=== PATIENT | male | born 1945 | race Caucasian/White ===

== ENCOUNTER 2024-10-19 21:10 | Inpatient (IN) ==
[2024-10-19 22:35] LABS: Hemoglobin 10.1 g/dl (14.0-18.0); Mean Corpuscular Hemoglobin 26.1 pg (25.0-34.0); Mean Corpuscular Hgb Conc 31.6 g/dL (32.0-36.0); Mean Corpuscular Volume 82.7 fL (80.0-100.0); Mean Platelet Volume 9.6 fL (9.4-12.4); Platelet Count 354 K/uL (130-400); RDW Coefficient of Variation 19.9 % (11.5-14.5); RDW Standard Deviation 58.4 fL (36.4-46.3); Red Blood Count 3.87 M/uL (4.70-6.10); White Blood Count 8.18 K/ul (4.8-10.8)
[2024-10-19 22:39] LABS: INR 1.1 (0.9-1.1); Partial Thromboplastin Time 28 Seconds (21-31); Prothrombin Time 12.1 Seconds (9.0-12.0)
[2024-10-19 22:48] LABS: Alanine Aminotransferase 10 U/L (7-52); Albumin Globulin Ratio 0.9 (0.9-2); Albumin Level 2.7 gm/dl (3.4-5.0); Alkaline Phosphatase 79 U/L (34-104); Anion Gap 3 (3-11); BUN Creatinine Ratio 43.2 (10-20); Bilirubin,Total 0.4 mg/dl (0.2-1.0); Blood Urea Nitrogen 48 mg/dl (6-23); Carbon Dioxide 38 mmol/L (21-32); Chloride 93 mmol/L (98-107); Creatinine Clr Calc Pharmacy 64.5 ml/min; Globulin 3.1 gm/dl (2.5-4.0); Glucose 191 mg/dl (70-99(Fasting)); Sodium 134 mmol/L (136-145); Total Protein 5.8 gm/dl (6.0-8.3); Troponin I High Sensitivity 16.8 pg/ml (0-20)
--- NOTE | 2024-10-19 23:17 | Emergency Department Note ---
Impression & Plan GI bleed, Sacral wound, Anemia ED Provider Note Name: MALATHI RIVERS Age: 79 Sex: Male Arrives Via: Ambulance Informant: Patient, outpatient records ED Provider: Khalif Dangelo MD Chief Complaint: Bloody stool Impression: As per impressions above Medical Decision Makin-year-old gentleman with a history of diabetes, GERD, weakness, sacral ulcer arrives for evaluation of GI bleed. Patient currently lives in rehab facility locally due to weakness and sacral ulcers. Reportedly developed GI bleed this afternoon and laboratory work at nursing facility showed hemoglobin of 7. On arrival patient is relatively stable appearing. He does have grossly bloody stool which is somewhat black. In the setting of elevated BUN would suspect this is an upper GI bleed which he does state he had in the past. He was given IV Protonix. His hemoglobin currently is 10. Unclear why the difference between the outpatient inpatient study but without hypotension and with current hemoglobin level would hold off on transfusion. Hospitalist consulted for further management. Patient has soft nontender abdomen. No clear indication for CT imaging emergently at this time. Triage/Nursing Notes reviewed by Me External Chart Review by me: I reviewed the outpatient records from local [facility] and notes from 10/19/2024 and his medication history in this chart. Differential:Diverticulosis, AVM, coagulopathy, colitis, inflammatory bowel disease, malignancy, Hayley-Cummins tear, esophagitis, peptic ulcer disease, variceal bleed, gastritis, epistaxis, fissure, hemorrhoids, as well as other pathologies. Vital Signs: reviewed and remarkable for no significant abnormalities Labs:ED labs Reviewed by me and remarkable for mild anemia, elevated bun Cardiac/Tele Monitoring: Cardiac Monitoring: An Order was placed for continuous cardiac monitoring. The monitor shows a rate of 80 with a normal sinus rhythm. Consults:Discussed with Dr. Baer of the hospitalist service who will bring in for further management. Plan: Disposition:Hospitalization. Condition: Good History of Present Illness: 79-year-old gentleman arrives for evaluation of a GI bleed. Patient is currently staying at local rehab facility for generalized weakness and ulcers of the sacrum. He been transferred [facility] a few days ago. Patient notes he had attempted to go home without much success a few days ago. He has some chronic lower pelvic discomfort but denies any change in his pain in the last few days. He has had no recent falls per patient. He denies any abdominal pain. Patient reports that this afternoon/evening started noticing blood in the stool. They checked her hemoglobin at the rehab facility where initial hemoglobin was 7.3. Patient states he is unsure whether he is on any blood thinners. He believes he was on a blood thinner in the past. Past Medical History: Diabetes, GERD, chronic weakness, sacral ulcer Home Medications:See Below Allergies: Patient is unsure if he has any allergies Vitals:Blood Pressure: 105/62, Pulse 85, RR 16, T 36.9C, O2 99% on 2L NC Physical Exam: GENERAL: Patient is chronically unwell appearing and in no distress. RESPIRATORY: No dyspnea. Clear to auscultation and equal bilaterally. CARDIOVASCULAR: Regular rate and rhythm.No murmur appreciated. GASTROINTESTINAL: Abdomen soft, non-tender, no peritonitis. Large right inguinal hernia into scrotum. Large amount of black/bloody stool within diaper. Indwelling Valentine catheter noted EXTREMITIES: Normal motion all extremities, no cyanosis, no edema. NEUROLOGIC: Alert and oriented. No focal neurologic deficits appreciated SKIN: No rash, no jaundice, no diaphoresis. PSYCH: Appropriate GCS: 15 ED Course: Times/Reassessments: Patient in no distress he is comfortable plan for admission. Khalif Dangelo MD Past Med/Surg History Problem List (Updated 10/20/24 @ 04:29 by Khalif Dangelo MD) Anemia (Acute) (HFpEF) heart failure with preserved ejection fraction Type 2 diabetes mellitus Discitis Hyponatremia Sacral wound (Acute) GI bleed (Acute) Social History Smoking Status: Former smoker Hx Alcohol Use: Yes Alcohol type: beer Hx Substance Use: No Preferred Language: Montserratian Specialized Developer Required: No Beliefs That Will Affect Care: None Current Living Situation: Rehab Other Information That Helps Us Care for You: No Feels Safe at Home: Yes Safety Concerns: Feels Safe At This Time Assistive Devices: Denture - Upper, Denture - Lower, Glasses, Hospital Bed, Oxygen - Continuous and Walker Allergies Allergies Allergy/AdvReac Type Severity Reaction Status Date / Time No Known Allergies Allergy Verified 10/19/24 22:38 Home Meds Home Medications Medication Instructions Recorded Confirmed acetaminophen 325 mg tablet 650 mg PO Q4 PRN PAIN 1-3 10/19/24 10/19/24 acetaminophen 500 mg tablet 500 mg PO Q4 PRN TEMP > OR = 100.5 10/19/24 10/19/24 atorvastatin 10 mg tablet 10 mg PO HS 10/19/24 10/19/24 calcium carbonate 500 mg PO Q8 PRN Indigestion 10/19/24 10/19/24 ceftriaxone 2 gram solution for 2,000 mg IV .QDL 10/19/24 10/19/24 injection docusate sodium 100 mg capsule 100 mg PO .Q12 HR PRN Constipation 10/19/24 10/19/24 (Colace) empagliflozin 25 mg tablet 25 mg PO QAM 10/19/24 10/19/24 (Jardiance) ipratropium 0.5 mg-albuterol 3 mg 3 ml inhalation TID 10/19/24 10/19/24 (2.5 mg base)/3 mL nebulization soln lidocaine 4 % topical patch 1 patch topical DAILY 10/19/24 10/19/24 losartan 25 mg tablet 25 mg PO DAILY 10/19/24 10/19/24 melatonin 3 mg tablet 6 mg PO HS 10/19/24 10/19/24 naloxone 4 mg/actuation nasal spray 4 mg intranasal UD PRN Opioid 10/19/24 10/19/24 Overdose nicotine 14 mg/24 hr daily 1 patch transdermal DAILY 10/19/24 10/19/24 transdermal patch ondansetron 4 mg disintegrating 4 mg PO Q6H PRN NAUSEA OR VOMITING 10/19/24 10/19/24 tablet oxycodone 20 mg tablet,crush 20 mg PO Q12H 10/19/24 10/19/24 resistant,extended release 12 hr oxycodone 5 mg tablet 5 mg PO Q4 PRN PAIN 4-6 10/19/24 10/19/24 pantoprazole 40 mg tablet,delayed 40 mg PO HS 10/19/24 10/19/24 release pioglitazone 15 mg tablet (Actos) 15 mg PO BIDM 10/19/24 10/19/24 polyethylene glycol 3350 17 17 g PO QDL PRN Constipation 10/19/24 10/19/24 gram/dose oral powder (Miralax) sennosides 8.6 mg-docusate sodium 1 tab-cap PO QDL PRN Constipation 10/19/24 10/19/24 50 mg tablet (Senokot-S) vancomycin 1.25 gram intravenous 1,250 mg IV QDL 10/19/24 10/19/24 solution oxycodone 5 mg tablet 10 mg PO Q4H PRN PAIN 7-10 10/20/24 10/20/24 Results & Data (ED) Vital Signs Vital Signs - 24 hr 10/19/24 21:20 10/19/24 21:20 10/19/24 21:35 Temperature 36.9 C Temperature Source Oral Pulse Rate 93 H 93 H Pulse Rate [Apical] Respiratory Rate 16 Respiratory Effort / Characteristics Non-Labored Spontaneous Respiratory Depth Normal Respiratory Pattern Regular Blood Pressure 108/66 Blood Pressure [Left Arm] Blood Pressure Mean 80 Blood Pressure Mean [Left Arm] Blood Pressure Position Semi-fowlers Blood Pressure Position [Left Arm] Pulse Oximetry 97 98 Oxygen Delivery Method Nasal Cannula Nasal Cannula Oxygen Flow Rate 2 2 Sepsis Recent Fever Within 48 Hours No Sepsis New/Unexplained Change in Mental Status N/A Sepsis Action Taken by Nursing No Action Required 10/19/24 22:00 10/19/24 23:03 10/19/24 23:24 Temperature Temperature Source Pulse Rate 86 87 Pulse Rate [Apical] 85 Respiratory Rate 16 23 21 Respiratory Effort / Characteristics Non-Labored Spontaneous Respiratory Depth Normal Respiratory Pattern Regular Blood Pressure 107/66 104/66 Blood Pressure [Left Arm] 105/62 Blood Pressure Mean 79 78 Blood Pressure Mean [Left Arm] 76 Blood Pressure Position Blood Pressure Position [Left Arm] Semi-fowlers Pulse Oximetry 99 99 Oxygen Delivery Method Nasal Cannula Nasal Cannula Oxygen Flow Rate 2 2 Sepsis Recent Fever Within 48 Hours Sepsis New/Unexplained Change in Mental Status Sepsis Action Taken by Nursing 10/19/24 23:51 Temperature Temperature Source Pulse Rate 88 Pulse Rate [Apical] Respiratory Rate 22 Respiratory Effort / Characteristics Respiratory Depth Respiratory Pattern Blood Pressure 95/59 L Blood Pressure [Left Arm] Blood Pressure Mean 71 Blood Pressure Mean [Left Arm] Blood Pressure Position Blood Pressure Position [Left Arm] Pulse Oximetry 99 Oxygen Delivery Method Nasal Cannula Oxygen Flow Rate 2 Sepsis Recent Fever Within 48 Hours Sepsis New/Unexplained Change in Mental Status Sepsis Action Taken by Nursing Laboratory Data 10/20/24 01:48 10/19/24 23:53 Lab Results 10/19/24 10/19/24 10/19/24 Range/Units 21:55 23:04 23:53 WBC 8.18 (4.8-10.8) K/ul RBC 3.87 L (4.70-6.10) M/uL Hgb 10.1 L (14.0-18.0) g/dl Hct 32.0 L (42.0-52.0) % MCV 82.7 (80.0-100.0) fL MCH 26.1 (25.0-34.0) pg MCHC 31.6 L (32.0-36.0) g/dL RDW Std Deviation 58.4 H (36.4-46.3) fL RDW Coeff of Arnulfo 19.9 H (11.5-14.5) % Plt Count 354 (130-400) K/uL MPV 9.6 (9.4-12.4) fL PT 12.1 H (9.0-12.0) Seconds INR 1.1 (0.9-1.1) APTT 28 (21-31) Seconds PTT Ratio 1.0 Sodium 134 L (136-145) mmol/L Potassium TNP Cancelled 3.6 Chloride 93 L (98-107) mmol/L Carbon Dioxide 38 H (21-32) mmol/L Anion Gap 3 (3-11) BUN 48 H (6-23) mg/dl Creatinine 1.11 (0.6-1.4) mg/dl Est Cr Clr Drug Dosing 64.5 ml/min eGFR 67.55 BUN/Creatinine Ratio 43.2 H (10-20) Glucose 191 H (70-99(Fasting)) mg/dl Calcium 9.0 (8.6-10.3) mg/dl Total Bilirubin 0.4 (0.2-1.0) mg/dl AST TNP Cancelled 14 ALT 10 (7-52) U/L Alkaline Phosphatase 79 (34-104) U/L Troponin I High Sens 16.8 (0-20) pg/ml Total Protein 5.8 L (6.0-8.3) gm/dl Albumin 2.7 L (3.4-5.0) gm/dl Globulin 3.1 (2.5-4.0) gm/dl Albumin/Globulin Ratio 0.9 (0.9-2) Blood Type A Positive Antibody Screen NEGATIVE Administered Medications Insulin Aspart (Insulin Aspart Per Unit Charge) 0 units SC Q6 ASHLEY Stop: 11/19/24 01:59 Last Admin: 10/20/24 02:00 Dose: 2 units Documented By: DEIDRA Co-signed By: DAWSON Oxycodone HCl (Oxycodone Hcl Ir 5 Mg Tab (Immediate Release)) 5 mg PO Q4 PRN PRN Reason: PAIN 4-6 Stop: 11/03/24 01:41 Last Admin: 10/20/24 02:00 Dose: 5 mg Documented By: DEIDRA Discontinued Medications Pantoprazole Sodium 80 mg/ (Dextrose) 120 mls @ 480 mls/hr IV ONE STA Stop: 10/19/24 23:29 Last Infusion: 10/20/24 00:31 Dose: Infused Documented By: Admin: 10/20/24 00:07 Dose: 480 mls/hr Documented By: ELICEO Melatonin (Melatonin 3 Mg Tab) 6 mg PO ONE ONE Stop: 10/20/24 01:48 Last Admin: 10/20/24 02:00 Dose: 6 mg Documented By: DEIDRA Discharge Plan Visit Data Chief Complaint: Rectal Bleed Stated Complaint: Rectal Bleed, Abnormal Labs ED Provider: Khalif Dangelo Discharge Problem: GI bleed, Sacral wound, Anemia Patient Disposition: Admitted As Inpatient Discharge Instructions Interventions: ED Discharge Assessment Last Done: 10/20/24 00:51 Discharge Problem: GI bleed Qualifiers: GI bleed type/associated pathology: unspecified gastrointestinal hemorrhage type Qualified Code(s): K92.2 - Gastrointestinal hemorrhage, unspecified Sacral wound Qualifiers: Encounter type: initial encounter Qualified Code(s): S31.000A - Unspecified open wound of lower back and pelvis without penetration into retroperitoneum, initial encounter Anemia Qualifiers: Anemia type: other cause Other causes of anemia: acute posthemorrhagic Q ualified Code(s): D62 - Acute posthemorrhagic anemia
--- NOTE | 2024-10-19 23:59 | History & Physical Report ---
Date of Service October 19, 2024 Assessment & Plan (1) GI bleed: (2) Sacral wound: (3) Hyponatremia: (4) Discitis: (5) Type 2 diabetes mellitus: (6) (HFpEF) heart failure with preserved ejection fraction: Plan 79-year-old male PMHx sacral ulcers, GERD, PUD w/ h/o UGI, HTN, HLD, and T2DM presenting for rectal bleed. ED evaluation reveals no leukocytosis, H&H 10.1/32, PT/INR 12.1/1.1; CMP sodium 134, potassium 3.6, chloride 93, CO2 38, BUN 48, ratio 43.2, glucose 191, protein 5.8, albumin 2.7; EKG pending; CXR pending; Provided with Pantoprazole 80mg IV in ED. Patient brought to [facility] rehab, admitted 09/28/2024 after presenting to acute care on 09/12/2024 for back pain with increased edema and urinary frequency. Found to have diastolic congestive heart failure and then was transferred to [facility] given acute exacerbation of heart failure with PNA. Was having ongoing back pain, total duration of 6 months; found to have L1-L2 compression fracture with retropulsion at that time. Repeat MRI performed with persistent changes and possibility of mild progression, neurosurgery and infectious disease recommended 6 weeks ceftriaxone and vancomycin for possibility of discitis. Does also have history of large right inguinal hernia but had refused surgical consultation. #GI bleed H/o UGI bleed, and with history of PUD, approximately 2 years ago; required hospitalization. Presenting today with reported blood in diaper noted per staff. No SOB/palpitations/dizziness/syncope. Reported [facility] hemoglobin was 7. No known history of liver disease. Hemodynamically stable at time of admission. - CBC H/H 10.1/32.0 - H/H q6hr - PT/INR 12.2/1.1; CMP BUN 48 - BUN supportive of UGI source, on pantoprazole at baseline - Type/screen pending - Pantoprazole 40mg IV BID - NPO - BMP am - GI consulted- appreciate input + recs #Sacral ulcer Ongoing; identified during hospitalization [facility]. Noted to have bleeding from area. - Wound care qshift - Would care consulted- appreciate input + recs - Gen sx consulted- appreciate input + recs #Hyponatremia Mildly decreased at admission, minimal recent intake also. - Na 134, glucose 191- corrected 136 - Serum osmol, Urine Na, Urine Osmol pending - BMP am #Discitis Previously diagnosed discitis; with longstanding back pain and found to have compression fractures and recommended to be maintained on total duration of 6 weeks of ceftriaxone and vancomycin. - Still complaining of back pain, mostly located at the area of wound - Continue ceftriaxone + vancomycin - On oxycodone outpatient- may continue for pain #T2DM H/o DMT2; On metformin, pioglitazone, Jardiance. - Most recent A1C 7.9%; pending repeat - Glucose on admission 191 - Hold PO meds while SSI - SSI with target BSG range 110-140mg/dL, CF 30, carb ratio 10 - OF NOTE--> SSI at [facility] as follows: 70-130= 0U; 131-180= 2U; 181-240= 4U; 241-300= 6U; 301-350= 8U; 351-400= 10U; > 400= 12U - T2DM diet - BSG ACHS, q6h while npo - Pharm glycemic management consult placed, appreciate assistance- Adjust regimen as needed #HFpEF H/o HFpEF per report; presenting with bleeding; some edema BLE. On Bumex and Jardiance. Admitting weight 87.6 - Daily weights + strict I+Os - Echo pending - CXR pending - On Bumex at baseline- continue - Leg edema at admission, will promote darron stockings and then consider need for further diuresis- none at admission, also with softer BP initially - SCDs, darron stockings, promote leg elevation and frequent movement #? COPD- No O2 at baseline, presumed COPD per last hospital course; continue bronchodilator therapy #HTN- Losartan #HLD- Atorvastatin #R inguinal hernia- Identified on prior CTAP with some loops of bowel present in the hernia, patient is at risk for developing incarcerated bowel but had refused surgical consult for such Dispo: Admit, PCU VTE prophylaxis: SCD This document was dictated utilizing [employer]. Please excuse any grammatical errors that may be secondary to use of this software. Admission and Anticipated Discharge Date Admission Date: 10/20/2024 History of Present Illness Chief Complaint: Rectal bleeding Primary Care Provider: Peter W. Osbaldo, DO 79-year-old male PMHx sacral ulcers, GERD, PUD w/ h/o UGI, HTN, HLD, and T2DM presenting for rectal bleed. He was at [facility] rehab and the staff noted rectal bleeding on the day of arrival. Patient states that he is presenting today because of the wound on his backside which has been causing him pain. Reports that staff saw blood in his diaper earlier in the day, which was bright red in nature. States that he is having pain at the site specifically when moving. Reports that he does have a history of UGI but no liver disease. Some lower abdominal pain, no N/V/D/C per patient. Denies chest pain, SOB, palpitations, weakness, dizziness, or syncope. Patient without infectious symptoms or F/C. Was sent from [facility] for reported H/H 7.3/24.0 with overt blood in briefs. ED evaluation reveals no leukocytosis, H&H 10.1/32, PT/INR 12.1/1.1; CMP sodium 134, potassium 3.6, chloride 93, CO2 38, BUN 48, ratio 43.2, glucose 191, protein 5.8, albumin 2.7; EKG pending; CXR pending; Provided with Pantoprazole 80mg IV in ED. Patient brought to [facility] rehab, admitted 09/28/2024 after presenting to acute care on 09/12/2024 for back pain with increased edema and urinary frequency. Found to have diastolic congestive heart failure and then was transferred to [facility] given acute exacerbation of heart failure with PNA. Was having ongoing back pain, total duration of 6 months; found to have L1-L2 compression fracture with retropulsion at that time. Repeat MRI performed with persistent changes and possibility of mild progression, neurosurgery and infectious disease recommended 6 weeks ceftriaxone and vancomycin for possibility of discitis. Does also have history of large right inguinal hernia but had refused surgical consultation. Please see Dr. Baer's attestation for adjustments/additions to treatment plan. Allergies Allergy/AdvReac Type Severity Reaction Status Date / Time No Known Allergies Allergy Verified 10/19/24 22:38 Home Medications Medication Instructions Recorded Confirmed Type acetaminophen 325 mg tablet 650 mg PO Q4 PRN PAIN 1-3 10/19/24 10/19/24 History acetaminophen 500 mg tablet 500 mg PO Q4 PRN TEMP > OR = 100.5 10/19/24 10/19/24 History atorvastatin 10 mg tablet 10 mg PO HS 10/19/24 10/19/24 History calcium carbonate 500 mg PO Q8 PRN Indigestion 10/19/24 10/19/24 History ceftriaxone 2 gram solution for 2,000 mg IV .QDL 10/19/24 10/19/24 History injection docusate sodium 100 mg capsule 100 mg PO .Q12 HR PRN Constipation 10/19/24 10/19/24 History (Colace) empagliflozin 25 mg tablet 25 mg PO QAM 10/19/24 10/19/24 History (Jardiance) ipratropium 0.5 mg-albuterol 3 mg 3 ml inhalation TID 10/19/24 10/19/24 History (2.5 mg base)/3 mL nebulization soln lidocaine 4 % topical patch 1 patch topical DAILY 10/19/24 10/19/24 History losartan 25 mg tablet 25 mg PO DAILY 10/19/24 10/19/24 History melatonin 3 mg tablet 6 mg PO HS 10/19/24 10/19/24 History naloxone 4 mg/actuation nasal spray 4 mg intranasal UD PRN Opioid 10/19/24 10/19/24 History Overdose nicotine 14 mg/24 hr daily 1 patch transdermal DAILY 10/19/24 10/19/24 History transdermal patch ondansetron 4 mg disintegrating 4 mg PO Q6H PRN NAUSEA OR VOMITING 10/19/24 10/19/24 History tablet oxycodone 20 mg tablet,crush 20 mg PO Q12H 10/19/24 10/19/24 History resistant,extended release 12 hr oxycodone 5 mg tablet 5 mg PO Q4 PRN PAIN 4-6 10/19/24 10/19/24 History pantoprazole 40 mg tablet,delayed 40 mg PO HS 10/19/24 10/19/24 History release pioglitazone 15 mg tablet (Actos) 15 mg PO BIDM 10/19/24 10/19/24 History polyethylene glycol 3350 17 17 g PO QDL PRN Constipation 10/19/24 10/19/24 History gram/dose oral powder (Miralax) sennosides 8.6 mg-docusate sodium 1 tab-cap PO QDL PRN Constipation 10/19/24 10/19/24 History 50 mg tablet (Senokot-S) vancomycin 1.25 gram intravenous 1,250 mg IV QDL 10/19/24 10/19/24 History solution bumetanide 1 mg tablet 1 mg PO BID 10/20/24 10/20/24 History bumetanide 1 mg tablet mg 10/20/24 History oxycodone 5 mg tablet 10 mg PO Q4H PRN PAIN 7-10 10/20/24 10/20/24 History Past Med/Surg History Problem List (Updated 10/20/24 @ 04:29 by Khalif Dangelo MD) Anemia (Acute) (HFpEF) heart failure with preserved ejection fraction Type 2 diabetes mellitus Discitis Hyponatremia Sacral wound (Acute) GI bleed (Acute) Social History Smoking Status: Former smoker Hx Alcohol Use: Yes Alcohol type: beer Hx Substance Use: No Preferred Language: German Guest Room Attendant Required: No Beliefs That Will Affect Care: None Current Living Situation: Rehab Other Information That Helps Us Care for You: No Feels Safe at Home: Yes Safety Concerns: Feels Safe At This Time Assistive Devices: Denture - Upper, Denture - Lower, Glasses, Hospital Bed, Oxygen - Continuous and Walker Review of Systems Review of Systems: All systems reviewed & are unremarkable except as noted in Subjective Physical Exam Physical Exam: General: No acute distress Skin: Warm and dry Head: Normocephalic, atraumatic Eyes: PERRL, conjunctivae clear, sclera non-icteric ENT: External ear and ear canal without swelling; nose atraumatic; good dentition, tongue normal appearance, pharynx normal Neck: Supple, no LAD Cardio: RRR, no M/G/R, S1 and S2 normal Resp: No respiratory distress, Lungs CTA in all lobes bilaterally, no wheezes, rales, or rhonchi; wearing nasal cannula Abdomen: Soft, symmetric, nontender; No masses or hepatosplenomegaly; Bowel sounds normoactive MSK: No deformities; pulses palpable and equal; 2+ pitting edema. Neuro: Awake, alert; Sensation intact bilaterally; CN grossly intact Psych: Appropriate mood and affect; good judgement and insight. Results & Data Results & Data Vital Signs (Past 12 Hours) Vital Signs Temp Pulse Pulse Resp BP BP Pulse Ox 10/19/24 22:00 85 16 105/62 99 10/19/24 21:35 98 10/19/24 21:20 93 H 10/19/24 21:20 36.9 C 93 H 16 108/66 97 O2 Del Method O2 Flow Rate 10/19/24 22:00 Nasal Cannula 2 10/19/24 21:35 Nasal Cannula 2 10/19/24 21:20 10/19/24 21:20 Nasal Cannula 2 Laboratory Results 10/19/24 10/19/24 10/19/24 23:53 23:04 21:55 WBC 8.18 RBC 3.87 L Hgb 10.1 L Hct 32.0 L MCV 82.7 MCH 26.1 MCHC 31.6 L RDW Std Deviation 58.4 H RDW Coeff of Arnulfo 19.9 H Plt Count 354 MPV 9.6 PT 12.1 H INR 1.1 APTT 28 PTT Ratio 1.0 Sodium 134 L Potassium 3.6 Cancelled TNP Chloride 93 L Carbon Dioxide 38 H Anion Gap 3 BUN 48 H Creatinine 1.11 Est Cr Clr Drug Dosing 64.5 eGFR 67.55 BUN/Creatinine Ratio 43.2 H Glucose 191 H Calcium 9.0 Total Bilirubin 0.4 AST 14 Cancelled TNP ALT 10 Alkaline Phosphatase 79 Troponin I High Sens 16.8 Total Protein 5.8 L Albumin 2.7 L Globulin 3.1 Albumin/Globulin Ratio 0.9 Medications Administered Pantoprazole 80mg IV x 1 Code Status & VTE Plan Code Status DNR/DNI Supervising Physician Co-Signing Physician Notes I personally saw and examined the patient. I independently reviewed the labs, EKG, imaging, problem list, medication list, past medical history and family history. I verified all bruce points and agree with Yue Flores PA-C with the following exceptions and/or additions: 79-year-old male presents to the ER from [facility] due to rectal bleeding. Currently on IV antibiotics for discitis. O/E WN/WD, HS RRR, no murmurs, Chest CTAB, Abdo SNT, Sacral ulcer present without significant surrounding cellulitis but skin breakdown present A/P Acute GI bleed / melena - Pantoprazole 40mg IV BID, NPO, Consult gastroenterology Sacral ulcer / discitis - continue vanc/ceftriaxone, consult general surgery for possible need for debridement and wound care Hypotension - will hold losartan pending serial BP measurements T2DM - Actos should be discontinued given his heart failure diagnosis, otherwise pharmacy consulted for glycemic control while here PG Care Time/CCT Total # of Minutes Spent Total Time Spent with Patient: Total time spent is greater than 50% in coordination of care (as documented) at patient's floor/unit and/or counseling patient: Coding Level of Care Code 33022 INT INP/OBS CARE 3/75MIN Diagnoses GI bleed K92.2 Sacral wound S31.000A Hyponatremia E87.1 Discitis M46.40 Type 2 diabetes mellitus E11.9 (HFpEF) heart failure with preserved ejection fraction I50.30
[2024-10-20] MEDS: PANTOprazole 80 MG in DEXTROSE 5% 100 ML IV STA (00:07)
[2024-10-20 00:24] LABS: Potassium 3.6 mmol/L (3.5-5.1)
[2024-10-20] MEDS ORDERED: ONDANSETRON INJ 2 MG/ML 2 ML VIAL IV PRN (01:22)
[2024-10-20] MEDS ORDERED: POLYETHYLENE (MIRALAX) 17 GM PACK PO PRN (01:22)
[2024-10-20] MEDS ORDERED: GLUCOSE 40% GEL 15 GM TUBE PO PRN (01:38)
[2024-10-20] MEDS ORDERED: GLUCOSE 10 TAB/TUBE PO PRN (01:38)
[2024-10-20] MEDS ORDERED: PHARMACY GLYCEMIC MGMT CONSULT PRN (01:38)
[2024-10-20] MEDS ORDERED: CARBOHYDRATES FOR HYPOGLYCEMIA PO PRN (01:38)
[2024-10-20] MEDS ORDERED: GLUCAGON FOR INJ 1 MG VIAL SQ PRN (01:38)
[2024-10-20] MEDS ORDERED: DEXTROSE 50% 50 ML SYRINGE IV PRN (01:38)
[2024-10-20] MEDS ORDERED: NALOXONE NASAL SPRAY 4 MG ER HOMEPACK PRN (01:42)
[2024-10-20] MEDS ORDERED: CEFTRIAXONE 2 GM IV SCH (01:45)
[2024-10-20] MEDS ORDERED: CALCIUM CARBONATE 500 MG CHEWABLE TAB PO PRN (01:51)
[2024-10-20] MEDS: oxyCODONE HCL IR 5 MG TAB (IMMEDIATE RELEASE) PO PRN ×2 (02:00→15:56)
[2024-10-20] MEDS: INSULIN ASPART PER UNIT CHARGE SC SCH ×2 (02:00→17:24)
[2024-10-20] MEDS: MELATONIN 3 MG TAB PO ONE (02:00)
--- NOTE | 2024-10-20 02:21 | Surgery Consultation ---
<Statement entered by Chloe Weiner - 10/20/24 13:46> I have discussed this case with the surgical PA and I agree with this plan. Date of Consultation October 20, 2024 Assessment & Plan (1) Sacral wound: Patient has been admitted on the hospitalist service from surgery perspective we recommend the following: There is concern the patient has a GI bleed and gastroenterology has been consulted will await their recommendations Would recommend following serial labs providing transfusions as needed Concerning patient's sacral wound: Offloading measures should be employed Wound care nurse has been consulted and we will continue local wound care through this evening Would recommend keeping the patient n.p.o. until he is evaluated by surgical attending on the morning of 10/20/2024 and a determination will be made if patient requires surgical debridement in the operating room; ultimately as this may need to be deferred until the patient is stabilized from a GI bleed standpoint Additional recommendations will be forthcoming based on his clinical course as it unfolds History of Present Illness Reason for Consultation: Sacral wound Attending Physician: Mark Baer MD History of Present Illness This is a 79-year-old male who was recently hospitalized at [facility] secondary to edema and urinary frequency. The patient was treated for diastolic congestive heart failure and then transferred to [facility] where he was treated again for congestive heart failure as well as pneumonia. During this hospitalization the patient was noted to have significant back pain and there is concern about discitis on an MRI. Patient was seen in consultation by neurosurgery and infectious disease were 6-week course of antibiotics in the form of Rocephin and vancomycin were recommended. Patient [facility] where he was then transferred to [facility] secondary to rectal bleeding. It is nowhere the mention that the patient developed a sacral ulcer which was reportedly present during his previous hospitalization. Patient notes some increasing pain in his sacral area but he denies any fevers, shakes, or chills. Laboratories were reviewed since arrival to [facility] where he had labs were white blood cell count and platelet count were normal. Patient's hemoglobin was noted to be 7.3 with a hematocrit of 24.0. Coagulation studies revealed an INR of 1.1. Chemistry profile showed sodium of 134 with a normal potassium. BUN was 48 and his creatinine was 1.1. The patient did have a repeat hemoglobin and hematocrit checked after his initial ones and his hemoglobin had risen to 10.1 and his hematocrit had risen to 32.0. At the time of my interview he was resting comfortably in bed he was in no distress. Allergies Allergy/AdvReac Type Severity Reaction Status Date / Time No Known Allergies Allergy Verified 10/19/24 22:38 Home Medications Medication Instructions Recorded Confirmed Type acetaminophen 325 mg tablet 650 mg PO Q4 PRN PAIN 1-3 10/19/24 10/19/24 History acetaminophen 500 mg tablet 500 mg PO Q4 PRN TEMP > OR = 100.5 10/19/24 10/19/24 History atorvastatin 10 mg tablet 10 mg PO HS 10/19/24 10/19/24 History calcium carbonate 500 mg PO Q8 PRN Indigestion 10/19/24 10/19/24 History ceftriaxone 2 gram solution for 2,000 mg IV .QDL 10/19/24 10/19/24 History injection docusate sodium 100 mg capsule 100 mg PO .Q12 HR PRN Constipation 10/19/24 10/19/24 History (Colace) empagliflozin 25 mg tablet 25 mg PO QAM 10/19/24 10/19/24 History (Jardiance) ipratropium 0.5 mg-albuterol 3 mg 3 ml inhalation TID 10/19/24 10/19/24 History (2.5 mg base)/3 mL nebulization soln lidocaine 4 % topical patch 1 patch topical DAILY 10/19/24 10/19/24 History losartan 25 mg tablet 25 mg PO DAILY 10/19/24 10/19/24 History melatonin 3 mg tablet 6 mg PO HS 10/19/24 10/19/24 History naloxone 4 mg/actuation nasal spray 4 mg intranasal UD PRN Opioid 10/19/24 10/19/24 History Overdose nicotine 14 mg/24 hr daily 1 patch transdermal DAILY 10/19/24 10/19/24 History transdermal patch ondansetron 4 mg disintegrating 4 mg PO Q6H PRN NAUSEA OR VOMITING 10/19/24 10/19/24 History tablet oxycodone 20 mg tablet,crush 20 mg PO Q12H 10/19/24 10/19/24 History resistant,extended release 12 hr oxycodone 5 mg tablet 5 mg PO Q4 PRN PAIN 4-6 10/19/24 10/19/24 History pantoprazole 40 mg tablet,delayed 40 mg PO HS 10/19/24 10/19/24 History release pioglitazone 15 mg tablet (Actos) 15 mg PO BIDM 10/19/24 10/19/24 History polyethylene glycol 3350 17 17 g PO QDL PRN Constipation 10/19/24 10/19/24 History gram/dose oral powder (Miralax) sennosides 8.6 mg-docusate sodium 1 tab-cap PO QDL PRN Constipation 10/19/24 10/19/24 History 50 mg tablet (Senokot-S) vancomycin 1.25 gram intravenous 1,250 mg IV QDL 10/19/24 10/19/24 History solution oxycodone 5 mg tablet 10 mg PO Q4H PRN PAIN 7-10 10/20/24 10/20/24 History Patient History Social History Smoking Status: Former smoker Hx Alcohol Use: Yes Alcohol type: beer Hx Substance Use: No Preferred Language: Iranian Technical Illustrations Map Inker Required: No Beliefs That Will Affect Care: None Current Living Situation: Rehab Other Information That Helps Us Care for You: No Feels Safe at Home: Yes Safety Concerns: Feels Safe At This Time Assistive Devices: Denture - Upper, Denture - Lower, Glasses, Hospital Bed, Oxygen - Continuous and Walker Review of Systems Review of Systems: All systems reviewed & are unremarkable except as noted in HPI & below Physical Exam Physical Exam: The patient was able to slightly logroll in the bed where I attempted to examine his sacrum. The patient did appear to have a sacral wound without any purulent drainage but there is necrotic tissue noted in the wound bed. I did not appreciate any crepitus noted in the soft tissue. Constitutional: WD/WN, vitals as above Eyes: no conjunctival abnormality ENMT: Ears: no hearing impairment and no external ear abnormality Mouth: no oropharynx abnormality Neck: trachea midline Respiratory: normal respiratory effort; no respiratory distress and no labored breathing Cardiovascular: Rate/Rhythm: regular rate and regular rhythm Gastrointestinal (Abdomen): Soft and nontender to palpation Musculoskeletal: No calf tenderness Skin: no rashes Neurologic: moves all extremities Psychiatric: A+Ox3, euthymic affect Results & Data Vital Signs (Past 12 Hours) Vital Signs Temp Pulse Pulse Resp BP BP Pulse Ox 10/20/24 01:23 36.6 C 88 18 138/71 97 10/20/24 00:30 82 20 125/69 98 10/20/24 00:04 93 H 20 115/64 98 10/19/24 23:51 88 22 95/59 L 99 10/19/24 23:24 87 21 104/66 10/19/24 23:03 86 23 107/66 99 10/19/24 22:00 85 16 105/62 99 10/19/24 21:35 98 10/19/24 21:20 93 H 10/19/24 21:20 36.9 C 93 H 16 108/66 97 O2 Del Method O2 Flow Rate 10/20/24 01:23 Nasal Cannula 2 10/20/24 00:30 Nasal Cannula 2 10/20/24 00:04 Nasal Cannula 2 10/19/24 23:51 Nasal Cannula 2 10/19/24 23:24 10/19/24 23:03 Nasal Cannula 2 10/19/24 22:00 Nasal Cannula 2 10/19/24 21:35 Nasal Cannula 2 10/19/24 21:20 10/19/24 21:20 Nasal Cannula 2 PG Care Time/CCT Total # of Minutes Spent Total Time Spent with Patient: Total time spent is greater than 50% in coordination of care (as documented) at patient's floor/unit and/or counseling patient: Coding Level of Care Code 84738 INT INP/OBS CARE 3/75MIN Diagnoses Sacral wound S31.000A
[2024-10-20 02:22] LABS: Hematocrit (blood only) 32.4 % (42.0-52.0); Hemoglobin 10.4 g/dl (14.0-18.0)
--- NOTE | 2024-10-20 02:30 | XRay Report ---
EXAM: XR chest 1V portable CLINICAL HISTORY: HF. TECHNIQUE: An X-ray image of the chest is obtained in AP projection. COMPARISON: No prior studies are available for comparison. FINDINGS: Pulmonary Parenchyma: The right middle zone and bilateral lower zone have inhomogeneous areas. Prominent perihilar bronchovascular markings with peribronchial cuffing. Obscuration of right diaphragm and right costophrenic angle. The left costophrenic angle is not seen. Heart and Mediastinum: Mild cardiomegaly. No mediastinal widening or masses. No hilar or mediastinal lymphadenopathy. Bony Thorax: Age indeterminate displaced fracture of the left clavicle. Soft Tissues: Soft tissues overlying the chest wall are unremarkable. IMPRESSION: 1. Mild cardiomegaly. Perihilar pulmonary congestion. 2. The right middle zone and bilateral lower consolidation could represent an infectious process/Pulmonary edema. This could be due to CHF. 3. Mild right pleural effusion. The left costophrenic angle is not properly seen. 4. Age indeterminate displaced fracture of the left clavicle. Electronically signed by Kelton Patiño 10-20-2024 02:30 AM
[2024-10-20] MEDS ORDERED: NALOXONE HCL 0.4 MG/1 ML VIAL/CARP IV PRN (02:31)
[2024-10-20] MEDS ORDERED: VANCOMYCIN CONSULT ACTIVE PRN (04:09)
[2024-10-20] MEDS: LACTATED RINGER'S 1,000 ML IV SCH (06:24)
[2024-10-20 07:02] LABS: Hematocrit (blood only) 30.7 % (42.0-52.0); Hemoglobin 9.7 g/dl (14.0-18.0)
[2024-10-20] MEDS: ALBUT/IPRATROP 3MG/0.5MG NEB 3 ML VIAL INH SCH (07:19)
[2024-10-20 08:14] LABS: Estimated Average Glucose 194 mg/dl; Hemoglobin A1C 8.4 % (4.5-5.6)
[2024-10-20 08:29] LABS: BUN Creatinine Ratio 44.7 (10-20); Calcium 9.1 mg/dl (8.6-10.3); Creatinine Clr Calc Pharmacy 72.3 ml/min; Potassium 4.1 mmol/L (3.5-5.1)
--- NOTE | 2024-10-20 08:49 | XRay Report ---
XR chest 2V PA/lateral CLINICAL HISTORY: Hypoxia. COMPARISON STUDY: Chest radiograph performed earlier today. FINDINGS: Subacute to chronic distal left clavicular fracture is incidentally noted. A right PICC is in place. Tip projects over the cavoatrial junction. No pneumothorax. Moderate right and small left p leural effusions are similar to prior exam. Perihilar and bibasilar opacities are noted. Left basilar opacity has slightly increased. Pulmonary edema has slightly progressed. The heart is mildly enlarge d. IMPRESSION: 1. Mild cardiomegaly with increase in interstitial pulmonary edema. 2. Moderate right and small left pleural effusions. Associated perihilar and bibasilar opacities, gre ater on the right, may represent atelectasis or consolidation. Radiographic follow-up is recommended. ACT 112: Negative or not required by law. Electronically signed by: Terry Tanner M.D. 10/20/2024 8:48 AM
[2024-10-20] MEDS ORDERED: BUMETANIDE 1 MG TAB PO SCH (09:00)
[2024-10-20] MEDS ORDERED: LOSARTAN POTASSIUM 25 MG TAB PO SCH (09:00)
[2024-10-20] MEDS: NICOTINE 14 MG/24 HR PATCH TD SCH (09:25)
[2024-10-20] MEDS: PANTOprazole 40 MG/10 ML SYR IV SCH (09:30)
[2024-10-20] MEDS: oxyCODONE HCL 20 MG TABCR (OxyCONTIN) PO SCH (09:31)
--- NOTE | 2024-10-20 09:55 | Pharmacy Report ---
Pharmacy PK ABX Note - Date of Service October 20, 2024 - Assessment and Plan Assessment 79 year old M receiving Vancomycin 1250 mg IV q24h for treatment of discitis. Currently also with sacral wound ulcer. Recently admitted 09/12/24 at [facility] with heart failure and Pneumonia. ID recommended 6 weeks of IV Vancomycin and Rocephin for discitis found on MRI. It is not clear when the IV antibiotics were started. He was discharged to Rehab on 09/28/24 but now admitted here for rectal bleeding. Surgery consulted for possible need for debridement of sacral wound. Plan Vancomycin * Trough obtained this morning was 16.9 mcg/ml. This is at goal. * Will continue with IV Vancomycin 1250 mg q24h per ID recs. * New trough level ordered for: 10/23/24 with AM labs Pharmacy will continue to follow and will adjust dose/frequency as necessary. Thank you. Pharmacy has transitioned to AUC monitoring for vancomycin. AUC/ANGEL is the preferred PK/PD target and is associated with decreased risk of nephrotoxicity compared to traditional trough targets.
--- NOTE | 2024-10-20 10:10 | Gastrointestinal Consultation ---
Date of Consultation October 20, 2024 Assessment & Plan (1) GI bleed: Patient had several black stools overnight that he tells me is similar to past UGI bleeding he had in the past. He did have a drop in hgb with elevated BUN. - keep NPO. - he is agreeable to proceed with an EGD today to further evaluate dark stools/amemia. - continue with protonix IV BID. Supervising Physician Co-Signing Physician Notes I personally saw and examined the patient. I have reviewed the chart and agree with the documentation provided by the PLANT CHANGER including discussion about the assessment, treatment and plan. Briefly, 79 year old male with a past medical history of sacral ulcers, GERD, PUD with UGI, HTN, HLD, and DM II who presented to [facility] for concerns over rectal bleeding. He was at [facility] rehab and the staff noted rectal bleeding on the day of arrival. Patients main concern is back pain due to a sacral ulcer. Overnight black bowel movements. He tells me this is similar to when he had an UGIB in the past at [facility]. He is not sure, but feels this was secondary to ulcers. Plan for EGD today. NPO and ppi bid iv. History of Present Illness Reason for Consultation: suspected GI bleed Requesting Physician: Valentina Flores PAC Attending Physician: Ashley Jerome MD History of Present Illness Patient is a 79 year old male with a past medical history of sacral ulcers, GERD, PUD with UGI, HTN, HLD, and DM II who presented to [facility] for concerns over rectal bleeding. He was at [facility] rehab and the staff noted rectal bleeding on the day of arrival. Patients main concern is back pain due to a sacral ulcer. Nursing tells me that over night he had several black bowel movements. He tells me this is similar to when he had an UGIB in the past at [facility]. He is not sure, but feels this was secondary to ulcers. 10/19/24 hgb 10.1. 10/20/24 9.7 he denies any nausea, vomiting, acid reflux, dysphagia, abdominal pain, brbpr. He denies nsaid use. Allergies Allergy/AdvReac Type Severity Reaction Status Date / Time No Known Allergies Allergy Verified 10/19/24 22:38 Home Medications Medication Instructions Recorded Confirmed Type acetaminophen 325 mg tablet 650 mg PO Q4 PRN PAIN 1-3 10/19/24 10/19/24 History acetaminophen 500 mg tablet 500 mg PO Q4 PRN TEMP > OR = 100.5 10/19/24 10/19/24 History atorvastatin 10 mg tablet 10 mg PO HS 10/19/24 10/19/24 History calcium carbonate 500 mg PO Q8 PRN Indigestion 10/19/24 10/19/24 History ceftriaxone 2 gram solution for 2,000 mg IV .QDL 10/19/24 10/19/24 History injection docusate sodium 100 mg capsule 100 mg PO .Q12 HR PRN Constipation 10/19/24 10/19/24 History (Colace) empagliflozin 25 mg tablet 25 mg PO QAM 10/19/24 10/19/24 History (Jardiance) ipratropium 0.5 mg-albuterol 3 mg 3 ml inhalation TID 10/19/24 10/19/24 History (2.5 mg base)/3 mL nebulization soln lidocaine 4 % topical patch 1 patch topical DAILY 10/19/24 10/19/24 History losartan 25 mg tablet 25 mg PO DAILY 10/19/24 10/19/24 History melatonin 3 mg tablet 6 mg PO HS 10/19/24 10/19/24 History naloxone 4 mg/actuation nasal spray 4 mg intranasal UD PRN Opioid 10/19/24 10/19/24 History Overdose nicotine 14 mg/24 hr daily 1 patch transdermal DAILY 10/19/24 10/19/24 History transdermal patch ondansetron 4 mg disintegrating 4 mg PO Q6H PRN NAUSEA OR VOMITING 10/19/24 10/19/24 History tablet oxycodone 20 mg tablet,crush 20 mg PO Q12H 10/19/24 10/19/24 History resistant,extended release 12 hr oxycodone 5 mg tablet 5 mg PO Q4 PRN PAIN 4-6 10/19/24 10/19/24 History pantoprazole 40 mg tablet,delayed 40 mg PO HS 10/19/24 10/19/24 History release pioglitazone 15 mg tablet (Actos) 15 mg PO BIDM 10/19/24 10/19/24 History polyethylene glycol 3350 17 17 g PO QDL PRN Constipation 10/19/24 10/19/24 History gram/dose oral powder (Miralax) sennosides 8.6 mg-docusate sodium 1 tab-cap PO QDL PRN Constipation 10/19/24 10/19/24 History 50 mg tablet (Senokot-S) vancomycin 1.25 gram intravenous 1,250 mg IV QDL 10/19/24 10/19/24 History solution bumetanide 1 mg tablet 1 mg PO BID 10/20/24 History oxycodone 5 mg tablet 10 mg PO Q4H PRN PAIN 7-10 10/20/24 10/20/24 History Patient History Social History Smoking Status: Former smoker Hx Alcohol Use: Yes Alcohol type: beer Hx Substance Use: No Preferred Language: Turkmen Communication Ability: Effective Room Inspector Required: No Beliefs That Will Affect Care: None Current Living Situation: Rehab Other Information That Helps Us Care for You: No Feels Safe at Home: Yes Safety Concerns: Feels Safe At This Time Assistive Devices: Denture - Upper, Denture - Lower, Glasses, Hospital Bed, Oxygen - Continuous and Walker Review of Systems Review of Systems: All systems reviewed & are unremarkable except as noted in HPI & below Physical Exam Constitutional: WD/WN, vitals as above Respiratory: normal respiratory effort, lungs clear to auscultation Cardiovascular: Rate/Rhythm: regular rate and regular rhythm Gastrointestinal (Abdomen): normal bowel sounds, soft, nontender, no hepatosplenomegaly Psychiatric: Orientation: alert and oriented x 3 Affect: euthymic affect Results & Data Vital Signs (Past 12 Hours) Vital Signs Temp Pulse Pulse Resp BP BP Pulse Ox 10/20/24 07:42 97.3 F L 51 L 19 116/50 L 95 10/20/24 07:19 88 18 98 10/20/24 03:39 97.3 F L 84 16 113/61 100 10/20/24 02:15 10/20/24 01:23 97.9 F 88 18 138/71 97 10/20/24 01:12 93 H 10/20/24 00:30 82 20 125/69 98 10/20/24 00:04 93 H 20 115/64 98 10/19/24 23:51 88 22 95/59 L 99 10/19/24 23:24 87 21 104/66 10/19/24 23:03 86 23 107/66 99 O2 Del Method O2 Flow Rate 10/20/24 07:42 Nasal Cannula 2 10/20/24 07:19 Nasal Cannula 2 10/20/24 03:39 Nasal Cannula 2.0 10/20/24 02:15 Nasal Cannula 2 10/20/24 01:23 Nasal Cannula 2 10/20/24 01:12 10/20/24 00:30 Nasal Cannula 2 10/20/24 00:04 Nasal Cannula 2 10/19/24 23:51 Nasal Cannula 2 10/19/24 23:24 10/19/24 23:03 Nasal Cannula 2 Coding Level of Care Code 52805 INT INP/OBS CARE 255MIN Diagnoses GI bleed K92.2 GI bleed type/associated pathology: unspecified gastrointestinal hemorrhage type (1) GI bleed GI bleed type/associated pathology: unspecified gastrointestinal hemorrhage type Qualified Code(s): K92.2 - Gastrointestinal hemorrhage, unspecified
--- NOTE | 2024-10-20 10:16 | Pharmacy Report ---
Pharmacy Glycemic Short Note 2 - Date of Service October 20, 2024 - Glycemic Short BSG Results (Last 24 hours): 10/19/24 10/20/24 10/20/24 21:55 01:53 05:59 Glucose 191 H POC Glucose 171 H 126 H 10/20/24 06:47 Glucose 116 H POC Glucose OUTPATIENT ANTIDIABETIC REGIMEN: * Jardiance 25 mg daily * Actos 15 mg BID HbA1c: 8.4% on 10/20/24 ASSESSMENT: * 79 y/o M admitted for rectal bleed, sacral wound ulcer and discitis being treated with IV antibiotics. He has history of Type 2 diabetes managed only with oral anti-diabetic meds. * Pharmacy consulted for glycemic management yesterday. Novolog started last night with moderate stress parameters. * Patient is NPO. BSG was only slightly elevated last night. Today fasting BSG is 116 mg/gl. Holding off on starting basal insulin since BSG at goal. * Possible surgical debridement of wound ulcer. Will continue to hold basal insulin due to NPO status. PLAN FOR INPATIENT GLYCEMIC CONTROL: * Hold outpatient oral diabetes medications * Basal insulin * NONE * Bolus insulin * NovoLog per scale ACHS or Q6hrs while NPO * Goal Range: Low 110 mg/dL - High 140 mg/dL * Correction Factor: 30 mg/dL/unit * Nutritional / Prandial insulin per carb ratio of 1 unit per 10 grams CHO consumed
[2024-10-20] MEDS: cefTRIAXone SODIUM 2,000 MG/50 ML BAG IV SCH (11:58)
--- NOTE | 2024-10-20 13:01 | Anesthesiology Consultation ---
Date of Service October 20, 2024 Assessment & Plan Chart Review Chart Review: Acceptable Risk for Surgery and Patient NOT seen in Pre Admission Testing ASA ASA3 Proposed Anesthesia Anesthesia Type: MAC Risk / Benefits Reviewed With: PT / POA / Parent / Guardian, Accepts Plan and Informed Consent Obtained Additional Comments: Pt. wishes TO CONTINUE HIS DNR throughout the perioperative period. DOES NOT WANT resuscitation including CPR or defibrillation or intubation History Surgery Operation Date: 10/20/24 16:55 Proposed Procedures p Esophagogastroduodenoscopy Payal Moe MD Height/Weight Height: 6 ft 3 in Weight: 80.2 kg Allergies Allergy/AdvReac Type Severity Reaction Status Date / Time No Known Allergies Allergy Verified 10/19/24 22:38 Medications Home Medications Medication Instructions Recorded Confirmed Last Taken acetaminophen 325 mg tablet 650 mg PO Q4 PRN PAIN 1-3 10/19/24 10/19/24 Unknown acetaminophen 500 mg tablet 500 mg PO Q4 PRN TEMP > OR = 100.5 10/19/24 10/19/24 Unknown atorvastatin 10 mg tablet 10 mg PO HS 10/19/24 10/19/24 Unknown calcium carbonate 500 mg PO Q8 PRN Indigestion 10/19/24 10/19/24 Unknown ceftriaxone 2 gram solution for 2,000 mg IV .QDL 10/19/24 10/19/24 Unknown injection docusate sodium 100 mg capsule 100 mg PO .Q12 HR PRN Constipation 10/19/24 10/19/24 Unknown (Colace) empagliflozin 25 mg tablet 25 mg PO QAM 10/19/24 10/19/24 Unknown (Jardiance) ipratropium 0.5 mg-albuterol 3 mg 3 ml inhalation TID 10/19/24 10/19/24 Unknown (2.5 mg base)/3 mL nebulization soln lidocaine 4 % topical patch 1 patch topical DAILY 10/19/24 10/19/24 Unknown losartan 25 mg tablet 25 mg PO DAILY 10/19/24 10/19/24 Unknown melatonin 3 mg tablet 6 mg PO HS 10/19/24 10/19/24 Unknown naloxone 4 mg/actuation nasal spray 4 mg intranasal UD PRN Opioid 10/19/24 10/19/24 Unknown Overdose nicotine 14 mg/24 hr daily 1 patch transdermal DAILY 10/19/24 10/19/24 Unknown transdermal patch ondansetron 4 mg disintegrating 4 mg PO Q6H PRN NAUSEA OR VOMITING 10/19/24 10/19/24 Unknown tablet oxycodone 20 mg tablet,crush 20 mg PO Q12H 10/19/24 10/19/24 Unknown resistant,extended release 12 hr oxycodone 5 mg tablet 5 mg PO Q4 PRN PAIN 4-6 10/19/24 10/19/24 Unknown pantoprazole 40 mg tablet,delayed 40 mg PO HS 10/19/24 10/19/24 Unknown release pioglitazone 15 mg tablet (Actos) 15 mg PO BIDM 10/19/24 10/19/24 Unknown polyethylene glycol 3350 17 17 g PO QDL PRN Constipation 10/19/24 10/19/24 Unknown gram/dose oral powder (Miralax) sennosides 8.6 mg-docusate sodium 1 tab-cap PO QDL PRN Constipation 10/19/24 10/19/24 Unknown 50 mg tablet (Senokot-S) vancomycin 1.25 gram intravenous 1,250 mg IV QDL 10/19/24 10/19/24 Unknown solution bumetanide 1 mg tablet 1 mg PO BID 10/20/24 Unknown oxycodone 5 mg tablet 10 mg PO Q4H PRN PAIN 7-10 10/20/24 10/20/24 Unknown Active Medications Generic Name Dose Route Start Last Admin Trade Name Freq PRN Reason Stop Dose Admin Albuterol 3 ml 10/20/24 07:00 10/20/24 12:55 Albut/Ipratrop 3mg/0.5mg Neb 3 Ml Vial INH 11/19/24 06:59 Not Given TIDR ASHLEY Protocol Pantoprazole Sodium 40 mg in 10 mls @ 5 mls/min 10/20/24 09:00 10/20/24 09:30 Protonix IV 11/19/24 08:59 5 mls/min BID ASHLEY Administration Ceftriaxone Sodium 2,000 mg in 50 mls @ 100 mls/hr 10/20/24 11:00 10/20/24 12:36 Rocephin IV 11/09/24 11:01 Infused Q24H ASHLEY Infusion Lactated Ringer's 1,000 mls @ 80 mls/hr 10/20/24 06:00 10/20/24 06:24 Lr IV 10/20/24 18:29 80 mls/hr .[id number] ASHLEY Administration Insulin Aspart 0 units 10/20/24 02:00 10/20/24 12:03 Insulin Aspart Per Unit Charge SC 11/19/24 01:59 1 units Q6 ASHLEY Administration Miscellaneous 1 each 10/20/24 09:00 10/20/24 09:21 Remove Nicoderm Patch N/A 11/19/24 08:59 Not Given QAM ASHLEY Nicotine 1 patch 10/20/24 09:00 10/20/24 09:25 Nicotine 14 Mg/24 Hr Patch TD 11/19/24 08:59 Not Given DAILY ASHLEY Oxycodone HCl 5 mg 10/20/24 01:42 10/20/24 02:00 Oxycodone Hcl Ir 5 Mg Tab (Immediate Release) PO 11/03/24 01:41 5 mg Q4 PRN Administration PAIN 4-6 Oxycodone HCl 20 mg 10/20/24 09:00 10/20/24 09:31 Oxycodone Hcl 20 Mg Tabcr (Oxycontin) PO 11/03/24 08:59 20 mg Q12H ASHLEY Administration NPO Date Last Intake of Fluids: 10/20/24 Time Last Intake of Fluids: 09:30 Date Last Intake of Solids: 10/19/24 Time Last Intake of Solids: 12:00 Exercise / Class Metabolic Activity III < 4 Walking/Shop/Light housework Past Anesthesia History No Hx of Anesthesia Complications and No Family Hx of Anesthesia Complications History of PONV No Hx of PONV and No Hx of Motion Sickness Social History Smoking Status: Former smoker Hx Alcohol Use: Yes Alcohol type: beer alcohol intake frequency: 3 or more drinks per day Hx Substance Use: No substance use type: does not use Physical Exam Vital Signs Last Vital Signs Temp 36.8 C 10/20/24 12:44 Pulse 92 H 10/20/24 12:44 Resp 20 10/20/24 12:44 BP 114/69 10/20/24 12:44 Pulse Ox 96 10/20/24 12:44 O2 Del Method Nasal Cannula 10/20/24 12:44 O2 Flow Rate 2 10/20/24 12:44 ENMT Mouth: + edentulous Thyromental Distance: > or= 3.5 Finger Breadths Mallampati Class: I Neck normal visual inspection Respiratory normal respiratory effort Auscultation: + wheezes Cardiovascular Rate/Rhythm: regular rate and regular rhythm Skin multiple ecchymoses Psychiatric Orientation: alert and oriented x 3 Testing Laboratory Results 10/20/24 06:39 10/20/24 06:47 PT 12.1 Seconds (9.0-12.0) H 10/19/24 21:55 INR 1.1 (0.9-1.1) 10/19/24 21:55 APTT 28 Seconds (21-31) 10/19/24 21:55 Hemoglobin A1c 8.4 % (4.5-5.6) H 10/20/24 06:39 Blood Type A Positive 10/19/24 23:04 Antibody Screen NEGATIVE 10/19/24 23:04 10/20/24 10/20/24 10/20/24 11:58 05:59 01:53 POC Glucose 151 H 126 H 171 H
--- NOTE | 2024-10-20 13:53 | GI REPORT ---
[facility] Patient: MALATHI RIVERS : 1945 Sex at : Male Age: 79 Years Procedure: Upper GI endoscopy Date: 10/20/2024 Attending Physician: Dagoberto Moe MD Referring MD: Ashley Jerome Md; Caden Roblero Indications: - Recent gastrointestinal bleeding - Suspected upper gastrointestinal bleeding - Heme positive stool Medications: - Monitored Anesthesia Care Complications: - No immediate complications. Estimated Blood Loss: - Estimated blood loss: None. Procedure: - Prior to the procedure, a History and Physical was performed, and patient medications and allergies were reviewed. The patient's tolerance of previous anesthesia was also reviewed. The risks and benefits of the procedure and the sedation options and risks were discussed with the patient. All questions were answered, and informed consent was obtained. Prior Anticoagulants: The patient has taken no anticoagulant or antiplatelet agents. ASA Grade Assessment: III - A patient with severe systemic disease. After reviewing the risks and benefits, the patient was deemed in satisfactory condition to undergo the procedure. - The egd scope was introduced through the mouth and advanced to the third part of the duodenum. - The upper GI endoscopy was accomplished without difficulty. - The patient tolerated the procedure well. Findings: - A small hiatal hernia was present. - LA Grade B (one or more mucosal breaks greater than 5 mm, not extending between the tops of two mucosal folds) esophagitis with no bleeding was found at the gastroesophageal junction (on retroflexion). NO biopsies done as active bleeding. - The entire examined stomach was normal. - The examined duodenum was normal. - Given no active bleeding noted in the upper GI tract, the patient was turned around and the same scope was introduced to the descending colon. The colon was not prepped but hemorrhoids were noted with green-brown stool. Then in the mid sigmoid and descending colon old blood was noted next to diverticuli. The findings quite suggest diverticular bleeding that stopped. My concern is he is quite ill and not a great candidate for colonoscopy. Impression: - Small hiatal hernia. - LA Grade B reflux esophagitis with no bleeding. Rule out Sosa's esophagus. - NO biopsies done as active bleeding. - Normal stomach. - Normal examined duodenum. - Given no active bleeding noted in the upper GI tract, the patient was turned around and the same scope was introduced to the descending colon. The colon was not prepped but hemorrhoids were noted with green-brown stool. Then in the mid sigmoid and descending colon old blood was noted next to diverticuli. The findings quite suggest diverticular bleeding that stopped. My concern is he is quite ill and not a great candidate for colonoscopy. - No specimens collected. Recommendation: - Discharge patient to home (ambulatory). - Resume previous diet. - Continue present medications. - Await pathology results. - Return to primary care physician as previously scheduled. - Patient has a contact number available for emergencies. The signs and symptoms of potential delayed complications were discussed with the patient. Return to normal activities tomorrow. Written discharge instructions were provided to the patient. - The unprepped flex sig suggest diverticular bleeding. A colon mass or ischemic colitis cannot be ruled out. There were hemorrhoids present but there was no active bleeding around them and brown stool was noted there. Around diverticulosis there was a significant amount of old blood hematochezia noted. He is not actively bleeding right now but my suspicion is highly consistent with diverticular bleeding that just happened. He has a very difficult colonoscopy given his respiratory issues, multiple medical problems, sacral wounds and will require complete prep for a colonoscopy. GI will follow but for now would favor supportive care unless he has active bleeding. if he does have active bleeding, I would suggest he gets transferred to a facility with IR guided embolization availability Procedure Code(s): - 83328, Esophagogastroduodenoscopy, flexible, transoral; diagnostic, including collection of specimen(s) by brushing or washing, when performed (separate procedure) Diagnosis Code(s): - K92.2, Gastrointestinal hemorrhage, unspecified - R19.5, Other fecal abnormalities - K44.9, Diaphragmatic hernia without obstruction or gangrene - K21.00, Gastro-esophageal reflux disease with esophagitis, without bleeding CPT(R) - 2023 copyright [employer]. All Rights Reserved. The CPT codes, CCI edits and ICD codes generated are intended as suggestions and were generated based on input data. These codes are preliminary and upon professional fee coder review may be revised to meet current compliance and payer requirements. The provider is responsible for the final determination of appropriate codes, and modifiers. Dagoberto Moe MD This document has been electronically signed. Note Initiated:10/20/2024 Note Completed:10/20/2024 1:52 PM \\[email or web address]\[id number]
--- NOTE | 2024-10-20 14:03 | Anesthesiology Progress Note ---
Date of Service October 20, 2024 Anesthesia Post Procedure Vital Signs Vital Signs: Temp Pulse Pulse Resp BP BP Pulse Ox 10/20/24 13:49 81 20 103/56 L 96 10/20/24 12:44 36.8 C 92 H 20 114/69 96 10/20/24 10:32 36.6 C 86 16 105/65 97 10/20/24 09:08 10/20/24 07:42 36.3 C L 51 L 19 116/50 L 95 10/20/24 07:19 88 18 98 10/20/24 07:00 77 10/20/24 03:39 36.3 C L 84 16 113/61 100 10/20/24 02:15 10/20/24 01:23 36.6 C 88 18 138/71 97 10/20/24 01:12 93 H 10/20/24 00:30 82 20 125/69 98 10/20/24 00:04 93 H 20 115/64 98 10/19/24 23:51 88 22 95/59 L 99 10/19/24 23:24 87 21 104/66 10/19/24 23:03 86 23 107/66 99 10/19/24 22:00 85 16 105/62 99 10/19/24 21:35 98 10/19/24 21:20 93 H 10/19/24 21:20 36.9 C 93 H 16 108/66 97 O2 Del Method O2 Flow Rate 10/20/24 13:49 Nasal Cannula 2 10/20/24 12:44 Nasal Cannula 2 10/20/24 10:32 Room Air 10/20/24 09:08 Nasal Cannula 2 10/20/24 07:42 Nasal Cannula 2 10/20/24 07:19 Nasal Cannula 2 10/20/24 07:00 10/20/24 03:39 Nasal Cannula 2.0 10/20/24 02:15 Nasal Cannula 2 10/20/24 01:23 Nasal Cannula 2 10/20/24 01:12 10/20/24 00:30 Nasal Cannula 2 10/20/24 00:04 Nasal Cannula 2 10/19/24 23:51 Nasal Cannula 2 10/19/24 23:24 10/19/24 23:03 Nasal Cannula 2 10/19/24 22:00 Nasal Cannula 2 10/19/24 21:35 Nasal Cannula 2 10/19/24 21:20 10/19/24 21:20 Nasal Cannula 2 Pain Intensity Buttock: Pain Intensity: 5 Back: Pain Intensity: 6 Transfer of Care Handoff Completed per policy Notes Mental Status: alert / awake / arousable and participated in evaluation Patient Amnestic to Procedure: Yes Nausea / Vomiting: adequately controlled Pain: adequately controlled Airway Patency, RR, SpO2: stable & adequate BP & HR: stable & adequate Hydration State: stable & adequate Anesthetic Complications: no major complications apparent and Pt Satisfied with anesthetic care
[2024-10-20] MEDS: PROPOFOL IV EMULSION 10 MG/ML 20 ML VIAL IV ONE (15:04)
[2024-10-20] MEDS: LIDOCAINE 2% 2 ML VIAL/AMP(20MG/ML) INFIL ONE ×2 (15:04)
[2024-10-20] MEDS: KETAMINE HCL 10MG/ML SYR ONE (15:04)
[2024-10-20] MEDS: MIDAZOLAM HCL 1 MG/ML 2ML VIAL ONE (15:04)
[2024-10-20] MEDS: PHENYLEPHRINE 100MCG/ML 5ML SYR ONE (15:04)
[2024-10-20] MEDS: VANCOMYCIN HCL 1,250 MG in SODIUM CHLORIDE 0.9% 250 ML IV SCH (15:08)
[2024-10-20] MEDS ORDERED: Nursing to Pharmacy Communication SCH (15:15)
[2024-10-20 15:21] LABS: Hematocrit (blood only) 30.3 % (42.0-52.0); Hemoglobin 9.5 g/dl (14.0-18.0)
--- NOTE | 2024-10-20 17:34 | Hospitalist Progress Note ---
<Statement entered by Ashley Jerome MD - 10/21/24 07:10> Lower GI bleed - passing maroon clots. May be old blood from diverticular bleed, ischemic colitis however no pain or tenderness. Supportive care, transfusing in evening for falling Hct and tachycardia, CTA abdomen ordered Date of Service October 20, 2024 Assessment & Plan (1) GI bleed: (2) Sacral wound: (3) Hyponatremia: (4) Discitis: (5) Type 2 diabetes mellitus: (6) (HFpEF) heart failure with preserved ejection fraction: Plan 79-year-old male PMHx sacral ulcers, GERD, PUD w/ h/o UGI, HTN, HLD, and T2DM presenting for rectal bleed. Patient brought to [facility] rehab, admitted 09/28/2024 after presenting to acute care on 09/12/2024 for back pain with increased edema and urinary frequency. Found to have diastolic congestive heart failure and then was transferred to [facility] given acute exacerbation of heart failure with PNA. Was having ongoing back pain, total duration of 6 months; found to have L1-L2 compression fracture with retropulsion at that time. Repeat MRI performed with persistent changes and possibility of mild progression, neurosurgery and infectious disease recommended 6 weeks ceftriaxone and vancomycin for possibility of discitis. Does also have history of large right inguinal hernia but had refused surgical consultation #GI bleed CBC w/ hgb stable at 9.5, BMP stable creatinine. GI consulted - recommended EGD/PPI s/p EGD - negative for bleeding. Also did portion of colonoscopy which revealed old blood in colon After EGD patient passed massive blood clot from rectum. repeat hgb stable. CTA of abdomen & pelvis pending. continue to monitor hgb q6h if rectal bleeding persists. Advanced to clear liquid diet. #Sacral ulcer Ongoing; identified during hospitalization [facility]. Noted to have bleeding from area. Wound care qshift Would care consulted- appreciate input + recs Gen sx consulted- may require debridement but continue to stabilize GI bleed prior to pursuing debridement. Continue pain management w/ outpatient regimen. #Hyponatremia - resolved. Mildly decreased at admission, minimal recent intake also. Na 137 continue to monitor. #Discitis Previously diagnosed discitis; with longstanding back pain and found to have compression fractures and recommended to be maintained on total duration of 6 weeks of ceftriaxone and vancomycin. Continue ceftriaxone + vancomycin On oxycodone outpatient- may continue for pain Obtain records from to review previous hospitalization. #T2DM H/o DMT2; On metformin, pioglitazone, Jardiance. A1c 8.4% SSI with target BSG range 110-140mg/dL, CF 30, carb ratio 10 Pharm glycemic management consult placed, appreciate assistance- Adjust regimen as needed #HFpEF H/o HFpEF per report; presenting with bleeding; some edema BLE. On Bumex and Jardiance. Admitting weight 87.6 Daily weights + strict I+Os Echo pending CXR -> mild cardiomegaly w/ increase in interstitial pulmonary edema. moderate right & small left pleural effusions. SCDs, darron stockings, promote leg elevation and frequent movement Will obtain records from [facility] to verify Bumex dosing. Currently on hold but will resume when able. Chronic conditions: COPD- No O2 at baseline, presumed COPD per last hospital course; continue bronchodilator therapy HTN- Losartan HLD- Atorvastatin R inguinal hernia- Identified on prior CTAP with some loops of bowel present in the hernia, patient is at risk for developing incarcerated bowel but had refused surgical consult for such Dispo: Admit, PCU VTE prophylaxis: SCD Updated patient's partner at bedside 10/20. Admission and Anticipated Discharge Date Admission Date: October 20, 2024 Subjective Patient seen and examined this morning. Patient reports to be doing okay today. He does have pain in his sacral wound region. Reports bloody BM's started yesterday. He reports lower abdominal discomfort as well. Reports increase in frequeny of BM's. Denies N/V. He reports he is not typically on oxygen at home but has been at rehab. Denies SOB or CP. Physical Exam Constitutional: WD/WN, vitals as above Eyes: PERRL, conjunctivae normal, anicteric sclerae Respiratory: normal respiratory effort, lungs clear to auscultation Cardiovascular: RRR, no murmur, no edema Gastrointestinal (Abdomen): +BS, lower abdomen tender to palpation Psychiatric: A+Ox3, euthymic affect Results & Data Results & Data Vital Signs (Past 12 Hours) Vital Signs Temp Pulse Pulse Resp BP Pulse Ox O2 Del Method 10/20/24 15:46 36.4 C L 106 H 20 104/57 L 92 Nasal Cannula 10/20/24 14:53 36.4 C L 85 20 108/57 L 95 Nasal Cannula 10/20/24 14:18 87 20 105/66 99 Nasal Cannula 10/20/24 14:04 80 20 110/64 98 Nasal Cannula 10/20/24 13:49 81 20 103/56 L 96 Nasal Cannula 10/20/24 12:44 36.8 C 92 H 20 114/69 96 Nasal Cannula 10/20/24 10:32 36.6 C 86 16 105/65 97 Room Air 10/20/24 09:08 Nasal Cannula 10/20/24 07:42 36.3 C L 51 L 19 116/50 L 95 Nasal Cannula 10/20/24 07:19 88 18 98 Nasal Cannula 10/20/24 07:00 77 O2 Flow Rate 10/20/24 15:46 2 10/20/24 14:53 10/20/24 14:18 2 10/20/24 14:04 2 10/20/24 13:49 2 10/20/24 12:44 2 10/20/24 10:32 10/20/24 09:08 2 10/20/24 07:42 2 10/20/24 07:19 2 10/20/24 07:00 PG Care Time/CCT Total # of Minutes Spent Total Time Spent with Patient: Total time spent is greater than 50% in coordination of care (as documented) at patient's floor/unit and/or counseling patient: Coding Level of Care Code 73682 SUB INP/OBS CARE 3/50MIN Diagnoses GI bleed K92.2 GI bleed type/associated pathology: unspecified gastrointestinal hemorrhage type Sacral wound S31.000A Encounter type: initial encounter Hyponatremia E87.1 Discitis M46.40 Type 2 diabetes mellitus E11.9 (HFpEF) heart failure with preserved ejection fraction I50.30 (1) GI bleed GI bleed type/associated pathology: unspecified gastrointestinal hemorrhage type Qualified Code(s): K92.2 - Gastrointestinal hemorrhage, unspecified (2) Sacral wound Encounter type: initial encounter Qualified Code(s): S31.000A - Unspecified open wound of lower back and pelvis without penetration into retroperitoneum, initial encounter
[2024-10-20 18:09] LABS: Hemoglobin 8.2 g/dl (14.0-18.0)
[2024-10-20] MEDS ORDERED: SODIUM CHLORIDE 0.9% 100 ML IV PRN (18:26)
[2024-10-20] MEDS: OPTIRAY 320 125ml IV ONE (18:50)
--- NOTE | 2024-10-20 19:19 | CT Scan Report ---
CT ABDOMEN and PELVIS with INTRAVENOUS CONTRAST HISTORY: Abdominal pain TECHNIQUE: CT abdomen and pelvis with contrast. IV CONTRAST: 100 mL of OMNIPAQUE 300 ENTERIC CONTRAST: Not Given COMPARISON: FINDINGS: LOWER CHEST: Cardiac enlargement. Small right greater than left pleural fluids. Adjacent confluent pulmonary densities are likely atelectasis with possible superimposed pneumonia. LIVER: No focal lesion identified. GALLBLADDER/BILIARY: Small layering intraluminal hyperdense material may represent small gallstones and/or sludge. No evidence of cholecystitis on CT. No abnormal biliary dilatation. SPLEEN: Unremarkable. PANCREAS: Unremarkable. ADRENALS: Unremarkable. KIDNEYS: Small cortical cysts. No stones or hydronephrosis identified. PERITONEUM/RETROPERITONEUM. No lymphadenopathy by size criteria. Extensive atherosclerosis with stenoses of the celiac trunk, the SMA, the renal arteries and the ANJU. Stenoses of the iliac arteries. Infrarenal abdominal aortic aneurysm measuring up to 3.3 cm. GASTROINTESTINAL: No obstruction. There are inflammatory changes of the rectum with extensive wall thickening. Areas of increased vascularity along the wall of the inflamed rectum. Small hiatal hernia. ABDOMINAL WALL: Evidence of prior repair along the anterior abdominal and pelvic wall with mesh. There is a large right inguinal hernia containing a significant portion of the nondistended ascending colon. 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 REPRODUCTIVE: No pelvic mass detected. URINARY BLADDER: Valentine catheter in place. Intraluminal air likely relates to current instrumentation. BONES: Age-indeterminate compression fractures of L1 and L2 vertebral bodies with moderate retropulsion. IMPRESSION: Proctitis with increased arterial vascularity along the wall of the inflamed rectum. This may represent the source of bleeding. Large right inguinal hernia containing a significant portion of the nondistended ascending colon. 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 Age-indeterminate compression fractures of L1 and L2 vertebral bodies with moderate retropulsion. Small pleural fluids with subjacent bibasilar pulmonary densities that may represent atelectasis and pneumonia. Electronically signed by Jean Cox 10-20-2024 7:19 PM
[2024-10-20] MEDS: ATORVASTATIN 10 MG TAB PO SCH (20:47)
[2024-10-20] MEDS: MELATONIN 3 MG TAB PO SCH (20:48)
[2024-10-21 01:23] LABS: Hematocrit (blood only) 26.4 % (42.0-52.0); Hemoglobin 8.6 g/dl (14.0-18.0)
[2024-10-21 06:50] LABS: Hematocrit (blood only) 27.6 % (42.0-52.0); Hemoglobin 8.7 g/dl (14.0-18.0)
[2024-10-21 07:01] LABS: BUN Creatinine Ratio 46.2 (10-20); Calcium 8.8 mg/dl (8.6-10.3); Creatinine Clr Calc Pharmacy 86.9 ml/min; Potassium 3.9 mmol/L (3.5-5.1)
--- NOTE | 2024-10-21 08:06 | Gastroenterology Progress Note ---
Date of Service October 21, 2024 Assessment & Plan (1) GI bleed: Plan: Appears to be clinically resolved. Most likely etiology is diverticulosis. Hemoglobin stable. Ultimately should consider colonoscopy. I am concerned about instituting a bowel prep in the setting of his sacral ulcers. I suspect his large scrotal hernia is mostly small bowel and should not interfere with the colonoscopy. Await primary team's input regarding timing of colonoscopy either as an inpatient or as an outpatient based on status of his sacral ulcers. Admission and Anticipated Discharge Date Admission Date: October 20, 2024 Subjective Denies overt bleeding no recent bowel movements. Denies abdominal pain shortness of breath or chest pain. Physical Exam Physical Exam: Eyes; anicteric HENT No masses Chest clear to A Cor S1, S2 physiologic Abd: softer nontender no masses Ext no edema Large scrotal hernia Results & Data Results & Data Vital Signs (Past 12 Hours) Vital Signs Temp Pulse Pulse Resp BP BP Pulse Ox 10/21/24 07:24 36.5 C 92 H 18 103/64 98 10/21/24 07:10 86 15 97 10/21/24 02:31 36.5 C 83 18 103/63 99 10/20/24 23:00 36.6 C 89 14 93/61 L 98 10/20/24 22:42 36.7 C 86 18 90/60 L 98 10/20/24 22:14 36.6 C 83 14 89/58 L 98 10/20/24 21:14 36.6 C 101 H 14 89/50 L 97 10/20/24 20:44 36.7 C 97 H 14 94/72 L 10/20/24 20:29 36.6 C 98 H 14 94/72 L 98 10/20/24 20:11 36.6 C 98 H 14 87/58 L 98 O2 Del Method O2 Flow Rate 10/21/24 07:24 Nasal Cannula 2 10/21/24 07:10 Nasal Cannula 2 10/21/24 02:31 Nasal Cannula 10/20/24 23:00 2 10/20/24 22:42 Nasal Cannula 10/20/24 22:14 2 10/20/24 21:14 2 10/20/24 20:44 10/20/24 20:29 2 10/20/24 20:11 2 Laboratory Results Laboratory Results - last 48 hr 10/19/24 10/19/24 10/19/24 21:55 23:04 23:53 WBC 8.18 RBC 3.87 L Hgb 10.1 L Hct 32.0 L MCV 82.7 MCH 26.1 MCHC 31.6 L RDW Std Deviation 58.4 H RDW Coeff of Arnulfo 19.9 H Plt Count 354 MPV 9.6 PT 12.1 H INR 1.1 APTT 28 PTT Ratio 1.0 Sodium 134 L Potassium TNP Cancelled 3.6 Chloride 93 L Carbon Dioxide 38 H Anion Gap 3 BUN 48 H Creatinine 1.11 Est Cr Clr Drug Dosing 64.5 eGFR 67.55 BUN/Creatinine Ratio 43.2 H Glucose 191 H POC Glucose Estimat Average Glucose Hemoglobin A1c Calcium 9.0 Total Bilirubin 0.4 AST TNP Cancelled 14 ALT 10 Alkaline Phosphatase 79 Troponin I High Sens 16.8 Total Protein 5.8 L Albumin 2.7 L Globulin 3.1 Albumin/Globulin Ratio 0.9 Nasal Screen MRSA (PCR) Random Vancomycin Blood Type A Positive Blood Type Recheck Antibody Screen NEGATIVE Crossmatch See Detail 10/20/24 10/20/24 10/20/24 01:33 01:48 01:53 WBC RBC Hgb 10.4 L Hct 32.4 L MCV MCH MCHC RDW Std Deviation RDW Coeff of Arnulfo Plt Count MPV PT INR APTT PTT Ratio Sodium Potassium Chloride Carbon Dioxide Anion Gap BUN Creatinine Est Cr Clr Drug Dosing eGFR BUN/Creatinine Ratio Glucose POC Glucose 171 H Estimat Average Glucose Hemoglobin A1c Calcium Total Bilirubin AST ALT Alkaline Phosphatase Troponin I High Sens Total Protein Albumin Globulin Albumin/Globulin Ratio Nasal Screen MRSA (PCR) Negative Random Vancomycin Blood Type Blood Type Recheck Antibody Screen Crossmatch 10/20/24 10/20/24 10/20/24 05:59 06:39 06:47 WBC RBC Hgb 9.7 L Hct 30.7 L MCV MCH MCHC RDW Std Deviation RDW Coeff of Arnulfo Plt Count MPV PT INR APTT PTT Ratio Sodium 137 Potassium 4.1 Chloride 95 L Carbon Dioxide 39 H Anion Gap 3 BUN 42 H Creatinine 0.94 Est Cr Clr Drug Dosing 72.3 eGFR 82.46 BUN/Creatinine Ratio 44.7 H Glucose 116 H POC Glucose 126 H Estimat Average Glucose 194 Hemoglobin A1c 8.4 H Calcium 9.1 Total Bilirubin AST ALT Alkaline Phosphatase Troponin I High Sens Total Protein Albumin Globulin Albumin/Globulin Ratio Nasal Screen MRSA (PCR) Random Vancomycin 16.9 Blood Type Blood Type Recheck Antibody Screen Crossmatch 10/20/24 10/20/24 10/20/24 11:58 15:03 16:25 WBC RBC Hgb 9.5 L Hct 30.3 L MCV MCH MCHC RDW Std Deviation RDW Coeff of Arnulfo Plt Count MPV PT INR APTT PTT Ratio Sodium Potassium Chloride Carbon Dioxide Anion Gap BUN Creatinine Est Cr Clr Drug Dosing eGFR BUN/Creatinine Ratio Glucose POC Glucose 151 H 137 H Estimat Average Glucose Hemoglobin A1c Calcium Total Bilirubin AST ALT Alkaline Phosphatase Troponin I High Sens Total Protein Albumin Globulin Albumin/Globulin Ratio Nasal Screen MRSA (PCR) Random Vancomycin Blood Type Blood Type Recheck Antibody Screen Crossmatch 10/20/24 10/20/24 10/20/24 17:58 19:01 20:22 WBC RBC Hgb 8.2 L Hct 26.0 L MCV MCH MCHC RDW Std Deviation RDW Coeff of Arnulfo Plt Count MPV PT INR APTT PTT Ratio Sodium Potassium Chloride Carbon Dioxide Anion Gap BUN Creatinine Est Cr Clr Drug Dosing eGFR BUN/Creatinine Ratio Glucose POC Glucose 174 H Estimat Average Glucose Hemoglobin A1c Calcium Total Bilirubin AST ALT Alkaline Phosphatase Troponin I High Sens Total Protein Albumin Globulin Albumin/Globulin Ratio Nasal Screen MRSA (PCR) Random Vancomycin Blood Type Blood Type Recheck A Positive Antibody Screen Crossmatch 10/21/24 10/21/24 10/21/24 00:32 05:57 07:25 WBC RBC Hgb 8.6 L 8.7 L Hct 26.4 L 27.6 L MCV MCH MCHC RDW Std Deviation RDW Coeff of Arnulfo Plt Count MPV PT INR APTT PTT Ratio Sodium 139 Potassium 3.9 Chloride 98 Carbon Dioxide 38 H Anion Gap 3 BUN 36 H Creatinine 0.78 Est Cr Clr Drug Dosing 86.9 eGFR 90.71 BUN/Creatinine Ratio 46.2 H Glucose 130 H POC Glucose 163 H Estimat Average Glucose Hemoglobin A1c Calcium 8.8 Total Bilirubin AST ALT Alkaline Phosphatase Troponin I High Sens Total Protein Albumin Globulin Albumin/Globulin Ratio Nasal Screen MRSA (PCR) Random Vancomycin Blood Type Blood Type Recheck Antibody Screen Crossmatch PG Care Time/CCT Total # of Minutes Spent Total Time Spent with Patient: Total time spent is greater than 50% in coordination of care (as documented) at patient's floor/unit and/or counseling patient: Coding Level of Care Code 55924 SUB INP/OBS CARE 3/50MIN Diagnoses GI bleed K92.2 GI bleed type/associated pathology: unspecified gastrointestinal hemorrhage type (1) GI bleed GI bleed type/associated pathology: unspecified gastrointestinal hemorrhage type Qualified Code(s): K92.2 - Gastrointestinal hemorrhage, unspecified
--- NOTE | 2024-10-21 10:07 | Pharmacy Report ---
Pharmacy PK ABX Note - Date of Service October 21, 2024 - Assessment and Plan Assessment 10/21: * Improvement in renal fxn today requires a dose increase for vancomycin. Will adjust timing of level as well. * Still attempting to figure out appropriate stop date for iv abx. 10/20: 79 year old M receiving Vancomycin 1250 mg IV q24h for treatment of discitis. Currently also with sacral wound ulcer. Recently admitted 09/12/24 at [facility] with heart failure and Pneumonia. ID recommended 6 weeks of IV Vancomycin and Rocephin for discitis found on MRI. It is not clear when the IV antibiotics were started. He was discharged to Rehab on 09/28/24 but now admitted here for rectal bleeding. Surgery consulted for possible need for debridement of sacral wound. Plan Vancomycin * Empirically increase dose to 1000 mg IV q12h * Predicted to achieve steady state AUC/ANGEL of 503 which is therapeutic. * Random level ordered for 10/22/24 in the AM Pharmacy will continue to follow and will adjust dose/frequency as necessary. Thank you. Pharmacy has transitioned to AUC monitoring for vancomycin. AUC/ANGEL is the preferred PK/PD target and is associated with decreased risk of nephrotoxicity compared to traditional trough targets.
--- NOTE | 2024-10-21 10:28 | Surgery Progress Note ---
Date of Service October 21, 2024 Assessment & Plan (1) Sacral wound: Plan: This will need debridement this hospital stay. If he becomes medically stable would consider performing on Wednesday or of next week. Will perform bone biopsy at that time. Monitor GI and cardiac issues to determine timing of debridement. (2) GI bleed: (3) Type 2 diabetes mellitus: (4) (HFpEF) heart failure with preserved ejection fraction: (5) Osteomyelitis of sacrum: Admission and Anticipated Discharge Date Admission Date: October 20, 2024 Subjective pt seen. no new complaints. he had several large bloody bm's past 24 hours. Physical Exam Constitutional: WD/WN, vitals as above no acute distress and not ill appearing Eyes: PERRL, conjunctivae normal, anicteric sclerae EOM intact bilaterally ENMT: external ear and nose normal, oropharynx normal Ears: no hearing impairment Neck: trachea midline, no thyromegaly Respiratory: normal respiratory effort; no respiratory distress and does not use accessory muscles Cardiovascular: Rate/Rhythm: regular rate and regular rhythm Gastrointestinal (Abdomen): Soft. Nontender. Large right inguinal hernia. Baseline per patient Musculoskeletal: Multiple necrotic ulcerations on the patient's back. 3 large ones in total. 1 is open and the other 2 are covered. All 3 have black eschar Skin: no rashes, warm and dry Psychiatric: Orientation: alert, oriented x 3 and cooperative Results & Data Vital Signs (Past 12 Hours) Vital Signs Temp Pulse Pulse Resp BP BP Pulse Ox 10/21/24 09:17 10/21/24 07:24 36.5 C 92 H 18 103/64 98 10/21/24 07:10 86 15 97 10/21/24 07:00 86 10/21/24 02:31 36.5 C 83 18 103/63 99 10/20/24 23:00 36.6 C 89 14 93/61 L 98 10/20/24 22:42 36.7 C 86 18 90/60 L 98 O2 Del Method O2 Flow Rate 10/21/24 09:17 Nasal Cannula 2 10/21/24 07:24 Nasal Cannula 2 10/21/24 07:10 Nasal Cannula 2 10/21/24 07:00 10/21/24 02:31 Nasal Cannula 10/20/24 23:00 2 10/20/24 22:42 Nasal Cannula PG Care Time/CCT Total # of Minutes Spent Total Time Spent with Patient: Total time spent is greater than 50% in coordination of care (as documented) at patient's floor/unit and/or counseling patient: Coding Level of Care Code 77602 SUB INP/OBS CARE 08/12MIN Diagnoses Sacral wound S31.000A Encounter type: initial encounter GI bleed K92.2 GI bleed type/associated pathology: unspecified gastrointestinal hemorrhage type Type 2 diabetes mellitus E11.9 (HFpEF) heart failure with preserved ejection fraction I50.30 Osteomyelitis of sacrum M46.28 (1) Sacral wound Encounter type: initial encounter Qualified Code(s): S31.000A - Unspecified open wound of lower back and pelvis without penetration into retroperitoneum, initial encounter (2) GI bleed GI bleed type/associated pathology: unspecified gastrointestinal hemorrhage type Qualified Code(s): K92.2 - Gastrointestinal hemorrhage, unspecified
[2024-10-21] MEDS: VANCOMYCIN HCL 1,000 MG/270 ML BAG IV STA (11:14)
[2024-10-21 11:47] LABS: Hematocrit (blood only) 26.1 % (42.0-52.0); Hemoglobin 8.3 g/dl (14.0-18.0)
[2024-10-21] MEDS: LANTUS PER UNIT CHARGE SC SCH (12:58)
--- NOTE | 2024-10-21 15:44 | Hospitalist Progress Note ---
Date of Service October 21, 2024 Assessment & Plan (1) GI bleed: (2) Sacral wound: (3) Hyponatremia: (4) Discitis: (5) Type 2 diabetes mellitus: (6) (HFpEF) heart failure with preserved ejection fraction: Plan 79-year-old male PMHx sacral ulcers, GERD, PUD w/ h/o UGI, HTN, HLD, and T2DM presenting for rectal bleed. Patient brought to [facility] rehab, admitted 09/28/2024 after presenting to acute care on 09/12/2024 for back pain with increased edema and urinary frequency. Found to have diastolic congestive heart failure and then was transferred to [facility] given acute exacerbation of heart failure with PNA. Was having ongoing back pain, total duration of 6 months; found to have L1-L2 compression fracture with retropulsion at that time. Repeat MRI performed with persistent changes and possibility of mild progression, neurosurgery and infectious disease recommended 6 weeks ceftriaxone and vancomycin for possibility of discitis. Does also have history of large right inguinal hernia but had refused surgical consultation #GI bleed GI consulted - recommended EGD/PPI, will require colonoscopy at some point when stable. inpatient vs outpatient. s/p EGD - negative for bleeding. Also did portion of colonoscopy which revealed old blood in colon After EGD patient passed massive blood clots from rectum, bleeding has stopped 10/21. CTA of abdomen & pelvis: proctitis. s/p 1 unit PRBCs 10/20. hgb stable at 8.3. #Sacral ulcer Ongoing; identified during hospitalization [facility]. Wound care qshift Would care consulted- appreciate input + recs Gen sx consulted- will go to OR for debridement next week & bone bx. CTA + for osteomyelitis of coccyx Continue vancomycin & Rocephin. - previously on for presumed discitis. Wound culture pending. Continue pain management w/ outpatient regimen. #Discitis Previously diagnosed discitis; with longstanding back pain and found to have compression fractures and recommended to be maintained on total duration of 6 weeks of ceftriaxone and vancomycin. Continue ceftriaxone + vancomycin On oxycodone outpatient- may continue for pain Obtain records from to review previous hospitalization. PT/OT consulted - recommend sitting w/ waffle cushion in chair if patient can tolerate. #T2DM H/o DMT2; On metformin, pioglitazone, Jardiance. A1c 8.4% SSI with target BSG range 110-140mg/dL, CF 30, carb ratio 10 Pharm glycemic management consult placed, appreciate assistance- Adjust regimen as needed #HFpEF H/o HFpEF per report; presenting with bleeding; some edema BLE. On Bumex and Jardiance. Admitting weight 87.6 Daily weights + strict I+Os Echo pending CXR -> mild cardiomegaly w/ increase in interstitial pulmonary edema. moderate right & small left pleural effusions. SCDs, darron stockings, promote leg elevation and frequent movement Will obtain records from [facility] to verify Bumex dosing. Currently on hold but will resume when able. Chronic conditions: COPD- No O2 at baseline, presumed COPD per last hospital course; continue bronchodilator therapy HTN- Losartan HLD- Atorvastatin R inguinal hernia- Identified on prior CTAP with some loops of bowel present in the hernia, patient is at risk for developing incarcerated bowel but had refused surgical consult for such Dispo: Admit, PCU VTE prophylaxis: SCD Discussed w/ general surgery 10/21. Admission and Anticipated Discharge Date Admission Date: October 20, 2024 Subjective Patient seen and examined this morning. Patient reports that his bleeding in his bowels has slowed down. He reports his abdomen is feeling better as well. Denies N/V. Denies CP or SOB. Reports pain in his sacral wound region. Physical Exam Constitutional: WD/WN, vitals as above Eyes: PERRL, conjunctivae normal, anicteric sclerae Respiratory: normal respiratory effort, lungs clear to auscultation Cardiovascular: RRR, no murmur, no edema Gastrointestinal (Abdomen): normal bowel sounds, soft, nontender, no hepatosplenomegaly Psychiatric: A+Ox3, euthymic affect Results & Data Results & Data Vital Signs (Past 12 Hours) Vital Signs Temp Pulse Pulse Resp BP Pulse Ox O2 Del Method 10/21/24 14:00 92 H 10/21/24 11:24 36.4 C L 100 H 19 94/55 L 95 Nasal Cannula 10/21/24 09:17 Nasal Cannula 10/21/24 07:24 36.5 C 92 H 18 103/64 98 Nasal Cannula 10/21/24 07:10 86 15 97 Nasal Cannula 10/21/24 07:00 86 O2 Flow Rate 10/21/24 14:00 10/21/24 11:24 2 10/21/24 09:17 2 10/21/24 07:24 2 10/21/24 07:10 2 10/21/24 07:00 PG Care Time/CCT Total # of Minutes Spent Total Time Spent with Patient: Total time spent is greater than 50% in coordination of care (as documented) at patient's floor/unit and/or counseling patient: Coding Level of Care Code 38568 SUB INP/OBS CARE 3/50MIN Diagnoses GI bleed K92.2 GI bleed type/associated pathology: unspecified gastrointestinal hemorrhage type Sacral wound S31.000A Encounter type: initial encounter Hyponatremia E87.1 Discitis M46.40 Type 2 diabetes mellitus E11.9 (HFpEF) heart failure with preserved ejection fraction I50.30 (1) GI bleed GI bleed type/associated pathology: unspecified gastrointestinal hemorrhage type Qualified Code(s): K92.2 - Gastrointestinal hemorrhage, unspecified (2) Sacral wound Encounter type: initial encounter Qualified Code(s): S31.000A - Unspecified open wound of lower back and pelvis without penetration into retroperitoneum, initial encounter
[2024-10-21] MEDS ORDERED: ALBUT/IPRATROP 3MG/0.5MG NEB 3 ML VIAL INH PRN (15:55)
[2024-10-21] MEDS: VANCOMYCIN HCL 1,000 MG/270 ML BAG IV SCH (20:18)
--- NOTE | 2024-10-22 08:18 | Gastroenterology Progress Note ---
Date of Service October 22, 2024 Assessment & Plan (1) GI bleed: Plan: Clinically resolved hemodynamically stable hemoglobin stable. Will ultimately need colonoscopy if patient agrees after management of his sacral ulcerations which is planned for this week. Admission and Anticipated Discharge Date Admission Date: October 20, 2024 Subjective Denies any further rectal bleeding no abdominal pain no shortness of breath no chest pain Physical Exam Physical Exam: No acute distress Respiratory rate regular Cardiac rhythm regular Abdomen soft nontender Results & Data Results & Data Vital Signs (Past 12 Hours) Vital Signs Temp Pulse Resp BP Pulse Ox O2 Del Method O2 Flow Rate 10/22/24 07:26 36.6 C 92 H 18 101/59 L 95 Nasal Cannula 2 10/22/24 02:21 36.8 C 90 20 105/60 94 Nasal Cannula 10/21/24 22:47 36.6 C 85 18 103/60 98 Nasal Cannula Laboratory Results Laboratory Results - last 48 hr 10/19/24 10/20/24 10/20/24 23:04 06:47 11:58 Hgb Hct Sodium 137 Potassium 4.1 Chloride 95 L Carbon Dioxide 39 H Anion Gap 3 BUN 42 H Creatinine 0.94 Est Cr Clr Drug Dosing 72.3 eGFR 82.46 BUN/Creatinine Ratio 44.7 H Glucose 116 H POC Glucose 151 H Calcium 9.1 Blood Type A Positive Blood Type Recheck Antibody Screen NEGATIVE Crossmatch See Detail 10/20/24 10/20/24 10/20/24 15:03 16:25 17:58 Hgb 9.5 L 8.2 L Hct 30.3 L 26.0 L Sodium Potassium Chloride Carbon Dioxide Anion Gap BUN Creatinine Est Cr Clr Drug Dosing eGFR BUN/Creatinine Ratio Glucose POC Glucose 137 H Calcium Blood Type Blood Type Recheck Antibody Screen Crossmatch 10/20/24 10/20/24 10/21/24 19:01 20:22 00:32 Hgb 8.6 L Hct 26.4 L Sodium Potassium Chloride Carbon Dioxide Anion Gap BUN Creatinine Est Cr Clr Drug Dosing eGFR BUN/Creatinine Ratio Glucose POC Glucose 174 H Calcium Blood Type Blood Type Recheck A Positive Antibody Screen Crossmatch 10/21/24 10/21/24 10/21/24 05:57 07:25 11:25 Hgb 8.7 L Hct 27.6 L Sodium 139 Potassium 3.9 Chloride 98 Carbon Dioxide 38 H Anion Gap 3 BUN 36 H Creatinine 0.78 Est Cr Clr Drug Dosing 86.9 eGFR 90.71 BUN/Creatinine Ratio 46.2 H Glucose 130 H POC Glucose 163 H 184 H Calcium 8.8 Blood Type Blood Type Recheck Antibody Screen Crossmatch 10/21/24 10/21/24 10/21/24 11:32 16:00 20:21 Hgb 8.3 L Hct 26.1 L Sodium Potassium Chloride Carbon Dioxide Anion Gap BUN Creatinine Est Cr Clr Drug Dosing eGFR BUN/Creatinine Ratio Glucose POC Glucose 123 H 118 H Calcium Blood Type Blood Type Recheck Antibody Screen Crossmatch 10/22/24 07:25 Hgb Hct Sodium Potassium Chloride Carbon Dioxide Anion Gap BUN Creatinine Est Cr Clr Drug Dosing eGFR BUN/Creatinine Ratio Glucose POC Glucose 141 H Calcium Blood Type Blood Type Recheck Antibody Screen Crossmatch PG Care Time/CCT Total # of Minutes Spent Total Time Spent with Patient: Total time spent is greater than 50% in coordination of care (as documented) at patient's floor/unit and/or counseling patient: Coding Level of Care Code 50563 SUB INP/OBS CARE 2/35MIN Diagnoses GI bleed K92.2 GI bleed type/associated pathology: unspecified gastrointestinal hemorrhage type (1) GI bleed GI bleed type/associated pathology: unspecified gastrointestinal hemorrhage type Qualified Code(s): K92.2 - Gastrointestinal hemorrhage, unspecified
[2024-10-22 09:10] LABS: Hematocrit (blood only) 24.8 % (42.0-52.0); Hemoglobin 7.9 g/dl (14.0-18.0); Mean Corpuscular Hemoglobin 26.5 pg (25.0-34.0); Mean Corpuscular Hgb Conc 31.9 g/dL (32.0-36.0); Mean Corpuscular Volume 83.2 fL (80.0-100.0); Mean Platelet Volume 9.9 fL (9.4-12.4); Platelet Count 273 K/uL (130-400); RDW Coefficient of Variation 19.8 % (11.5-14.5); RDW Standard Deviation 59.2 fL (36.4-46.3); Red Blood Count 2.98 M/uL (4.70-6.10)
[2024-10-22 09:24] LABS: BUN Creatinine Ratio 42.5 (10-20); Calcium 8.7 mg/dl (8.6-10.3); Creatinine Clr Calc Pharmacy 84.8 ml/min; Potassium 3.8 mmol/L (3.5-5.1)
[2024-10-22] MEDS ORDERED: VANCOMYCIN LEVEL ONE (10:00)
--- NOTE | 2024-10-22 10:39 | Pharmacy Report ---
Pharmacy PK ABX Note - Date of Service October 22, 2024 - Assessment and Plan Assessment 10/22: * Day #3 of Vancomycin. Ceftriaxone was changed to cefepime today given pseudomonas growing in sacral culture. * White count 15.9k today. SCr stable, 0.80 mg/dL this AM. * Vanc level therapeutic today but predicted AUC/ANGEL is supratherapeutic at steady state. Will decrease dose. 10/21: * Improvement in renal fxn today requires a dose increase for vancomycin. Will adjust timing of level as well. * Still attempting to figure out appropriate stop date for iv abx. 10/20: 79 year old M receiving Vancomycin 1250 mg IV q24h for treatment of discitis. Currently also with sacral wound ulcer. Recently admitted 09/12/24 at [facility] with heart failure and Pneumonia. ID recommended 6 weeks of IV Vancomycin and Rocephin for discitis found on MRI. It is not clear when the IV antibiotics were started. He was discharged to Rehab on 09/28/24 but now admitted here for rectal bleeding. Surgery consulted for possible need for debridement of sacral wound. Plan Vancomycin * Current regimen: 1000 mg IV every 12 hours * Random level obtained 10/22/24 resulted as 18.6 mcg/mL. This is predicted to be supratherapeutic at steady state with an AUC/ANGEL of 629 mg/L.hr. * Change to 750 mg IV every 12 hours. Predicted AUC at steady state: 481 mg/L.hr * Repeat random level ordered for: 10/23/24 Cefepime * 2000 mg IV every 8 hours Pharmacy will continue to follow and will adjust dose/frequency as necessary. Thank you. Pharmacy has transitioned to AUC monitoring for vancomycin. AUC/ANGEL is the preferred PK/PD target and is associated with decreased risk of nephrotoxicity compared to traditional trough targets.
[2024-10-22] MEDS: VANCOMYCIN LEVEL ONE (10:56)
[2024-10-22] MEDS: CEFEPIME 2000MG 2,000 MG/20 ML SYR IV STA (10:56)
--- NOTE | 2024-10-22 11:10 | Surgery Progress Note ---
Date of Service October 22, 2024 Assessment & Plan (1) Osteomyelitis of sacrum: Plan: Discussed with primary service. GI bleed seems to have stabilized. Will plan on surgical debridement in the operating room on Wednesday as well as sacral bone biopsy. We discussed the risks with the patient and I have answered all of his questions. Consent signed (2) Sacral wound: (3) Type 2 diabetes mellitus: Admission and Anticipated Discharge Date Admission Date: October 20, 2024 Subjective Patient seen. No new complaints Physical Exam Physical Exam: Exam unchanged. Results & Data Vital Signs (Past 12 Hours) Vital Signs Temp Pulse Resp BP Pulse Ox O2 Del Method O2 Flow Rate 10/22/24 11:00 Nasal Cannula 2 10/22/24 07:26 36.6 C 92 H 18 101/59 L 95 Nasal Cannula 2 10/22/24 02:21 36.8 C 90 20 105/60 94 Nasal Cannula PG Care Time/CCT Total # of Minutes Spent Total Time Spent with Patient: Total time spent is greater than 50% in coordination of care (as documented) at patient's floor/unit and/or counseling patient: Coding Level of Care Code 73890 SUB INP/OBS CARE 08/12MIN Diagnoses Osteomyelitis of sacrum M46.28 Sacral wound S31.000A Encounter type: initial encounter Type 2 diabetes mellitus E11.9 (2) Sacral wound Encounter type: initial encounter Qualified Code(s): S31.000A - Unspecified open wound of lower back and pelvis without penetration into retroperitoneum, initial encounter
[2024-10-22] MEDS: VANCOMYCIN 750 MG in SODIUM CHLORIDE 0.9% 250 ML IV STA (12:24)
--- NOTE | 2024-10-22 13:34 | Hospitalist Progress Note ---
Date of Service October 22, 2024 Assessment & Plan (1) GI bleed: (2) Sacral wound: (3) Hyponatremia: (4) Discitis: (5) Type 2 diabetes mellitus: (6) (HFpEF) heart failure with preserved ejection fraction: Plan 79-year-old male PMHx sacral ulcers, GERD, PUD w/ h/o UGI, HTN, HLD, and T2DM presenting for rectal bleed. Patient brought to [facility] rehab, admitted 09/28/2024 after presenting to acute care on 09/12/2024 for back pain with increased edema and urinary frequency. Found to have diastolic congestive heart failure and then was transferred to [facility] given acute exacerbation of heart failure with PNA. Was having ongoing back pain, total duration of 6 months; found to have L1-L2 compression fracture with retropulsion at that time. Repeat MRI performed with persistent changes and possibility of mild progression, neurosurgery and infectious disease recommended 6 weeks ceftriaxone and vancomycin for possibility of discitis. Does also have history of large right inguinal hernia but had refused surgical consultation #Sacral ulcer Ongoing; identified during hospitalization [facility]. CBC w/ leukocytosis 15.9, procal negative Gen sx consulted- will go to OR for debridement & bone bx 10/24 CTA + for osteomyelitis of coccyx Continue vancomycin & Rocephin. - previously on for presumed discitis. Wound culture + for E coli and Pseudomonas. Abx coverage switched from Rocepin to Cefepime 10/22, continue Vancomycin Continue pain management w/ outpatient regimen. Wound care qshift Would care consulted- appreciate input + recs #GI bleed - resolved GI consulted - recommended EGD/PPI, will require colonoscopy at some point when stable. inpatient vs outpatient. s/p EGD - negative for bleeding. Also did portion of colonoscopy which revealed old blood in colon After EGD patient passed massive blood clots from rectum, bleeding has stopped 10/21. CTA of abdomen & pelvis: proctitis. s/p 1 unit PRBCs 10/20. hgb 7.9, monitor closely #Discitis Previously diagnosed discitis; with longstanding back pain and found to have compression fractures and recommended to be maintained on total duration of 6 weeks of ceftriaxone and vancomycin. Continue vancomycin, Rocephin switched to Cefepime due to pseudomonas On oxycodone outpatient- may continue for pain Obtain records from to review previous hospitalization. PT/OT consulted #T2DM H/o DMT2; On metformin, pioglitazone, Jardiance. A1c 8.4% SSI with target BSG range 110-140mg/dL, CF 30, carb ratio 10 Pharm glycemic management consult placed, appreciate assistance- Adjust regimen as needed #HFpEF H/o HFpEF per report; presenting with bleeding; some edema BLE. On Bumex and Jardiance. Admitting weight 87.6 Daily weights + strict I+Os Echo pending CXR -> mild cardiomegaly w/ increase in interstitial pulmonary edema. moderate right & small left pleural effusions. SCDs, darron stockings, promote leg elevation and frequent movement Will obtain records from to verify Bumex dosing. Currently on hold but will resume when able. -> hopeful we can receive records 10/23. Monitor for improvement of BP to resume diuresis when able, pt continues to be low normal to hypotensive. Chronic conditions: COPD- No O2 at baseline, presumed COPD per last hospital course; continue bronchodilator therapy HTN- Losartan on hold secondary to hypotension HLD- Atorvastatin R inguinal hernia- Identified on prior CTAP with some loops of bowel present in the hernia, patient is at risk for developing incarcerated bowel but had refused surgical consult for such Dispo: Admit, PCU VTE prophylaxis: SCD, hold chemical until after surgery Discussed w/ general surgery 10/22. Admission and Anticipated Discharge Date Admission Date: October 20, 2024 Subjective Patient seen and examined this morning. Patient reports his rectal bleeding has resolved. he still is experiencing pain at his sacral wound site. He denies any SOB or CP. Physical Exam Constitutional: WD/WN, vitals as above Eyes: PERRL, conjunctivae normal, anicteric sclerae Respiratory: rhonchi scattered throughout, diminished Cardiovascular: 1+ pitting LE edema, no murmur, RR Psychiatric: A+Ox3, euthymic affect Results & Data Results & Data Vital Signs (Past 12 Hours) Vital Signs Temp Pulse Resp BP Pulse Ox O2 Del Method O2 Flow Rate 10/22/24 11:17 36.7 C 108 H 19 97/57 L 95 Room Air 10/22/24 11:00 Nasal Cannula 2 10/22/24 07:26 36.6 C 92 H 18 101/59 L 95 Nasal Cannula 2 04/06/25 02:21 36.8 C 90 20 105/60 94 Nasal Cannula PG Care Time/CCT Total # of Minutes Spent Total Time Spent with Patient: Total time spent is greater than 50% in coordination of care (as documented) at patient's floor/unit and/or counseling patient: Coding Level of Care Code 07423 SUB INP/OBS CARE 3/50MIN Diagnoses GI bleed K92.2 GI bleed type/associated pathology: unspecified gastrointestinal hemorrhage type Sacral wound S31.000A Encounter type: initial encounter Hyponatremia E87.1 Discitis M46.40 Type 2 diabetes mellitus E11.9 (HFpEF) heart failure with preserved ejection fraction I50.30 (1) GI bleed GI bleed type/associated pathology: unspecified gastrointestinal hemorrhage type Qualified Code(s): K92.2 - Gastrointestinal hemorrhage, unspecified (2) Sacral wound Encounter type: initial encounter Qualified Code(s): S31.000A - Unspecified open wound of lower back and pelvis without penetration into retroperitoneum, initial encounter
[2024-10-22] MEDS: INSULIN ASPART PER UNIT CHARGE SC ONE (16:45)
[2024-10-22] MEDS: CEFEPIME 2000MG 2,000 MG/20 ML SYR IV SCH (17:48)
[2024-10-22] MEDS: INSULIN ASPART PER UNIT CHARGE SC SCH (21:06)
[2024-10-22] MEDS: VANCOMYCIN 750 MG in SODIUM CHLORIDE 0.9% 250 ML IV SCH (21:23)
[2024-10-23] MEDS: ACETAMINOPHEN 325 MG TAB PO PRN (01:36)
[2024-10-23 05:45] LABS: Basophils # (auto) 0.03 K/uL (0.00-0.20); Basophils % (auto) 0.3 %; Eosinophils # (auto) 0.16 K/uL (0.00-0.50); Eosinophils % (auto) 1.4 %; Hematocrit (blood only) 22.2 % (42.0-52.0); Immature Granulocytes # (auto) 0.08 K/uL (0.01-0.20); Immature Granulocytes % (auto) 0.7 %; Lymphocytes # (auto) 0.58 K/uL (1.20-3.40); Lymphocytes % (auto) 5.1 %; Mean Corpuscular Hemoglobin 26.5 pg (25.0-34.0); Mean Corpuscular Hgb Conc 31.5 g/dL (32.0-36.0); Mean Corpuscular Volume 84.1 fL (80.0-100.0); Mean Platelet Volume 9.7 fL (9.4-12.4); Monocytes # (auto) 0.82 K/uL (0.11-0.59); Monocytes % (auto) 7.3 %; Neutrophils # (auto) 9.64 K/uL (1.40-6.50); Neutrophils % (auto) 85.2 %; Platelet Count 248 K/uL (130-400); RDW Coefficient of Variation 20.1 % (11.5-14.5); RDW Standard Deviation 60.9 fL (36.4-46.3); Red Blood Count 2.64 M/uL (4.70-6.10); White Blood Count 11.31 K/ul (4.8-10.8)
[2024-10-23 05:58] LABS: BUN Creatinine Ratio 45.5 (10-20); Calcium 8.3 mg/dl (8.6-10.3); Creatinine Clr Calc Pharmacy 77.1 ml/min; Potassium 3.7 mmol/L (3.5-5.1)
[2024-10-23 06:07] LABS: Anisocytosis Present; Poikilocytosis Present; Polychromasia 1+
--- NOTE | 2024-10-23 07:38 | Communication Note ---
Date of Service: October 23, 2024 Patient to undergo Sacral Debridement and Bone Biopsy with Dr. Mcclellan tomorrow, 10/24/2024. Patient will need to be made NPO after midnight for planned surgical intervention.
--- NOTE | 2024-10-23 08:38 | Hospitalist Progress Note ---
<Statement entered by Ashley Jerome MD - 10/23/24 17:47> Discussed with ID Dr. Lee Held atorvastatin while on daptomycin Awaiting more records but I don't think he's had cardiac event or stroke recently Date of Service October 23, 2024 Assessment & Plan (1) GI bleed: (2) Sacral wound: (3) Hyponatremia: (4) Discitis: (5) Type 2 diabetes mellitus: (6) (HFpEF) heart failure with preserved ejection fraction: Plan 79-year-old male PMHx sacral ulcers, GERD, PUD w/ h/o UGI, HTN, HLD, and T2DM presenting for rectal bleed. Had recent stay at [facility] with CHF, PNA and discitis. as having ongoing back pain, total duration of 6 months; found to have L1-L2 compression fracture with retropulsion at that time. Repeat MRI performed with persistent changes and possibility of mild progression, neurosurgery and infectious disease recommended 6 weeks ceftriaxone and vancomycin for possibility of discitis. Does also have history of large right inguinal hernia but had refused surgical consultation. From [facility] he [facility], was home for one day and then presented to [facility]. #Sacral ulcer - present on admission General surgery consulted- will go to OR for debridement & bone bx 10/24 CTA A/P: osteomyelitis of coccyx Wound culture: + for E coli ESBL and Pseudomonas -- abx switched to meropenem 10/23, ID consulted Pain control: prn tylenol and oxycodone Would care consulted- continue wound care qshift, low air loss bed ordered #GI bleed CTA of abdomen & pelvis: proctitis. GI consulted - s/p EGD without cause of bleed, started colo but not fully pr epped, will require colonoscopy at some point when stable. inpatient vs outpatient. s/p 1 unit PRBCs 10/20. Hgb 7.0 today, transfuse additional 1 unit PRBC for preparation for OR #Discitis Previously diagnosed discitis; with longstanding back pain and found to have compression fractures and recommended to be maintained on total duration of 6 weeks of ceftriaxone and vancomycin. ID following - continue vanco and meropenem Obtain records from to review previous hospitalization. PT/OT consulted #T2DM Home regimen: metformin, pioglitazone, Jardiance - HELD A1c 8.4% SSI with target BSG range 110-140mg/dL, CF 30, carb ratio 10 Pharm glycemic management consult #HFpEF H/o HFpEF per report; On Bumex (however not on list from [facility]) and Jardiance. Admitting weight 87.6 Daily weights + strict I+Os CXR: mild cardiomegaly w/ increase in interstitial pulmonary edema. moderate right & small left pleural effusions --> rec interval follow up SCDs, darron stockings, promote leg elevation and frequent movement Will obtain records from [facility] to verify Bumex dosing. Currently on hold because of low BP COPD- No O2 at baseline, presumed COPD per last hospital course; continue bronchodilator therapy HTN- Losartan on hold secondary to hypotension HLD- Atorvastatin R inguinal hernia- Identified on prior CTAP with some loops of bowel present in the hernia, patient is at risk for developing incarcerated bowel but had refused surgical consult for such Dispo: continued inpatient stay VTE prophylaxis: SCD, hold chemical until after surgery Partner updated at bedside 10/23 Admission and Anticipated Discharge Date Admission Date: October 20, 2024 Subjective patient seen sitting up in bed, partner at bedside reports some pain in his bakc denies any blood in his bowel movements or blood elsewhere does not require oxygen at home good appetite aware plan is for OR tomorrow tele SR PVCs 70-90s Review of Systems Review of Systems: All systems reviewed & are unremarkable except as noted in Subjective Physical Exam Physical Exam: General: NAD, VS as above Resp: normal respiratory effort, diminished in bases, on 2L CV: RRR, no murmur, Abd: normal bowel sounds, non tender, no hepatosplenomegaly Neuro: A&O x3, Skin: + wounds to b/l lower back and sacral area with black areas Results & Data Results & Data Vital Signs (Past 12 Hours) Vital Signs Temp Pulse Pulse Resp BP Pulse Ox O2 Del Method 10/23/24 07:53 Nasal Cannula 10/23/24 07:30 73 10/23/24 07:17 97.7 F 81 18 111/61 96 Nasal Cannula 10/23/24 03:29 97.3 F L 77 16 110/52 L 92 Nasal Cannula 10/22/24 23:00 97.5 F L 87 18 99/57 L 96 Nasal Cannula 10/22/24 22:00 85 O2 Flow Rate 10/23/24 07:53 2 10/23/24 07:30 04/07/25 07:17 2 10/23/24 03:29 2.0 10/22/24 23:00 2.0 10/22/24 22:00 Laboratory Results cbc and chemistry reviewed PG Care Time/CCT Total # of Minutes Spent Total Time Spent with Patient: Total time spent is greater than 50% in coordination of care (as documented) at patient's floor/unit and/or counseling patient: Coding Level of Care Code 43562 SUB INP/OBS CARE 3/50MIN Diagnoses GI bleed K92.2 GI bleed type/associated pathology: unspecified gastrointestinal hemorrhage type Sacral wound S31.000A Encounter type: initial encounter Hyponatremia E87.1 Discitis M46.40 Type 2 diabetes mellitus E11.9 (HFpEF) heart failure with preserved ejection fraction I50.30 (1) GI bleed GI bleed type/associated pathology: unspecified gastrointestinal hemorrhage type Qualified Code(s): K92.2 - Gastrointestinal hemorrhage, unspecified (2) Sacral wound Encounter type: initial encounter Qualified Code(s): S31.000A - Unspecified open wound of lower back and pelvis without penetration into retroperitoneum, initial encounter
[2024-10-23] MEDS ORDERED: SODIUM CHLORIDE 0.9% 100 ML IV PRN (08:47)
[2024-10-23] MEDS: MEROPENEM 500 MG in SYRINGE 0 ML IV SCH (09:47)
--- NOTE | 2024-10-23 10:11 | Pharmacy Report ---
Pharmacy PK ABX Note - Date of Service October 23, 2024 - Assessment and Plan Assessment 10/23/24: * Sacrum culture finalized as E.coli (ESBL) and Pseudomonas. Cefepime changed to meropenem. * Plan for OR tomorrow (10/24) for sacral debridement and bone biopsy. * Renal function largely stable. 10/22: * Day #3 of Vancomycin. Ceftriaxone was changed to cefepime today given pseudomonas growing in sacral culture. * White count 15.9k today. SCr stable, 0.80 mg/dL this AM. * Vanc level therapeutic today but predicted AUC/ANGEL is supratherapeutic at steady state. Will decrease dose. 10/21: * Improvement in renal fxn today requires a dose increase for vancomycin. Will adjust timing of level as well. * Still attempting to figure out appropriate stop date for iv abx. 10/20: 79 year old M receiving Vancomycin 1250 mg IV q24h for treatment of discitis. Currently also with sacral wound ulcer. Recently admitted 09/12/24 at [facility] with heart failure and Pneumonia. ID recommended 6 weeks of IV Vancomycin and Rocephin for discitis found on MRI. It is not clear when the IV antibiotics were started. He was discharged to Rehab on 09/28/24 but now admitted here for rectal bleeding. Surgery consulted for possible need for debridement of sacral wound. Plan Vancomycin * Current regimen: 750 mg IV every 12 hours * Random level obtained 10/23/24 resulted as 21.4 mcg/mL. This is predicted to achieve target AUC/ANGEL of 400-600 mg/L.hr * Predicted AUC at steady state: 534 mg/L.hr * Continue 750 mg IV every 12 hours * Will repeat level in the next 48-72 hours if therapy is continued and/or change in patient clinical status Meropenem * 500 mg IV q6h - appropriately dosed for indication/renal function Pharmacy will continue to follow and will adjust dose/frequency as necessary. Thank you. Pharmacy has transitioned to AUC monitoring for vancomycin. AUC/ANGEL is the preferred PK/PD target and is associated with decreased risk of nephrotoxicity compared to traditional trough targets.
[2024-10-23] MEDS: ALTEPLASE, RECOMBINANT 1 MG/ML 2ML VIAL INSTIL ONE (10:36)
--- NOTE | 2024-10-23 11:17 | Pharmacy Report ---
Pharmacy Glycemic Short Note 2 - Date of Service October 23, 2024 - Glycemic Short BSG Results (Last 24 hours): 10/22/24 10/22/24 10/22/24 11:16 15:57 15:58 Glucose POC Glucose 168 H 66 L* 76 10/22/24 10/23/24 10/23/24 20:35 05:23 07:17 Glucose 116 H POC Glucose 144 H 131 H 10/23/24 11:07 Glucose POC Glucose 149 H OUTPATIENT ANTIDIABETIC REGIMEN: * Jardiance 25 mg daily * Actos 15 mg BID HbA1c: 8.4% on 10/20/24 ASSESSMENT: 10/23/24: * Blood sugars have been reasonably well-controlled over past 48 hours, although patient did have a low of 66 mg/dL last evening * Will loosen Novolog parameters today * Antibiotics adjusted (cefepime changed to meropenem) 10/20/24: * 79 y/o M admitted for rectal bleed, sacral wound ulcer and discitis being treated with IV antibiotics. He has history of Type 2 diabetes managed only with oral anti-diabetic meds. * Pharmacy consulted for glycemic management yesterday. Novolog started last night with moderate stress parameters. * Patient is NPO. BSG was only slightly elevated last night. Today fasting BSG is 116 mg/gl. Holding off on starting basal insulin since BSG at goal. * Possible surgical debridement of wound ulcer. Will continue to hold basal insulin due to NPO status. PLAN FOR INPATIENT GLYCEMIC CONTROL: * Hold outpatient oral diabetes medications * Basal insulin * Lantus 10 units SC daily * Bolus insulin * NovoLog per scale ACHS or Q6hrs while NPO * Goal Range: Low 120 mg/dL - High 150 mg/dL * Correction Factor: 35 mg/dL/unit * Nutritional / Prandial insulin per carb ratio of 1 unit per 12 grams CHO consumed
--- NOTE | 2024-10-23 11:37 | Gastroenterology Progress Note ---
Date of Service October 23, 2024 Assessment & Plan (1) Anemia: Plan Patient will need eventual colonoscopy if he is agreeable after management of his sacral ulcerations which is planned for 10/24/24. Admission and Anticipated Discharge Date Admission Date: October 20, 2024 Supervising Physician Co-Signing Physician Notes I saw and examined this patient with our nurse practitioner and agree with his assessment and plan. No overt bleeding hemodynamically stable. Will plan for colonoscopy after management of his sacral ulcers. Debridement planned for tomorrow. Subjective Patient has not had any further rectal bleeding. no melena. he denies nausea, vomiting, acid reflux, dysphagia, abdominal pain. 10/23 hgb 7.0 (previously 7.9). Review of Systems Review of Systems: All systems reviewed & are unremarkable except as noted in HPI & below Physical Exam Constitutional: WD/WN, vitals as above Respiratory: normal respiratory effort, lungs clear to auscultation Cardiovascular: Rate/Rhythm: regular rate and regular rhythm Gastrointestinal (Abdomen): normal bowel sounds, soft, nontender, no hepatosplenomegaly Psychiatric: Orientation: alert and oriented x 3 Affect: euthymic affect Results & Data Results & Data Vital Signs (Past 12 Hours) Vital Signs Temp Pulse Pulse Resp BP Pulse Ox O2 Del Method 10/23/24 11:08 97.7 F 78 19 114/63 96 Nasal Cannula 10/23/24 07:53 Nasal Cannula 10/23/24 07:30 73 10/23/24 07:17 97.7 F 81 18 111/61 96 Nasal Cannula 10/23/24 03:29 97.3 F L 77 16 110/52 L 92 Nasal Cannula O2 Flow Rate 10/23/24 11:08 2 10/23/24 07:53 2 10/23/24 07:30 10/23/24 07:17 2 10/23/24 03:29 2.0 Laboratory Results Laboratory Results - last 48 hr 10/21/24 10/22/24 10/22/24 20:21 07:25 08:34 WBC 15.90 H RBC 2.98 L Hgb 7.9 L Hct 24.8 L MCV 83.2 MCH 26.5 MCHC 31.9 L RDW Std Deviation 59.2 H RDW Coeff of Arnulfo 19.8 H Plt Count 273 MPV 9.9 Immature Gran % (Auto) Neut % (Auto) Lymph % (Auto) Sawyer % (Auto) Eos % (Auto) Baso % (Auto) Neut # (Auto) Lymph # (Auto) Sawyer # (Auto) Eos # (Auto) Baso # (Auto) Immature Gran # (Auto) Polychromasia Poikilocytosis Anisocytosis Sodium 138 Potassium 3.8 Chloride 99 Carbon Dioxide 35 H Anion Gap 4 BUN 34 H Creatinine 0.80 Est Cr Clr Drug Dosing 84.8 eGFR 90.02 BUN/Creatinine Ratio 42.5 H Glucose 147 H POC Glucose 118 H 141 H Calcium 8.7 Procalcitonin 0.13 Random Vancomycin 18.6 Blood Type Antibody Screen Crossmatch 10/22/24 10/22/24 10/22/24 11:16 15:57 15:58 WBC RBC Hgb Hct MCV MCH MCHC RDW Std Deviation RDW Coeff of Arnulfo Plt Count MPV Immature Gran % (Auto) Neut % (Auto) Lymph % (Auto) Sawyer % (Auto) Eos % (Auto) Baso % (Auto) Neut # (Auto) Lymph # (Auto) Sawyer # (Auto) Eos # (Auto) Baso # (Auto) Immature Gran # (Auto) Polychromasia Poikilocytosis Anisocytosis Sodium Potassium Chloride Carbon Dioxide Anion Gap BUN Creatinine Est Cr Clr Drug Dosing eGFR BUN/Creatinine Ratio Glucose POC Glucose 168 H 66 L* 76 Calcium Procalcitonin Random Vancomycin Blood Type Antibody Screen Crossmatch 10/22/24 10/23/24 10/23/24 20:35 05:23 07:17 WBC 11.31 H RBC 2.64 L Hgb 7.0 L Hct 22.2 L MCV 84.1 MCH 26.5 MCHC 31.5 L RDW Std Deviation 60.9 H RDW Coeff of Arnulfo 20.1 H Plt Count 248 MPV 9.7 Immature Gran % (Auto) 0.7 Neut % (Auto) 85.2 Lymph % (Auto) 5.1 Sawyer % (Auto) 7.3 Eos % (Auto) 1.4 Baso % (Auto) 0.3 Neut # (Auto) 9.64 H Lymph # (Auto) 0.58 L Sawyer # (Auto) 0.82 H Eos # (Auto) 0.16 Baso # (Auto) 0.03 Immature Gran # (Auto) 0.08 Polychromasia 1+ Poikilocytosis Present Anisocytosis Present Sodium 137 Potassium 3.7 Chloride 101 Carbon Dioxide 35 H Anion Gap 1 L BUN 40 H Creatinine 0.88 Est Cr Clr Drug Dosing 77.1 eGFR 87.47 BUN/Creatinine Ratio 45.5 H Glucose 116 H POC Glucose 144 H 131 H Calcium 8.3 L Procalcitonin Random Vancomycin 21.4 H Blood Type Antibody Screen Crossmatch 10/23/24 10/23/24 09:40 11:07 WBC RBC Hgb Hct MCV MCH MCHC RDW Std Deviation RDW Coeff of Arunlfo Plt Count MPV Immature Gran % (Auto) Neut % (Auto) Lymph % (Auto) Sawyer % (Auto) Eos % (Auto) Baso % (Auto) Neut # (Auto) Lymph # (Auto) Sawyer # (Auto) Eos # (Auto) Baso # (Auto) Immature Gran # (Auto) Polychromasia Poikilocytosis Anisocytosis Sodium Potassium Chloride Carbon Dioxide Anion Gap BUN Creatinine Est Cr Clr Drug Dosing eGFR BUN/Creatinine Ratio Glucose POC Glucose 149 H Calcium Procalcitonin Random Vancomycin Blood Type A Positive Antibody Screen NEGATIVE Crossmatch See Detail Coding Level of Care Code 17766 SUB INP/OBS CARE 08/12MIN Diagnoses Anemia D62 Anemia type: other cause Other causes of anemia: acute posthemorrhagic (1) Anemia Anemia type: other cause Other causes of anemia: acute posthemorrhagic Qualified Code(s): D62 - Acute posthemorrhagic anemia
--- NOTE | 2024-10-23 15:52 | Infectious Disease Consult ---
Date of Consultation October 23, 2024 Assessment & Plan (1) Osteomyelitis of sacrum: (2) Discitis: (3) Type 2 diabetes mellitus: Plan ID Problem List: # Sacral wound SSTI with chronic osteomyelitis, sacral wound Cx + ESBL E. coli and Pseudomonas aeruginosa # Presumed discitis, s/p 6 weeks of vancomycin and ceftriaxone (need to verify EOT with outside records) Impression: Eddie Go is a 79-year-old man with a history of sacral ulcers, PUD, HTN, T2DM, recent admission 09/1209/28/24 at [facility] (CHF exacerbation, pna, and found to have presumed discitis on 6 weeks of empiric vancomycin and ceftriaxone), who presents from rehab to [facility] on 10/20/23 with rectal bleed, found to have sacral wound infection and sacral osteomyelitis, 10/21 sacral superficial wound Cx + ESBL E. coli and Pseudomonas aeruginosa. ID is consulted for sacral wound infection. The patient was previously admitted 09/1209/28/24 at [facility] with heart failure exacerbation and possible pna. At that visit, he was found to have back pain, with initial back MRI showing L1-L2 compression fracture with retropulsion; a repeat MRI showed possible progression, and thus a diagnosis of presumed discitis was made. Neurosurgery and ID both recommended to treat with antibiotics for presumed discitis he was recommended to complete a 6-week course of vancomycin and ceftriaxone via PICC. Of note, the patient was also found to have a large R inguinal hernia but declined surgery at the time. This admission, he presents with rectal bleeding. Upon admission, afebrile, WBC 8.18. On 10/22, WBC increased to 15.9. The patient was noted to have sacral wound on admission with suspected sacral wound infection. 10/20 CT A/P showed sacral decubitus ulcer with coccyx osteomyelitis, age-indeterminate compression Fx of L1-L2 with moderate retropulsion, proctitis, large R inguinal hernia; bibasilar pulmonary densities c/f atelectasis vs. pna. General surgery was consulted with plan to go to OR for debridement and bone Bx on 10/24. A superficial wound Cx of the sacrum on 10/21 was + ESBL E. coli and Pseudomonas aeruginosa. The patient was initially on ceftriaxone -> cefepime -> and changed to meropenem on 10/23. Of note, pt underwent EGD on 10/20 which was negative for bleeding, and C-scope which showed old blood in the colon. Discussion Pt with multiple sacral and back pressure wounds with central necrosis, awaiting surgical debridement. Unclear how long he has had these wounds (pt with possible cognitive impairment) but imaging suggestive of chronic osteo. Difficult to tell if any surrounding cellulitis, though suspect there is a component of SSTI contributing to his leukocytosis. Oftentimes, unable to cure chronic sacral osteomyelitis unless there is an intensive wound care and pressure offloading plan; sometimes for more severe wounds, this also involves definitive surgical plan involving plastic surgery and flap procedure, and stool/urinary management such as ostomy. Awaiting OR on 10/24 with general surgery for debridement and to see extent of wound and whether bone is exposed/how much. If there is a large wound and/or large amount of exposed bone, it may be reasonable to treat for acute infection (SSTI) but would not pursue long-term abx (6-week abx) treatment for osteomyelitis unless definitive surgical plan and wound healing plan in place. Superficial wound swab with ESBL E. coli and PsA; these may be wound colonizers but can continue meropenem for now. Would send OR Cx and path as per below. Pt with previously reported diagnosis of discitis based on back pain and imaging results no biopsy or Cx reported. Has been on empiric 6-week course of vancomycin + ceftriaxone which should be ending soon, but patient unable to recall whether he saw outpatient ID and is unsure when EOT is. Primary team in process of obtaining records. If near or at EOT, would repeat spine MRI to reevaluate discitis if at EOT especially as pt may have difficulty providing clear history or symptomatology. Suspected cognitive impairment. Recommendations: - Can continue meropenem for now for possible sacral wound SSTI - Obtain outside records regarding prior discitis - Can repeat spine MRI to reevaluate discitis if near or at EOT - Gen surg following, plan for OR on 10/23 for possible debridement of sacral wound. If going to the OR, please send bone and tissue for aerobic, anaerobic, fungal, and AFB cultures. Also plan to send bone specimen for pathology ID will continue to follow. Shweta Lee MD, [facility] Infectious Diseases [facility] Connect direct line: [phone] Consultation Information Consultation was provided via telemedicine using two-way real-time interactive telecommunication between the patient and the telemedicine provider. For the duration of the visit, the provider was performing the assessment from a different facility than the patient. This includesuse of bluetooth stethoscope forauscultationperformed by the telepresenter that the telemedicine provider can hear if described in the physical exam. Selenium Plant Operator contact information: Please call [facility] Call Center . (Phone Number For Physician Use Only) After establishing a telemedicine visit, patient was: Patient was verified with two unique identifiers, Patient/authorized rep acknowledged consent and understanding and Gave permission to continue telehealth session Time Spent with Patient: Initial => 75 min History of Present Illness Reason for Consultation: sacral wound infection Attending Physician: Ashley Jerome MD History of Present Illness Eddie Go is a 79-year-old man with a history of sacral ulcers, PUD, HTN, T2DM, recent admission 09/1209/28/24 at [facility] (CHF exacerbation, pna, and found to have presumed discitis on 6 weeks of empiric vancomycin and ceftriaxone), who presents from rehab to [facility] on 10/20/23 with rectal bleed, found to have sacral wound infection and sacral osteomyelitis, / sacral superficial wound Cx + ESBL E. coli and Pseudomonas aeruginosa. ID is consulted for sacral wound infection. The patient was previously admitted 09/1209/28/24 at [facility] with heart failure exacerbation and possible pna. At that visit, he was found to have back pain, with initial back MRI showing L1-L2 compression fracture with retropulsion; a repeat MRI showed possible progression, and thus a diagnosis of presumed discitis was made. Neurosurgery and ID both recommended to treat with antibiotics for presumed discitis he was recommended to complete a 6-week course of vancomycin and ceftriaxone via PICC. Of note, the patient was also found to have a large R inguinal hernia but declined surgery at the time. This admission, he presents with rectal bleeding. Upon admission, afebrile, WBC 8.18. On 10/22, WBC increased to 15.9. The patient was noted to have sacral wound on admission with suspected sacral wound infection. 10/20 CT A/P showed sacral decubitus ulcer with coccyx osteomyelitis, age-indeterminate compression Fx of L1-L2 with moderate retropulsion, proctitis, large R inguinal hernia; bibasilar pulmonary densities c/f atelectasis vs. pna. General surgery was consulted with plan to go to OR for debridement and bone Bx on 10/24. A superficial wound Cx of t he sacrum on 10/21 was + ESBL E. coli and Pseudomonas aeruginosa. The patient was initially on ceftriaxone -> cefepime -> and changed to meropenem on 10/23. Of note, pt underwent EGD on 10/20 which was negative for bleeding, and C-scope which showed old blood in the colon. At the time of evaluation, the patient has poor recollection of recent events - ?cognitive impairment as suspected by nursing. The patient reports that he has pain in his back currently and that its been hard to walk. He does not recall when his sacral wounds appeared and said it may be a few months ago. Discussed with hospitalist Dr. Jerome, still in the process of obtaining records regarding his discitis. Allergies Allergy/AdvReac Type Severity Reaction Status Date / Time No Known Allergies Allergy Verified 10/19/24 22:38 Home Medications Medication Instructions Recorded Confirmed Type acetaminophen 325 mg tablet 650 mg PO Q4 PRN PAIN 1-3 10/19/24 10/19/24 History acetaminophen 500 mg tablet 500 mg PO Q4 PRN TEMP > OR = 100.5 10/19/24 10/19/24 History atorvastatin 10 mg tablet 10 mg PO HS 10/19/24 10/19/24 History calcium carbonate 500 mg PO Q8 PRN Indigestion 10/19/24 10/19/24 History ceftriaxone 2 gram solution for 2,000 mg IV .QDL 10/19/24 10/19/24 History injection docusate sodium 100 mg capsule 100 mg PO .Q12 HR PRN Constipation 10/19/24 10/19/24 History (Colace) empagliflozin 25 mg tablet 25 mg PO QAM 10/19/24 10/19/24 History (Jardiance) ipratropium 0.5 mg-albuterol 3 mg 3 ml inhalation TID 10/19/24 10/19/24 History (2.5 mg base)/3 mL nebulization soln lidocaine 4 % topical patch 1 patch topical DAILY 10/19/24 10/19/24 History losartan 25 mg tablet 25 mg PO DAILY 10/19/24 10/19/24 History melatonin 3 mg tablet 6 mg PO HS 10/19/24 10/19/24 History naloxone 4 mg/actuation nasal spray 4 mg intranasal UD PRN Opioid 10/19/24 10/19/24 History Overdose nicotine 14 mg/24 hr daily 1 patch transdermal DAILY 10/19/24 10/19/24 History transdermal patch ondansetron 4 mg disintegrating 4 mg PO Q6H PRN NAUSEA OR VOMITING 10/19/24 10/19/24 History tablet oxycodone 20 mg tablet,crush 20 mg PO Q12H 10/19/24 10/19/24 History resistant,extended release 12 hr oxycodone 5 mg tablet 5 mg PO Q4 PRN PAIN 4-6 10/19/24 10/19/24 History pantoprazole 40 mg tablet,delayed 40 mg PO HS 10/19/24 10/19/24 History release pioglitazone 15 mg tablet (Actos) 15 mg PO BIDM 10/19/24 10/19/24 History polyethylene glycol 3350 17 17 g PO QDL PRN Constipation 10/19/24 10/19/24 History gram/dose oral powder (Miralax) sennosides 8.6 mg-docusate sodium 1 tab-cap PO QDL PRN Constipation 10/19/24 10/19/24 History 50 mg tablet (Senokot-S) vancomycin 1.25 gram intravenous 1,250 mg IV QDL 10/19/24 10/19/24 History solution bumetanide 1 mg tablet 1 mg PO BID 10/20/24 History oxycodone 5 mg tablet 10 mg PO Q4H PRN PAIN 7-10 10/20/24 10/20/24 History Patient History Social History Smoking Status: Former smoker Hx Alcohol Use: Yes Alcohol type: beer Hx Substance Use: No Preferred Language: Spanish Communication Ability: Effective Diabetes Clinical Manager Required: No Beliefs That Will Affect Care: None Current Living Situation: Rehab Other Information That Helps Us Care for You: No Feels Safe at Home: Yes Safety Concerns: Feels Safe At This Time Assistive Devices: Denture - Upper, Denture - Lower, Glasses, Hospital Bed, Oxygen - Continuous and Walker Physical Exam Physical Exam: Exam obtained with aid of in-person telepresenter. General: Well-appearing, no acute distress HEENT: Conjunctivae non-injected, sclerae anicteric, MMM, OP clear. Resp: Respirations nonlabored. Abd: Soft, nontender, nondistended. Normal bowel sounds throughout. No masses or organomegaly. Back: Sacrum, mid-back, and upper R back with large pressure wounds and central necrosis, dressings in place. No tenderness to palpation along spine Ext: No joint warmth or effusions noted. RUE PICC c/d/i Skin: Wounds on back as above Neuro: Alert & interactive. Grossly non-focal. Poor memory Psych: Pleasant, appropriate. Results & Data Vital Signs (Past 12 Hours) Vital Signs Temp Pulse Pulse Resp BP BP Pulse Ox 10/23/24 15:15 36.3 C L 82 18 111/60 95 10/23/24 14:15 37 C 88 20 122/41 L 95 10/23/24 13:45 36.9 C 80 18 106/63 98 10/23/24 13:30 36.6 C 81 18 100/57 L 98 10/23/24 13:10 36.9 C 88 17 98/56 L 95 10/23/24 11:08 36.5 C 78 19 114/63 96 10/23/24 07:53 10/23/24 07:30 73 10/23/24 07:17 36.5 C 81 18 111/61 96 O2 Del Method O2 Flow Rate 10/23/24 15:15 2 10/23/24 14:15 2 10/23/24 13:45 2 10/23/24 13:30 2 10/23/24 13:10 2 10/23/24 11:08 Nasal Cannula 2 10/23/24 07:53 Nasal Cannula 2 10/23/24 07:30 10/23/24 07:17 Nasal Cannula 2 Diagnostic Findings Diagnostics: 10/20 CT A/P Proctitis with increased arterial vascularity along the wall of the inflamed rectum. This may represent the source of bleeding. Large right inguinal hernia containing a significant portion of the nondistended ascending colon. 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 Age-indeterminate compression fractures of L1 and L2 vertebral bodies with moderate retropulsion. Small pleural fluids with subjacent bibasilar pulmonary densities that may represent atelectasis and pneumonia. Micro Data: 10/21 Sacral wound Cx: ESBL E. coli (S-clyde/erta/cipro/levo/Bactrim), Pseudomonas aeruginosa (solomon-S) Antibiotic Summary: meropenem (10/23 present) prior cefepime (10/22) ceftriaxone (10/20 10/21)
[2024-10-23 18:06] LABS: Hematocrit (blood only) 26.5 % (42.0-52.0); Hemoglobin 8.6 g/dl (14.0-18.0)
[2024-10-24] MEDS ORDERED: Nursing to Pharmacy Communication SCH ×2 (06:00→16:00)
[2024-10-24] MEDS ORDERED: PROPOFOL IV EMULSION 10 MG/ML 20 ML VIAL IV ONE (06:49)
[2024-10-24] MEDS ORDERED: ROCURONIUM BROMIDE 10 MG/ML 5 ML VIAL IV ONE (06:49)
[2024-10-24] MEDS ORDERED: ONDANSETRON INJ 2 MG/ML 2 ML VIAL ONE (06:49)
[2024-10-24] MEDS ORDERED: LIDOCAINE 2% 2 ML VIAL/AMP(20MG/ML) INFIL ONE (06:49)
[2024-10-24] MEDS ORDERED: fentaNYL citrate PF 100 MCG/2 ML VIAL ONE ×2 (06:49→08:29)
[2024-10-24] MEDS ORDERED: ACETAMINOPHEN 1000 MG/100 ML IV IV ONE (06:54)
[2024-10-24 06:57] LABS: Hematocrit (blood only) 27.8 % (42.0-52.0); Hemoglobin 8.9 g/dl (14.0-18.0); Mean Corpuscular Hemoglobin 26.9 pg (25.0-34.0); Mean Platelet Volume 9.7 fL (9.4-12.4); Platelet Count 287 K/uL (130-400); RDW Coefficient of Variation 19.2 % (11.5-14.5); RDW Standard Deviation 58.1 fL (36.4-46.3); Red Blood Count 3.31 M/uL (4.70-6.10); White Blood Count 7.51 K/ul (4.8-10.8)
--- NOTE | 2024-10-24 06:58 | Anesthesiology Consultation ---
Date of Service October 24, 2024 Assessment & Plan Chart Review Chart Review: Acceptable Risk for Surgery and Patient NOT seen in Pre Admission Testing Consults Requested none ASA ASA3 Proposed Anesthesia Anesthesia Type: General Risk / Benefits Reviewed With: PT / POA / Parent / Guardian, Accepts Plan and Informed Consent Obtained Additional Comments: DNR/DNI lifted for procedure. History Surgery Operation Date: 10/20/24 16:55 Proposed Procedures p Esophagogastroduodenoscopy Payal - Dagoberto Moe MD Operation Date: 10/24/24 07:15 Proposed Procedures p Sacral Debridement and Bone Biopsy - Ariel Mcclellan DO Height/Weight Height: 6 ft 3 in Weight: 84.1 kg Allergies Allergy/AdvReac Type Severity Reaction Status Date / Time No Known Allergies Allergy Verified 10/24/24 06:51 Medications Home Medications Medication Instructions Recorded Confirmed Last Taken acetaminophen 325 mg tablet 650 mg PO Q4 PRN PAIN 1-3 10/19/24 10/19/24 Unknown acetaminophen 500 mg tablet 500 mg PO Q4 PRN TEMP > OR = 100.5 10/19/24 10/19/24 Unknown atorvastatin 10 mg tablet 10 mg PO HS 10/19/24 10/19/24 Unknown calcium carbonate 500 mg PO Q8 PRN Indigestion 10/19/24 10/19/24 Unknown ceftriaxone 2 gram solution for 2,000 mg IV .QDL 10/19/24 10/19/24 Unknown injection docusate sodium 100 mg capsule 100 mg PO .Q12 HR PRN Constipation 10/19/24 Unknown (Colace) empagliflozin 25 mg tablet 25 mg PO QAM 10/19/24 10/19/24 Unknown (Jardiance) ipratropium 0.5 mg-albuterol 3 mg 3 ml inhalation TID 10/19/24 10/19/24 Unknown (2.5 mg base)/3 mL nebulization soln lidocaine 4 % topical patch 1 patch topical DAILY 10/19/24 10/19/24 Unknown losartan 25 mg tablet 25 mg PO DAILY 10/19/24 10/19/24 Unknown melatonin 3 mg tablet 6 mg PO HS 10/19/24 10/19/24 Unknown naloxone 4 mg/actuation nasal spray 4 mg intranasal UD PRN Opioid 10/19/24 10/19/24 Unknown Overdose nicotine 14 mg/24 hr daily 1 patch transdermal DAILY 10/19/24 10/19/24 Unknown transdermal patch ondansetron 4 mg disintegrating 4 mg PO Q6H PRN NAUSEA OR VOMITING 10/19/24 10/19/24 Unknown tablet oxycodone 20 mg tablet,crush 20 mg PO Q12H 10/19/24 10/19/24 Unknown resistant,extended release 12 hr oxycodone 5 mg tablet 5 mg PO Q4 PRN PAIN 4-6 10/19/24 10/19/24 Unknown pantoprazole 40 mg tablet,delayed 40 mg PO HS 10/19/24 10/19/24 Unknown release pioglitazone 15 mg tablet (Actos) 15 mg PO BIDM 10/19/24 10/19/24 Unknown polyethylene glycol 3350 17 17 g PO QDL PRN Constipation 10/19/24 10/19/24 Unknown gram/dose oral powder (Miralax) sennosides 8.6 mg-docusate sodium 1 tab-cap PO QDL PRN Constipation 10/19/24 10/19/24 Unknown 50 mg tablet (Senokot-S) vancomycin 1.25 gram intravenous 1,250 mg IV QDL 10/19/24 10/19/24 Unknown solution bumetanide 1 mg tablet 1 mg PO BID 10/20/24 Unknown oxycodone 5 mg tablet 10 mg PO Q4H PRN PAIN 7-10 10/20/24 10/20/24 Unknown Active Medications Generic Name Dose Route Start Last Admin Trade Name Freq PRN Reason Stop Dose Admin Acetaminophen 650 mg 10/20/24 01:46 10/23/24 01:36 Acetaminophen 325 Mg Tab PO 11/19/24 01:45 650 mg Q4H PRN Administration Pain or Fever Atorvastatin Calcium 10 mg 10/20/24 21:00 10/22/24 21:03 Atorvastatin 10 Mg Tab PO 11/19/24 20:59 10 mg HS ASHLEY Administration Heparin Sodium (Beef Lung) 5 ml 10/21/24 11:22 10/22/24 10:20 Heparin 10 Unit/Ml 5 Ml Flush FLUSH 11/20/24 11:21 5 ml PRN PRN Administration Flush Pantoprazole Sodium 40 mg in 10 mls @ 5 mls/min 10/20/24 09:00 10/23/24 20:54 Protonix IV 11/19/24 08:59 5 mls/min BID ASHLEY Administration Vancomycin HCl 750 mg/ Sodium 265 mls @ 200 mls/hr 10/22/24 22:00 10/23/24 23:10 Chloride IV 12/03/24 21:59 Infused Q12H ASHLEY Infusion Meropenem 500 mg/ Syringe 10 mls @ 2 mls/min 10/23/24 09:00 10/24/24 02:57 IV 12/04/24 08:59 2 mls/min Q6H ASHLEY Administration Protocol Lactated Ringer's 1,000 mls @ 15 mls/hr 10/24/24 07:00 10/24/24 07:04 Lr IV 10/25/24 06:59 15 mls/hr .Q24H ASHLEY Administration Melatonin 6 mg 10/20/24 21:00 10/23/24 20:30 Melatonin 3 Mg Tab PO 11/19/24 20:59 6 mg HS ASHLEY Administration Miscellaneous 1 each 10/20/24 09:00 10/23/24 08:11 Remove Nicoderm Patch N/A 11/19/24 08:59 Not Given QAM ASHLEY Oxycodone HCl 5 mg 10/20/24 01:42 10/21/24 04:25 Oxycodone Hcl Ir 5 Mg Tab (Immediate Release) PO 11/03/24 01:41 5 mg Q4 PRN Administration PAIN 4-6 Oxycodone HCl 10 mg 10/20/24 01:42 10/22/24 05:07 Oxycodone Hcl Ir 5 Mg Tab (Immediate Release) PO 11/03/24 01:41 10 mg Q4H PRN Administration PAIN 7-10 Oxycodone HCl 20 mg 10/20/24 09:00 10/23/24 20:30 Oxycodone Hcl 20 Mg Tabcr (Oxycontin) PO 11/03/24 08:59 20 mg Q12H ASHLEY Administration NPO Date Last Intake of Fluids: 10/23/24 Time Last Intake of Fluids: 23:59 Date Last Intake of Solids: 10/23/24 Time Last Intake of Solids: 23:59 Exercise / Class Metabolic Activity III < 4 Walking/Shop/Light housework Past Anesthesia History No Hx of Anesthesia Complications and No Family Hx of Anesthesia Complications History of PONV No Hx of PONV and No Hx of Motion Sickness Social History Smoking Status: Former smoker Hx Alcohol Use: Yes Alcohol type: beer alcohol intake frequency: 3 or more drinks per day Hx Substance Use: No substance use type: does not use Review of Systems ROS Unobtainable: All systems reviewed & are unremarkable except as noted in HPI & below Physical Exam Vital Signs Last Vital Signs Temp 36.6 C 10/24/24 06:46 Pulse 87 10/24/24 06:46 Resp 20 10/24/24 06:46 BP 126/67 10/24/24 06:46 Pulse Ox 93 10/24/24 06:46 O2 Del Method Nasal Cannula 10/24/24 06:46 O2 Flow Rate 2 10/24/24 06:46 ENMT Mouth: + edentulous; no TMJ abnormality Thyromental Distance: > or= 3.5 Finger Breadths Mallampati Class: II Neck normal visual inspection and trachea midline; neck extension not limited Respiratory normal respiratory effort Auscultation: lungs clear to auscultation bilaterally Cardiovascular Rate/Rhythm: regular rate and regular rhythm Heart Sounds: no murmur Musculoskeletal Spine: normal cervical ROM Extremities: full ROM of extremities Neurologic moves all extremities Psychiatric Orientation: alert and oriented x 3 Testing Laboratory Results PT 12.1 Seconds (9.0-12.0) H 10/19/24 21:55 INR 1.1 (0.9-1.1) 10/19/24 21:55 APTT 28 Seconds (21-31) 10/19/24 21:55 Hemoglobin A1c 8.4 % (4.5-5.6) H 10/20/24 06:39 Blood Type A Positive 10/23/24 09:40 Antibody Screen NEGATIVE 10/23/24 09:40 10/21/24 10:40 Gram Stain - Final Sacrum Aerobic and Anaerobic Culture - Preliminary Escherichia coli ESBL Pseudomonas aeruginosa Bacteroides ovatus group 10/24/24 10/23/24 06:01 20:08 POC Glucose 111 H 206 H Electrocardiogram Date: 10/24/24 Findings: + NSR @ 1st degree AVB
[2024-10-24] MEDS: LACTATED RINGER'S 1,000 ML IV SCH (07:04)
[2024-10-24] MEDS ORDERED: ATROPINE SULFATE 0.1 MG/ML 10ML SYR IV PRN (07:16)
[2024-10-24] MEDS ORDERED: ePHEDrine sulfate 50 MG/ML AMP IV PRN (07:16)
[2024-10-24] MEDS ORDERED: HYDROmorphone INJ 1 MG/ML SYRINGE IV PRN (07:16)
[2024-10-24] MEDS ORDERED: ONDANSETRON INJ 2 MG/ML 2 ML VIAL IV PRN (07:16)
--- NOTE | 2024-10-24 07:17 | History & Physical Bridge Note ---
Date of Service October 24, 2024 History & Physical Bridge Note I have examined the patient, reviewed the History & Physical and in the interval since the performance of the History & Physical I have noted the following changes of clinical significance: no changes noted
[2024-10-24 07:27] LABS: BUN Creatinine Ratio 42.3 (10-20); Calcium 8.9 mg/dl (8.6-10.3); Creatinine Clr Calc Pharmacy 91.3 ml/min
[2024-10-24] MEDS ORDERED: ePHEDrine sulfate 50 MG/5 ML SYR ONE (08:33)
[2024-10-24] MEDS ORDERED: PHENYLEPHRINE 100MCG/ML 5ML SYR ONE (08:33)
[2024-10-24] MEDS ORDERED: SUGAMMADEX SODIUM 200 MG/2 ML VIAL IV ONE (08:40)
--- NOTE | 2024-10-24 09:00 | Operative Report ---
PG Post Operative Report Pre & Post Diagnosis Operation Date: 10/24/24 07:15 Pre-Op Diagnosis: Osteomyelitis of Sacrum Post-Op Diagnosis: Osteomyelitis of Sacrum, Sacral Decubitus Ulcers I identified the patient and participated in the time-out.: Yes Procedure Operation Date: 10/24/24 07:15 Actual Procedures p Sacral Debridement and Bone Biopsy(Not Applicable) - Ariel Mcclellan DO Surgeon Ariel Mcclellan DO Indexer cari Dean Estimated Blood Loss 50 Findings Consistent with Post-Op Diagnosis Specimens 1. debrided ulcer tissue 2. sacral bone biopsy Description of Procedure After informed consent was obtained the patient was taken the operating room and placed in supine position. After successful intubation the patient was rolled into a prone position. The entire back down to the upper thighs was sterilely prepped and draped with a Betadine solution. We began by using a 10 blade scalpel to cut down through the periphery of each back wound. These were all irregularly shaped. They all had black central eschar. We used cautery to remove all the overlying tissue and sent 3 pieces of soft tissue as specimen. Each wound was carried down through skin and soft tissue down to bone. The total square cm of debridement was over 100 square cm. We controlled all bleeding using cautery. I used a rongeur to obtain a bone biopsy of the sacrum. This specimen was sent separately. We controlled all bleeding using a cautery. A final irrigation was performed. 1 inch iodoform packing was placed, covered by gauze/tape/abd's. He was then rolled back into a supine position, extubated and transferred to recovery in stable condition. My Physician Indexer was present for the entire procedure and was instrumental in helping with exposure,debridement, and dressing placement. I attest to the content of the Intraoperative Record and any orders documented therein. Any exceptions are noted below.
[2024-10-24] MEDS: fentaNYL citrate PF 100 MCG/2 ML VIAL IV PRN (09:20)
--- NOTE | 2024-10-24 10:20 | Anesthesiology Progress Note ---
Date of Service October 24, 2024 Anesthesia Post Procedure Vital Signs Vital Signs: Temp Pulse Pulse Resp BP BP Pulse Ox 10/24/24 10:10 36.3 C L 84 16 94/45 L 93 10/24/24 10:00 80 12 107/58 L 93 10/24/24 09:50 80 12 114/53 L 93 10/24/24 09:40 76 12 104/60 94 10/24/24 09:30 77 14 119/58 L 97 10/24/24 09:20 79 12 103/47 L 94 10/24/24 09:10 79 16 104/57 L 98 10/24/24 08:59 36 C L 80 12 104/48 L 97 10/24/24 06:55 84 20 93 10/24/24 06:46 36.6 C 87 20 126/67 93 10/24/24 02:25 36.6 C 83 18 119/73 100 10/23/24 22:40 36.6 C 89 18 119/52 L 99 10/23/24 22:00 91 H 10/23/24 20:00 10/23/24 19:27 36.5 C 89 18 122/66 94 10/23/24 16:01 36.5 C 79 18 119/63 95 10/23/24 15:15 36.3 C L 82 18 111/60 95 10/23/24 14:15 37 C 88 20 122/41 L 95 10/23/24 14:00 90 10/23/24 13:45 36.9 C 80 18 106/63 98 10/23/24 13:30 36.6 C 81 18 100/57 L 98 10/23/24 13:10 36.9 C 88 17 98/56 L 95 10/23/24 11:08 36.5 C 78 19 114/63 96 O2 Del Method O2 Flow Rate 10/24/24 10:10 Nasal Cannula 2 10/24/24 10:00 Nasal Cannula 2 10/24/24 09:50 Nasal Cannula 2 10/24/24 09:40 Nasal Cannula 2 10/24/24 09:30 Nasal Cannula 2 10/24/24 09:20 Nasal Cannula 2 10/24/24 09:10 Oxymask 3 10/24/24 08:59 Oxymask 6 10/24/24 06:55 Nasal Cannula 2 10/24/24 06:46 Nasal Cannula 2 10/24/24 02:25 Nasal Cannula 10/23/24 22:40 Nasal Cannula 2 10/23/24 22:00 10/23/24 20:00 Nasal Cannula 2 10/23/24 19:27 Nasal Cannula 2 10/23/24 16:01 2 10/23/24 15:15 2 10/23/24 14:15 2 10/23/24 14:00 10/23/24 13:45 2 10/23/24 13:30 2 10/23/24 13:10 2 10/23/24 11:08 Nasal Cannula 2 Pain Intensity Buttock: Pain Intensity: 4 Back: Pain Intensity: 4 Transfer of Care Handoff Completed per policy Notes Mental Status: alert / awake / arousable Patient Amnestic to Procedure: Yes Nausea / Vomiting: adequately controlled Pain: adequately controlled Airway Patency, RR, SpO2: stable & adequate BP & HR: stable & adequate Hydration State: stable & adequate Anesthetic Complications: no major complications apparent and Pt Satisfied with anesthetic care
[2024-10-24] MEDS: LANTUS PER UNIT CHARGE SC SCH (10:33)
[2024-10-24] MEDS: INSULIN ASPART PER UNIT CHARGE SC SCH ×2 (12:31→16:52)
--- NOTE | 2024-10-24 12:55 | Hospitalist Progress Note ---
Date of Service October 24, 2024 Assessment & Plan (1) GI bleed: (2) Sacral wound: (3) Discitis: (4) Hyponatremia: Plan 79-year-old male PMHx sacral ulcers, GERD, PUD w/ h/o UGI, HTN, HLD, and T2DM presenting for rectal bleed. Had recent stay at [facility] with CHF, PNA and discitis. as having ongoing back pain, total duration of 6 months; found to have L1-L2 compression fracture with retropulsion at that time. Repeat MRI performed with persistent changes and possibility of mild progression, neurosurgery and infectious disease recommended 6 weeks ceftriaxone and vancomycin for possibility of discitis. Does also have history of large right inguinal hernia but had refused surgical consultation at . From [facility] he was discharged to [facility] on 09/28. On 10/16 he left [facility] for home, but presented back on 10/18. On 10/19 he was transferred from [facility] to [place] for rectal bleeding with hgb of 7. #Sacral ulcer - present on admission General surgery consulted- s/p Sacral Debridement and Bone Bx with Dr. Mcclellan 10/24 CTA A/P: osteomyelitis of coccyx Wound culture: + for E coli ESBL and Pseudomonas -- abx switched to meropenem 10/23, ID consulted Pain control: prn tylenol and oxycodone Would care consulted- continue wound care qshift, low air loss bed ordered #GI bleed CTA of abdomen & pelvis: proctitis. GI consulted - s/p EGD without cause of bleed, started colo but not fully prepped, will require colonoscopy at some point when stable. inpatient vs outpatient. s/p 1 unit PRBCs 10/20. Hgb up to 8.9 after transfused additional 1 unit PRBC 10/23 Change IV PPI to po #Discitis Per d/c summary "Noted to have probable osteomyelitis and discitis and had 2 biopsies both which yield was negative. Due to high clinical suspicion, it was recommended that we teat him for 6 weeks with IV antibiotics by neurosurgery. ID was involved and infectious disease recommends 6 weeks of IV antibiotics with vancomycin and Rocephin" [6 week end date of 11/03] ID following - continue vanco and meropenem. Repeat MRI T and L-spine ordered today . PT/OT consulted #T2DM Home regimen: metformin, pioglitazone, Jardiance - HELD. A1c 8.4% SSI with target BSG range 110-140mg/dL, CF 30, carb ratio 10 Pharm glycemic management consult #HFpEF H/o HFpEF per report, PH d/c summary states "noted to have right ventricular failure. he was started on lasix and will need a right heart cath as an outpatient" However no lasix dose listed on D/c summary (but does have jardiance) - will obtain echo and BMP Daily weights + strict I+Os, SCDs, TEDs CXR: mild cardiomegaly w/ increase in interstitial pulmonary edema. moderate right & small left pleural effusions --> rec interval follow up #COPD- No O2 at baseline, presumed COPD per last hospital course; continue bronchodilator therapy #HTN- Losartan on hold secondary to hypotension #HLD- Atorvastatin #R inguinal hernia- Identified on prior CTAP with some loops of bowel present in the hernia, patient is at risk for developing incarcerated bowel but had refused surgical consult for such Dispo: continued inpatient stay VTE prophylaxis: SCD, if hgb remains stable will initiate chemical prophylaxis tomorrow Partner updated at bedside 10/23 & 10/[address] Mcclellan and Dr. Johnson Admission and Anticipated Discharge Date Admission Date: October 20, 2024 Supervising Physician Co-Signing Physician Notes PA Supervision Note: I did not personally see or examine the patient today, but I verified all bruce points of BRENT Prince's assessment and plan with the following exceptions/additions: I discussed his care also with ID and Surgery. Plan for possible wound vac placement, ongoing IV abx and treatment for sacral OM and discitis of spine Subjective Patient seen sitting up in bed eating lunch, partner present at bedside Eddie reports mild pain in his back - stressed the importance of frequent position changes and OOB to help with wound healing, but patient stating he preferred to stay in bed and rest today educated on use of incentive spirometer in attempt to wean oxygen. does not think he has seen the GI team today No BM today Review of Systems Review of Systems: All systems reviewed & are unremarkable except as noted in Subjective Physical Exam Physical Exam: General: NAD, VS as above Resp: normal respiratory effort, diminished in bases, on 2L CV: RRR, no murmur, Abd: normal bowel sounds, non tender, no hepatosplenomegaly extremities: No LE pitting edema Neuro: A&O x3, Results & Data Results & Data Vital Signs (Past 12 Hours) Vital Signs Temp Pulse Resp BP Pulse Ox O2 Del Method O2 Flow Rate 10/24/24 11:56 97.5 F L 87 19 102/54 L 94 Nasal Cannula 2 10/24/24 11:33 Nasal Cannula 2 10/24/24 10:55 97.3 F L 88 19 102/50 L 91 Nasal Cannula 2 10/24/24 10:30 97.3 F L 51 L 19 109/55 L 91 Nasal Cannula 2 10/24/24 10:10 97.3 F L 84 16 94/45 L 93 Nasal Cannula 2 10/24/24 10:00 80 12 107/58 L 93 Nasal Cannula 2 10/24/24 09:50 80 12 114/53 L 93 Nasal Cannula 2 10/24/24 09:40 76 12 104/60 94 Nasal Cannula 2 10/24/24 09:30 77 14 119/58 L 97 Nasal Cannula 2 10/24/24 09:20 79 12 103/47 L 94 Nasal Cannula 2 10/24/24 09:10 79 16 104/57 L 98 Oxymask 3 10/24/24 08:59 96.8 F L 80 12 104/48 L 97 Oxymask 6 10/24/24 06:55 84 20 93 Nasal Cannula 2 10/24/24 06:46 97.9 F 87 20 126/67 93 Nasal Cannula 2 10/24/24 02:25 97.9 F 83 18 119/73 100 Nasal Cannula Laboratory Results cbc and chemistry reviewed PG Care Time/CCT Total # of Minutes Spent Total Time Spent with Patient: Total time spent is greater than 50% in coordination of care (as documented) at patient's floor/unit and/or counseling patient: Coding Level of Care Code 37824 SUB INP/OBS CARE 3/50MIN Diagnoses GI bleed K92.2 GI bleed type/associated pathology: unspecified gastrointestinal hemorrhage type Sacral wound S31.000A Encounter type: initial encounter Discitis M46.40 Hyponatremia E87.1 (1) GI bleed GI bleed type/associated pathology: unspecified gastrointestinal hemorrhage type Qualified Code(s): K92.2 - Gastrointestinal hemorrhage, unspecified (2) Sacral wound Encounter type: initial encounter Qualified Code(s): S31.000A - Unspecified open wound of lower back and pelvis without penetration into retroperitoneum, initial encounter
--- NOTE | 2024-10-24 17:02 | XCELERA ---
[id number]
[2024-10-24] MEDS ORDERED: Heparin IV Adult Wt-Based Low-Dose *NO* INITIAL Bolus Protocol IV SCH (17:11)
--- NOTE | 2024-10-24 17:36 | Communication Note ---
Date of Service: October 24, 2024 Echo ordered to eval for CHF. Notified by Dr. Paulson that echo concerning for Right atrial mass, possible thrombus. Started on heparin drip with no bolus and cardiology consulted. Pt notified of these results, no known hx of afib, no unilateral extremity swelling or pain, negative stephan sign bilaterally.
--- NOTE | 2024-10-24 18:09 | Infectious Disease Progress Nt ---
Date of Service October 24, 2024 Assessment & Plan (1) Osteomyelitis of sacrum: (2) Discitis: (3) Type 2 diabetes mellitus: Plan ID Problem List: # Sacral wound SSTI with chronic osteomyelitis, sacral wound Cx + ESBL E. 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 vegetations Impression: Eddie Go is a 79-year-old man with a history of sacral ulcers, PUD, HTN, T2DM, recent admission 09/1209/28/24 at [facility] (CHF exacerbation, pna, and found to have presumed discitis on 6 weeks of empiric vancomycin and ceftriaxone), who presents from rehab to [facility] on 10/20/23 with rectal bleed, found to have sacral wound infection and sacral osteomyelitis, 10/21 sacral superficial wound Cx + ESBL E. coli and Pseudomonas aeruginosa. ID is consulted for sacral wound infection. The patient was previously admitted 09/1209/28/24 at [facility] with heart failure exacerbation and possible pna. At that visit, he was found to have back pain, with initial back MRI showing L1-L2 compression fracture with retropulsion; a repeat MRI showed possible progression, and thus a diagnosis of presumed discitis was made. Neurosurgery and ID both recommended to treat with antibiotics for presumed discitis he was recommended to complete a 6-week course of vancomycin and ceftriaxone via PICC. Of note, the patient was also found to have a large R inguinal hernia but declined surgery at the time. This admission, he presents with rectal bleeding. Upon admission, afebrile, WBC 8.18. On 10/22, WBC increased to 15.9. The patient was noted to have sacral wound on admission with suspected sacral wound infection. 10/20 CT A/P showed sacral decubitus ulcer with coccyx osteomyelitis, age-indeterminate compression Fx of L1-L2 with moderate retropulsion, proctitis, large R inguinal hernia; bibasilar pulmonary densities c/f atelectasis vs. pna. General surgery was consulted with plan to go to OR for debridement and bone Bx on 10/24. A superficial wound Cx of the sacrum on 10/21 was + ESBL E. coli and Pseudomonas aeruginosa. The patient was initially on ceftriaxone -> cefepime -> and changed to meropenem on 10/23. Of note, pt underwent EGD on 10/20 which was negative for bleeding, and C-scope which showed old blood in the colon. Discussion Pt with previously reported diagnosis of discitis based on back pain and imaging results. Partial OSH records from [facility] received. Note from 09/26/24 stating that patients imaging c/f vertebral discitis/osteomyelitis; 2 biopsies were negative though the biopsy yield is low. He was seen by ID and treated empirically with a 6-week course of vancomycin and ceftriaxone (EOT 11/03/24). Awaiting spine MRI to reevaluate discitis if at EOT. Notably, OSH records also mentioned that the patient had RV failure. 10/24 TTE showing long (5.3 x 0.8 cm) hypermobile mass in RA partially prolapses across TR. Appearance suggestive of thrombus, less likely vegetation. OSH records did not report TTE results. It is unclear whether this is a new finding. Although the TTE appearance states that the finding is c/w thrombus in appearance, it is concerning that the OSH CHF symptoms were concomitant with a new dx of discitis/osteomyelitis, and thus is concerning for infective endocarditis. Agree with cardiology, would favor BERNABE if able, and consider cardiac surgery evaluation. If the findings were indeed present at the OSH, then the possible endocarditis would have already been treated with the 6 weeks of IV abx. Pt with multiple sacral and back pressure wounds with central necrosis. S/p OR 10/24 for I&D 3 back/sacral wounds were debrided down to bone with >100 sq cm of tissue debrided. Oftentimes, unable to cure chronic sacral osteomyelitis unless there is an intensive wound care and pressure offloading plan; sometimes for more severe wounds, this also involves definitive surgical plan involving plastic surgery and flap procedure, and stool/urinary management such as ostomy. On 10/24, discussed with Dr. Mcclellan feels that with appropriate nutrition, of floading, and wound vac, that the wounds may have a chance at healing prior to his recent admission and rehab stay, the patient was ambulating and functioning well. Given that this is the pts first time with a sacral wound, may be reasonable to trial a course of IV abx for treatment. If he is still unable to heal the wounds after abx, then will need to reassess treatment options and possible GOC. Superficial wound swab with ESBL E. coli, PsA, Bacteroides ovatus; these may be wound colonizers but can continue meropenem for now. Will follow OR Cx. Currently on vancomycin (for empiric vertebral discitis/osteomyelitis and possible IE treatment) and meropenem (for sacral SSTI, also encompasses broad empiric discitis/osteomyelitis treatment). Will have received a 6-week course of IV abx by 11/03/24 for empiric vertebral discitis/osteomyelitis however if also treating for sacral osteomyelitis, and if uncertainty about duration of cardiac thrombus vs. vegetation, may consider extending course for another 6 weeks. Recommendations: - Continue meropenem for now - Continue IV vancomycin - F/u repeat spine MRI to reevaluate discitis/osteomyelitis - Appreciate cardiology following, agree with BERNABE for possible RA thrombus vs. vegetation. Consider cardiac surgery evaluation - S/p I&D on 10/24 will follow bone and tissue Cx - Ensure a multi-modal approach to healing of sacral/back pressure wounds, including wound offloading, possible wound vac, and close outpatient follow-up with surgery and wound care ID will continue to follow. Shweta Lee MD, M[facility] Infectious Diseases [facility]/ID Connect ID Connect direct line: [phone] Admission and Anticipated Discharge Date Admission Date: October 20, 2024 Subjective This patient recommendation is based on a telemedicine consult request which was completed asynchronously through chart review and information provided by the primary physician. The patient was not seen or examined today. The evaluation is consultative in nature and all patient care and treatment decisions can either be accepted or rejected by the patient's primary hospital-based treating physician using their own independent medical judgment for their patient. Time Spent Reviewing Chart: 31+ minutes - s/p OR today for I&D 3 back/sacral wounds were debrided down to bone with >100 sq cm of tissue debrided. - Partial OSH records from [facility]. Note from 09/26/24 stating that patients imaging c/f vertebral discitis/osteomyelitis; 2 biopsies were negative though the biopsy yield is low. He was seen by ID and treated empirically with a 6-week course of vancomycin and ceftriaxone (EOT 11/03/24). The note also mentioned that the patient had RV failure. - 10/24 TTE showing long (5.3 x 0.8 cm) hypermobile mass in RA partially prolapses across TR. Appearance suggestive of thrombus, less likely vegetation Results & Data Vital Signs (Past 12 Hours) Vital Signs Temp Pulse Pulse Resp BP Pulse Ox O2 Del Method 10/24/24 17:05 Nasal Cannula 10/24/24 15:10 36.4 C L 90 16 105/60 96 Nasal Cannula 10/24/24 11:56 36.4 C L 87 19 102/54 L 94 Nasal Cannula 10/24/24 11:33 Nasal Cannula 10/24/24 10:55 36.3 C L 88 19 102/50 L 91 Nasal Cannula 10/24/24 10:30 36.3 C L 51 L 19 109/55 L 91 Nasal Cannula 10/24/24 10:10 36.3 C L 84 16 94/45 L 93 Nasal Cannula 10/24/24 10:00 80 12 107/58 L 93 Nasal Cannula 10/24/24 09:50 80 12 114/53 L 93 Nasal Cannula 10/24/24 09:40 76 12 104/60 94 Nasal Cannula 10/24/24 09:30 77 14 119/58 L 97 Nasal Cannula 10/24/24 09:20 79 12 103/47 L 94 Nasal Cannula 10/24/24 09:10 79 16 104/57 L 98 Oxymask 10/24/24 08:59 36 C L 80 12 104/48 L 97 Oxymask 10/24/24 06:55 84 20 93 Nasal Cannula 10/24/24 06:46 36.6 C 87 20 126/67 93 Nasal Cannula O2 Flow Rate 10/24/24 17:05 2 10/24/24 15:10 2 10/24/24 11:56 2 10/24/24 11:33 2 10/24/24 10:55 2 10/24/24 10:30 2 10/24/24 10:10 2 10/24/24 10:00 2 10/24/24 09:50 2 10/24/24 09:40 2 10/24/24 09:30 2 10/24/24 09:20 2 10/24/24 09:10 3 10/24/24 08:59 6 10/24/24 06:55 2 10/24/24 06:46 2 Diagnostic Findings Diagnostics: 10/24 TTE Long (5.3 x 0.8 cm) hypermobile mass in RA partially prolapses across TR. Appearance suggestive of thrombus, less likely vegetation 10/24 I&D op note Specimens 1. debrided ulcer tissue 2. sacral bone biopsy We began by using a 10 blade scalpel to cut down through the periphery of each back wound. These were all irregularly shaped. They all had black central eschar. We used cautery to remove all the overlying tissue and sent 3 pieces of soft tissue as specimen. Each wound was carried down through skin and soft tissue down to bone. The total square cm of debridement was over 100 square cm. We controlled all bleeding using cautery. I used a rongeur to obtain a bone biopsy of the sacrum. 10/20 CT A/P Proctitis with increased arterial vascularity along the wall of the inflamed rectum. This may represent the source of bleeding. Large right inguinal hernia containing a significant portion of the nondistended ascending colon. 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 Age-indeterminate compression fractures of L1 and L2 vertebral bodies with moderate retropulsion. Small pleural fluids with subjacent bibasilar pulmonary densities that may represent atelectasis and pneumonia. Micro Data: 10/24 Sacral wound OR Cx: PEND 10/21 Sacral wound Cx: ESBL E. coli (S-clyde/erta/cipro/levo/Bactrim), Pseudomonas aeruginosa (solomon-S), Bacteroides ovatus Antibiotic Summary: vancomycin (10/06/, 4 present) meropenem (10/23 present) prior cefepime (10/22) ceftriaxone (10/06 10/19, 10/20 10/21)
[2024-10-24] MEDS: HEPARIN 25000 UNIT/500 ML D5W 25,000 UNITS/500 ML BAG IV SCH (18:22)
[2024-10-24] MEDS: PANTOprazole 40 MG TAB PO SCH (21:40)
[2024-10-25 01:10] LABS: ANTI-Xa, UFH(UnfractionatedHep 0.17 IU/ml (0.3-0.7)
[2024-10-25] MEDS: HEPARIN SOD (PORCINE) 1000 UNIT/ML IV ONE (01:42)
--- NOTE | 2024-10-25 05:43 | Electrocardiogram Report ---
Test Reason : Blood Pressure : */* mmHG Vent. Rate : 85 BPM Atrial Rate : 85 BPM P-R Int : 214 ms QRS Dur : 80 ms QT Int : 378 ms P-R-T Axes : 69 -5 60 degrees QTcB Int : 449 ms Sinus rhythm with 1st degree A-V block Low voltage QRS Borderline ECG No previous ECGs available Confirmed by Ciro Mariano ([id number]) on 10/25/2024 5:43:11 AM Referred By: REFERRED SELF Confirmed By: Ciro Mariano
[2024-10-25 07:34] LABS: Hematocrit (blood only) 24.7 % (42.0-52.0); Hemoglobin 8.1 g/dl (14.0-18.0); Mean Corpuscular Hemoglobin 27.4 pg (25.0-34.0); Mean Corpuscular Hgb Conc 32.8 g/dL (32.0-36.0); Mean Corpuscular Volume 83.4 fL (80.0-100.0); Mean Platelet Volume 9.1 fL (9.4-12.4); Platelet Count 277 K/uL (130-400); RDW Coefficient of Variation 19.3 % (11.5-14.5); RDW Standard Deviation 58.3 fL (36.4-46.3); Red Blood Count 2.96 M/uL (4.70-6.10); White Blood Count 8.77 K/ul (4.8-10.8)
[2024-10-25 07:41] LABS: ANTI-Xa, UFH(UnfractionatedHep 0.38 IU/ml (0.3-0.7)
--- NOTE | 2024-10-25 08:06 | Surgery Progress Note ---
Date of Service October 25, 2024 Assessment & Plan (1) Sacral wound: Plan: POD 1 Sacral Debridement and Bone Biopsy Pt denies complaints will consult wound care for recs on post surgical debridement VSS , wbc 8, was started on heparin gtt yesterday evening continue care per primary service General surgery will follow from peripheral call with questions/concerns Admission and Anticipated Discharge Date Admission Date: October 20, 2024 Subjective pt denies complaints Review of Systems Constitutional: no fever and no chills Integumentary: + wounds Physical Exam Constitutional: cooperative and comfortable; no acute distress Respiratory: normal respiratory effort; no respiratory distress Skin: + wound Results & Data Vital Signs (Past 12 Hours) Vital Signs Temp Pulse Pulse Resp BP Pulse Ox O2 Del Method 10/25/24 03:20 98.1 F 89 18 132/65 99 Nasal Cannula 10/24/24 23:15 97.9 F 87 19 125/64 94 Nasal Cannula 10/24/24 22:00 88 O2 Flow Rate 10/25/24 03:20 2 10/24/24 23:15 2 10/24/24 22:00 PG Care Time/CCT Total # of Minutes Spent Total Time Spent with Patient: Total time spent is greater than 50% in coordination of care (as documented) at patient's floor/unit and/or counseling patient: Coding Level of Care Code 38955 Post Operative Follow-Up Diagnoses Sacral wound S31.000A Encounter type: initial encounter (1) Sacral wound Encounter type: initial encounter Qualified Code(s): S31.000A - Unspecified open wound of lower back and pelvis without penetration into retroperitoneum, initial encounter
[2024-10-25 08:26] LABS: BUN Creatinine Ratio 40.9 (10-20); Calcium 8.7 mg/dl (8.6-10.3); Creatinine Clr Calc Pharmacy 108.3 ml/min; Potassium 4.1 mmol/L (3.5-5.1)
[2024-10-25] MEDS: LANTUS PER UNIT CHARGE SC SCH (08:43)
--- NOTE | 2024-10-25 10:33 | Hospitalist Progress Note ---
Date of Service October 25, 2024 Assessment & Plan (1) GI bleed: (2) Sacral wound: (3) Discitis: (4) Hyponatremia: Plan 79-year-old male PMHx sacral ulcers, GERD, PUD w/ h/o UGI, HTN, HLD, and T2DM presenting for rectal bleed. Had recent stay at [facility] with CHF, PNA and discitis. as having ongoing back pain, total duration of 6 months; found to have L1-L2 compression fracture with retropulsion at that time. Repeat MRI performed with persistent changes and possibility of mild progression, neurosurgery and infectious disease recommended 6 weeks ceftriaxone and vancomycin for possibility of discitis. Does also have history of large right inguinal hernia but had refused surgical consultation at . From [facility] On 10/16 [facility], but presented back on 10/18. On 10/19 he was transferred from [facility] to [place] for rectal bleeding with hgb of 7. #Sacral ulcer - present on admission *Pressure ulcer of left heel, stage 3, POA *Pressure ulcer right lateral back, stage 3, POA *Pressure ulcer middle back, stage 3, POA *Pressure ulcer of sacral region, stage 4, POA General surgery consulted- s/p Sacral Debridement and Bone Bx with Dr. Mcclellan 10/24, WC RN consulted for post op management Continue low air loss bed CTA A/P: osteomyelitis of coccyx Wound culture: + for E coli ESBL and Pseudomonas -- abx switched to meropenem 10/23 ID consulted - continue meropenem and vancomycin, check blood cultures, multi- modal approach for wound healing Pain control: prn tylenol and oxycodone #GI bleed CTA of abdomen & pelvis: proctitis. GI consulted - s/p EGD without cause of bleed, started colo but not fully prepped, will require colonoscopy at some point when stable however given complexity of his case this will likely be outpatient. s/p 2 units PRBC. hgb downtrending slightly Now constipated - started daily miralax and senna AM CBC and BMP #Discitis / Compression fractures Per d/c summary "Noted to have probable osteomyelitis and discitis and had 2 biopsies both which yield was negative. Due to high clinical suspicion, it was recommended that we teat him for 6 weeks with IV antibiotics by neurosurgery. ID was involved and infectious disease recommends 6 weeks of IV antibiotics with vancomycin and Rocephin" [6 week end date of 11/03] ID following - continue vanco and meropenem. Repeat MRI T/L spine ordered 10/24 but patient refusing, even with premedication. CT L-spine 10/25 showing unchanged severe L1 and L2 fractures, extensive bony erosion with retropulsion. Favor subacute fractures. [facility] consulted - severe degeneration, likely not infected, observation only Will try to obtain previous MRI spine from [facility] PT/OT consulted - will need rehab, [facility] #Right Intra-Atrial Mass Seen on Echo 10/24, suspect clot, heparin drip started Cardiology consulted - plan for CTA and limited echo today Possible related to/touching PICC line - this should NOT be removed #T2DM Home regimen: metformin, pioglitazone, Jardiance - HELD. A1c 8.4% SSI with target BSG range 110-140mg/dL, CF 30, carb ratio 10 Pharm glycemic management consult #Chronic HFpEF H/o HFpEF per report, PH d/c summary states "noted to have right ventricular failure. he was started on lasix and will need a right heart cath as an outpatient" However no lasix dose listed on D/c summary (but does have jardiance) - will obtain echo and BMP Daily weights + strict I+Os, SCDs, TEDs CXR: mild cardiomegaly w/ increase in interstitial pulmonary edema. moderate right & small left pleural effusions --> rec interval follow up Effusions on chest CTA 10/25 - if BP remains stable, consider IV diuretics tomorrow #COPD- No O2 at baseline, presumed COPD per last hospital course; continue bronchodilator therapy #HTN- Losartan on hold secondary to hypotension #HLD- Atorvastatin #R inguinal hernia- Identified on prior CTAP with some loops of bowel present in the hernia, patient is at risk for developing incarcerated bowel but had refused surgical consult for such Dispo: continued inpatient stay VTE prophylaxis: SCD, heparin gtt Partner updated at bedside 10/23 & 10/[address] Paulson and Dr. Johnson Admission and Anticipated Discharge Date Admission Date: October 20, 2024 Supervising Physician Co-Signing Physician Notes PA Supervision Note: I did not personally see or examine the patient today, but I verified all bruce points of BRENT Prince's assessment and plan with the following exceptions/additions: I discussed his care with Dr. Paulson of Cardiology and Dr. Lee of ID. Right atrial mass is almost certainly a large thrombus, likely attached to a PICC line. Starting anticoagulation and plan to repeat ECHO prior to removal of PICC after treatment course completed. COntinue IV antibiotics and will discuss case with [facility]. Subjective Patient seen this morning - no family present at bedside reports feeling well. was able to stand with PT today. Encouraged OOB to chair today to offload wounds patient is refusing MRI unless he can be under general anesthesia. States it was "too much" and would like a couple days to think about it Not moving his bowels Tele - SR 80-90s Review of Systems Review of Systems: All systems reviewed & are unremarkable except as noted in Subjective Physical Exam Physical Exam: General: NAD, VS as above Resp: normal respiratory effort, diminished in bases, on 2L CV: RRR, no murmur, Abd: normal bowel sounds, non tender, no hepatosplenomegaly extremities: No LE pitting edema Neuro: A&O x3, Results & Data Results & Data Vital Signs (Past 12 Hours) Vital Signs Temp Pulse Resp BP Pulse Ox O2 Del Method O2 Flow Rate 10/25/24 07:55 97.5 F L 95 H 18 121/54 L 94 Nasal Cannula 2.0 10/25/24 03:20 98.1 F 89 18 132/65 99 Nasal Cannula 2 10/24/24 23:15 97.9 F 87 19 125/64 94 Nasal Cannula 2 Laboratory Results cbc and chemistry reviewed BNP reviewed Diagnostic Findings echo reviewed CT L spine reviewed PG Care Time/CCT Total # of Minutes Spent Total Time Spent with Patient: Total time spent is greater than 50% in coordination of care (as documented) at patient's floor/unit and/or counseling patient: Coding Level of Care Code 95743 SUB INP/OBS CARE 3/50MIN Diagnoses GI bleed K92.2 GI bleed type/associated pathology: unspecified gastrointestinal hemorrhage type Sacral wound S31.000A Encounter type: initial encounter Discitis M46.40 Hyponatremia E87.1 (1) GI bleed GI bleed type/associated pathology: unspecified gastrointestinal hemorrhage type Qualified Code(s): K92.2 - Gastrointestinal hemorrhage, unspecified (2) Sacral wound Encounter type: initial encounter Qualified Code(s): S31.000A - Unspecified open wound of lower back and pelvis without penetration into retroperitoneum, initial encounter
--- NOTE | 2024-10-25 10:40 | Gastroenterology Progress Note ---
Date of Service October 25, 2024 Assessment & Plan (1) Anemia: Plan: In the absence of obvious GI bleeding and new findings of atrial mass, possible thrombus, plans for any endoscopic evaluation will be on hold. Admission and Anticipated Discharge Date Admission Date: October 20, 2024 Supervising Physician Co-Signing Physician Notes I saw and examined this patient with our nurse practitioner and agree with her assessment and plan. No further GI bleeding. Status post decubitus ulcer debridement. Finding of possible atrial thrombus. Will hold on any further endoscopic intervention at this time. Please call if there are any further issues. He could have an outpatient colonoscopy after discharge. Subjective no further rectal bleeding. He underwent debridement of his sacral ulcers yesterday. Echo was ordered to evaluate for CHF last evening that was concerning for right atrial mass, possible thrombus. Started on heparin drip. no current GI concerns. Review of Systems Review of Systems: All systems reviewed & are unremarkable except as noted in HPI & below Physical Exam Constitutional: WD/WN, vitals as above Respiratory: normal respiratory effort, lungs clear to auscultation Cardiovascular: Rate/Rhythm: regular rate and regular rhythm Gastrointestinal (Abdomen): normal bowel sounds, soft, nontender, no hepatosplenomegaly Psychiatric: Orientation: alert and oriented x 3 Affect: euthymic affect Results & Data Results & Data Vital Signs (Past 12 Hours) Vital Signs Temp Pulse Pulse Resp BP Pulse Ox O2 Del Method 10/25/24 10:38 85 10/25/24 07:55 97.5 F L 95 H 18 121/54 L 94 Nasal Cannula 10/25/24 03:20 98.1 F 89 18 132/65 99 Nasal Cannula 10/24/24 23:15 97.9 F 87 19 125/64 94 Nasal Cannula O2 Flow Rate 10/25/24 10:38 10/25/24 07:55 2.0 10/25/24 03:20 2 10/24/24 23:15 2 Coding Level of Care Code 75124 SUB INP/OBS CARE 08/12MIN Diagnoses Anemia D62 Anemia type: other cause Other causes of anemia: acute posthemorrhagic (1) Anemia Anemia type: other cause Other causes of anemia: acute posthemorrhagic Qualified Code(s): D62 - Acute posthemorrhagic anemia
--- NOTE | 2024-10-25 10:44 | Pharmacy Report ---
Pharmacy PK ABX Note - Date of Service October 25, 2024 - Assessment and Plan Assessment 10/25/24: * Bacteroides ovatus group also growing in sacral culture. * Vancomycin/meropenem per ID. * TTE does not show any significant valvular pathology. BERNABE ordered. 10/23/24: * Sacrum culture finalized as E.coli (ESBL) and Pseudomonas. Cefepime changed to meropenem. * Plan for OR tomorrow (10/24) for sacral debridement and bone biopsy. * Renal function largely stable. 10/22: * Day #3 of Vancomycin. Ceftriaxone was changed to cefepime today given pseudomonas growing in sacral culture. * White count 15.9k today. SCr stable, 0.80 mg/dL this AM. * Vanc level therapeutic today but predicted AUC/ANGEL is supratherapeutic at steady state. Will decrease dose. 10/21: * Improvement in renal fxn today requires a dose increase for vancomycin. Will adjust timing of level as well. * Still attempting to figure out appropriate stop date for iv abx. 10/20: 79 year old M receiving Vancomycin 1250 mg IV q24h for treatment of discitis. C urrently also with sacral wound ulcer. Recently admitted 09/12/24 at [facility] with heart failure and Pneumonia. ID recommended 6 weeks of IV Vancomycin and Rocephin for discitis found on MRI. It is not clear when the IV antibiotics were started. He was discharged to Rehab on 09/28/24 but now admitted here for rectal bleeding. Surgery consulted for possible need for debridement of sacral wound. Plan Vancomycin * Current regimen: 750 mg IV every 12 hours * Random level obtained 10/25/24 resulted as 18.5 mcg/mL. This is predicted to achieve target AUC/ANGEL of 400-600 mg/L.hr * Predicted AUC at steady state: 450 mg/L.hr * Continue 750 mg IV every 12 hours * Will repeat level on 10/27/24 Meropenem * 500 mg IV q6h - appropriately dosed for indication/renal function Pharmacy will continue to follow and will adjust dose/frequency as necessary. Thank you. Pharmacy has transitioned to AUC monitoring for vancomycin. AUC/ANGEL is the preferred PK/PD target and is associated with decreased risk of nephrotoxicity compared to traditional trough targets.
--- NOTE | 2024-10-25 11:27 | Pharmacy Report ---
Pharmacy Glycemic Short Note 2 - Date of Service October 25, 2024 - Glycemic Short BSG Results (Last 24 hours): 10/24/24 10/24/24 10/25/24 16:04 21:02 07:17 Glucose 141 H POC Glucose 193 H 189 H 10/25/24 10/25/24 07:20 11:18 Glucose POC Glucose 145 H 158 H OUTPATIENT ANTIDIABETIC REGIMEN: * Jardiance 25 mg daily * Actos 15 mg BID HbA1c: 8.4% on 10/20/24 ASSESSMENT: 10/25/24: * Blood sugars reasonably well-controlled yesterday, but trending up throughout the day * Will tighten Novolog back to prior carb ratio * Fasting blood sugar trending up * Will increase basal * Remains on broad spectrum antibiotics (vancomycin and meropenem) and heparin gtt (mixed in dextrose) 10/23/24: * Blood sugars have been reasonably well-controlled over past 48 hours, although patient did have a low of 66 mg/dL last evening * Will loosen Novolog parameters today * Antibiotics adjusted (cefepime changed to meropenem) 10/20/24: * 79 y/o M admitted for rectal bleed, sacral wound ulcer and discitis being treated with IV antibiotics. He has history of Type 2 diabetes managed only with oral anti-diabetic meds. * Pharmacy consulted for glycemic management yesterday. Novolog started last night with moderate stress parameters. * Patient is NPO. BSG was only slightly elevated last night. Today fasting BSG is 116 mg/gl. Holding off on starting basal insulin since BSG at goal. * Possible surgical debridement of wound ulcer. Will continue to hold basal insulin due to NPO status. PLAN FOR INPATIENT GLYCEMIC CONTROL: * Hold outpatient oral diabetes medications * Basal insulin * Lantus 8 units SC daily * Bolus insulin * NovoLog per scale ACHS or Q6hrs while NPO * Goal Range: Low 100 mg/dL - High 150 mg/dL * Correction Factor: 35 mg/dL/unit * Nutritional / Prandial insulin per carb ratio of 1 unit per 12 grams CHO consumed
[2024-10-25] MEDS: OPTIRAY 320 125ml IV ONE (11:42)
[2024-10-25] MEDS: VANCOMYCIN LEVEL ONE (11:43)
--- NOTE | 2024-10-25 12:10 | CT Scan Report ---
CT angio chest PE protocol CT DOSE: 1943.16mGy*cm HISTORY: PE. TECHNIQUE: Multiple CTA images of the chest were obtained after the intravenous administration of 118 ml Optiray. Coronal and sagittal MIPS were obtained from the axial data set and were submitted for review. All measurements were obtained according to NASCET criteria. A dose lowering technique was u tilized adhering to the principles of ALARA. COMPARISON STUDY: Chest radiograph dated 10/20/2024 FINDINGS: There is no evidence of a pulmonary embolism. There are moderate-sized bilateral pleural ef fusions. There is bilateral compressive atelectasis and/or consolidation of the lower lobes as well a s2 a small component of the right middle lobe. There is no aortic aneurysm. There is no pericardial e ffusion. The heart is increased in transverse diameter. The upper abdominal images demonstrate compression deformities of L1 and L2 associated with the fragm entation and as this significant spinal canal stenosis as a result of retropulsion. It is unclear bas ed upon this study whether these represent traumatic or pathologic fractures. Correlation with lumbar spine as CT or MRI is suggested. There is a low attenuation thickening of both limbs of the left adr enal gland. IMPRESSION: No evidence of pulmonary embolism. Bilateral pleural effusions with compressive atelectasis and/or consolidation in both lower lobes. Fragmented fractures of L1 and L2 with paraspinous soft tissue prominence and spinal canal stenosis. Recommend correlation with CT or MRI. Pathologic fractures or infection not excluded. ACT 112: Negative or not required by law. The above report was generated using voice recognition software. It may contain grammatical, syntax o r spelling errors. Electronically signed by: Dipti Mcgovern M.D. 10/25/2024 12:08 PM
--- NOTE | 2024-10-25 12:14 | CT Scan Report ---
LUMBAR SPINE CT WITHOUT CONTRAST CLINICAL HISTORY: reveal compression fx vs bony destruction L1-L2 COMPARISON STUDY: CTA of the abdomen and pelvis October 20, 2024. TECHNIQUE: Axial images of the lumbar spine were obtained without IV contrast. Sagittal and coronal r eformats were viewed. A dose lowering technique was utilized adhering to the principles of ALARA. FINDINGS: Please note that the chest CT will be reported separately. Bilateral pleural effusions are better depicted on that exam. For purposes of numbering on this exam, the L5-S1 disc space is assigne d to axial image 337 of [id number]. There is mild lumbar spine levoscoliosis. A severe L2 compression fractu res unchanged in appearance since CT of October 20, 2024. There is extensive bony erosion involving the inferior endplate of the L1 vertebral body with 80% loss of vertebral body height. Bony fragmentation is noted. A 1 cm bone fragment within the canal represents a retropulsed bone fragment which results in severe central canal stenosis. This is unchanged. There is also a fracture involving the superior plate of L2, unchanged appearance. This results in 60% loss of vertebral body height. There is no re tropulsion at this level. There are healing fractures of the right transverse process of L1 and the b ilateral transverse processes of L2 as well as the posterior bilateral 12th ribs. Mild paravertebral edema at the L1-L2 level is present. No definitive osseous lesion is identified. Central canal and ne ural foramen are suboptimally assessed given CT technique. Moderate disc space narrowing, endplate os teophytosis and facet arthrosis within the lumbar spine is present. A 3.3 cm infrarenal abdominal aor tic aneurysm is incidentally noted. IMPRESSION: 1. Severe L1 and L2 compression fractures, unchanged in appearance since CT of October 20, 2024. Extensi ve bony erosion involving the inferior endplate of L1 with an associated 1 cm retropulsed bone fragme nt at the L1 level which results in severe central canal stenosis, unchanged. Although age indetermin ate, subacute fractures are favored. No CT evidence for underlying malignancy. Although fractures and bony erosion centered at the L1-L2 level, the findings are not highly suggestive of discitis/osteomy elitis although correlation with evidence for an infectious process is recommended. 2. Healing fractures of the right transverse process of L1, bilateral L2 transverse processes and pos terior 12th ribs. 3. Moderate multilevel degenerative disc disease and facet arthrosis within the lumbar spine. 4. Mild lumbar spine levoscoliosis. ACT 112: Negative or not required by law. Electronically signed by: Terry Tanner M.D. 10/25/2024 12:12 PM
[2024-10-25] MEDS: POLYETHYLENE (MIRALAX) 17 GM PACK PO SCH (12:16)
[2024-10-25] MEDS: DOCUSATE SODIUM/SENNA 50/8.6MG TAB PO SCH (12:16)
--- NOTE | 2024-10-25 12:59 | Infectious Disease Progress Nt ---
Date of Service October 25, 2024 Assessment & Plan (1) Osteomyelitis of sacrum: (2) Discitis: (3) Type 2 diabetes mellitus: Plan Impression: Eddie Go is a 79-year-old man with a history of sacral ulcers, PUD, HTN, T2DM, recent admission 09/1209/28/24 at [facility] (CHF exacerbation, pna, and found to have presumed discitis on 6 weeks of empiric vancomycin and ceftriaxone), who presents from rehab to [facility] on 10/20/23 with rectal bleed, found to have sacral wound infection and sacral osteomyelitis, 10/21 sacral superficial wound Cx + ESBL E. coli and Pseudomonas aeruginosa. ID is consulted for sacral wound infection. The patient was previously admitted 09/1209/28/24 at [facility] with heart failure exacerbation and possible pna. At that visit, he was found to have back pain, with initial back MRI showing L1-L2 compression fracture with retropulsion; a repeat MRI showed possible progression, and thus a diagnosis of presumed discitis was made. Neurosurgery and ID both recommended to treat with antibiotics for presumed discitis he was recommended to complete a 6-week course of vancomycin and ceftriaxone via PICC. Of note, the patient was also found to have a large R inguinal hernia but declined surgery at the time. This admission, he presents with rectal bleeding. Upon admission, afebrile, WBC 8.18. On 10/22, WBC increased to 15.9. The patient was noted to have sacral wound on admission with suspected sacral wound infection. 10/20 CT A/P showed sacral decubitus ulcer with coccyx osteomyelitis, age-indeterminate compression Fx of L1-L2 with moderate retropulsion, proctitis, large R inguinal hernia; bibasilar pulmonary densities c/f atelectasis vs. pna. General surgery was consulted with plan to go to OR for debridement and bone Bx on 10/24. A superficial wound Cx of the sacrum on 10/21 was + ESBL E. coli and Pseudomonas aeruginosa. The patient was initially on ceftriaxone -> cefepime -> and changed to meropenem on 10/23. Of note, pt underwent EGD on 10/20 which was negative for bleeding, and C-scope which showed old blood in the colon. Discussion Pt with previously reported diagnosis of discitis based on back pain and imaging results. Partial OSH records from [facility] received. Note from 09/26/24 stating that patients imaging c/f vertebral discitis/osteomyelitis; 2 biopsies were negative though the biopsy yield is low. He was seen by ID and treated empirically with a 6-week course of vancomycin and ceftriaxone (EOT 11/03/24). 10/25 CT L-spine showing L1-L2 compression fracture and bony erosion, at this time not highly suggestive of discitis/osteomyelitis though this is after several weeks of IV abx. Notably, OSH records also mentioned that the patient had RV failure. 10/24 TTE showing long (5.3 x 0.8 cm) hypermobile mass in RA partially prolapses across TR. Appearance suggestive of thrombus, less likely vegetation. OSH records did not report TTE results. It is unclear whether this is a new finding. Although the TTE appearance states that the finding is c/w thrombus in appearance, it is concerning that the OSH CHF symptoms were concomitant with a new dx of discitis/osteomyelitis, and thus is concerning for infective endocarditis. Per cardiology, pts RA thrombus/vegetation is felt to be PICC-associated, however hesitant about PICC removal leading to dislodging of mass. Will obtain BCx (though pt has been on long-term abx prior to admission and during hospitalization), ordered on 10/25. Pt with multiple sacral and back pressure wounds with central necrosis. S/p OR 10/24 for I&D 3 back/sacral wounds were debrided down to bone with >100 sq cm of tissue debrided. Oftentimes, unable to cure chronic sacral osteomyelitis unless there is an intensive wound care and pressure offloading plan; sometimes for more severe wounds, this also involves definitive surgical plan involving plastic surgery and flap procedure, and stool/urinary management such as ostomy. On 10/24, discussed with Dr. Mcclellan feels that with appropriate nutrition, offloading, and wound vac, that the wounds may have a chance at healing prior to his recent admission and rehab stay, the patient was ambulating and functioning well. Given that this is the pts first time with a sacral wound, may be reasonable to trial a course of IV abx for treatment. If he is still unable to heal the wounds after abx, then will need to reassess treatment options and possible GOC. Superficial wound swab with ESBL E. coli, PsA, Bacteroides ovatus; these may be wound colonizers but can continue meropenem for now. Will follow OR Cx from 10/24. Currently on vancomycin (for empiric vertebral discitis/osteomyelitis and possible IE treatment) and meropenem (for sacral SSTI, also encompasses broad empiric discitis/osteomyelitis treatment). Will have received a 6-week course of IV abx by 11/03/24 for empiric vertebral discitis/osteomyelitis however if also treating for sacral osteomyelitis, and if uncertainty about duration of cardiac thrombus vs. vegetation, may consider extending course for another 6 weeks. Recommendations: - Continue meropenem for ESBL/Pseudomonas sacral wound infection, if treating for sacral osteomyelitis then anticipate a 6-week course - Continue IV vancomycin - Obtain BCx, ordered for 10/25 - Appreciate cardiology following, discussing BERNABE for possible PICC-associated RA thrombus vs. vegetation. Consider cardiac surgery evaluation. - S/p I&D on 10/24 will follow bone and tissue Cx - Ensure a multi-modal approach to healing of sacral/back pressure wounds, including wound offloading, possible wound vac, and close outpatient follow-up with surgery and wound care ID will continue to follow. Shweta Lee MD, MHS Infectious Diseases [facility] ID Connect direct line: [phone] Admission and Anticipated Discharge Date Admission Date: October 20, 2024 Subjective Subsequent visit was provided via telemedicine using two-way real-time interactive telecommunication between the patient and the telemedicine provider. For the duration of the visit, the provider was performing the assessment from a different facility than the patient. This includesuse of bluetooth stethoscope forauscultationperformed by the telepresenter that the telemedicine provider can hear if described in the physical exam. Gl Accountant contact information: Please call [facility] Call Center [phone]. (Phone Number For Physician Use Only) After establishing a telemedicine visit, patient was: Patient was verified with two unique identifiers, Patient/authorized rep acknowledged consent and understanding and Gave permission to continue telehealth session Time Spent with Patient: Subsequent => 55 min Physical Exam Physical Exam: Exam obtained with aid of in-person telepresenter. General: Well-appearing, no acute distress HEENT: Conjunctivae non-injected, sclerae anicteric, MMM, OP clear. Resp: Respirations nonlabored. Back: Sacrum, mid-back, and upper R back wounds now s/p I&D with dressings in place Ext: No joint warmth or effusions noted. RUE PICC c/d/i Skin: Wounds on back as above Neuro: Alert & interactive. Grossly non-focal Psych: Pleasant, appropriate. Results & Data Vital Signs (Past 12 Hours) Vital Signs Temp Pulse Pulse Resp BP Pulse Ox O2 Del Method 10/25/24 11:22 Nasal Cannula 10/25/24 11:16 36.6 C 86 18 113/64 99 Nasal Cannula 10/25/24 10:38 85 10/25/24 07:55 36.4 C L 95 H 18 121/54 L 94 Nasal Cannula 10/25/24 03:20 36.7 C 89 18 132/65 99 Nasal Cannula O2 Flow Rate 10/25/24 11:22 4 10/25/24 11:16 2.0 10/25/24 10:38 10/25/24 07:55 2.0 10/25/24 03:20 2 Diagnostic Findings Diagnostics: 10/25 L-spine CT 1. Severe L1 and L2 compression fractures, unchanged in appearance since CT of October 20, 2024. Extensive bony erosion involving the inferior endplate of L1 with an associated 1 cm retropulsed bone fragment at the L1 level which results in severe central canal stenosis, unchanged. Although age indeterminate, subacute fractures are favored. No CT evidence for underlying malignancy. Although fractures and bony erosion centered at the L1-L2 level, the findings are not highly suggestive of discitis/osteomyelitis although correlation with evidence for an infectious process is recommended. 2. Healing fractures of the right transverse process of L1, bilateral L2 transverse processes and posterior 12th ribs. 3. Moderate multilevel degenerative disc disease and facet arthrosis within the lumbar spine. 4. Mild lumbar spine levoscoliosis. 10/25 CTA chest No evidence of pulmonary embolism. Bilateral pleural effusions with compressive atelectasis and/or consolidation in both lower lobes. Fragmented fractures of L1 and L2 with paraspinous soft tissue prominence and spinal canal stenosis. Recommend correlation with CT or MRI. Pathologic fractures or infection not excluded. 10/24 TTE Long (5.3 x 0.8 cm) hypermobile mass in RA partially prolapses across TR. Appearance suggestive of thrombus, less likely vegetation 10/24 I&D op note Specimens 1. debrided ulcer tissue 2. sacral bone biopsy We began by using a 10 blade scalpel to cut down through the periphery of each back wound. These were all irregularly shaped. They all had black central eschar. We used cautery to remove all the overlying tissue and sent 3 pieces of soft tissue as specimen. Each wound was carried down through skin and soft tissue down to bone. The total square cm of debridement was over 100 square cm. We controlled all bleeding using cautery. I used a rongeur to obtain a bone biopsy of the sacrum. 10/20 CT A/P Proctitis with increased arterial vascularity along the wall of the inflamed rectum. This may represent the source of bleeding. Large right inguinal hernia containing a significant portion of the nondistended ascending colon. 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 Age-indeterminate compression fractures of L1 and L2 vertebral bodies with moderate retropulsion. Small pleural fluids with subjacent bibasilar pulmonary densities that may represent atelectasis and pneumonia. Micro Data: 10/24 Sacral wound OR Cx: NGTD 10/21 Sacral wound Cx: ESBL E. coli (S-clyde/erta/cipro/levo/Bactrim), Pseudomonas aeruginosa (solomon-S), Bacteroides ovatus Antibiotic Summary: vancomycin (10/06 10/19, 4 present) meropenem (10/23 present) prior cefepime (10/22) ceftriaxone (10/06 10/19, 10/20 10/21)
--- NOTE | 2024-10-25 14:10 | XCELERA ---
[id number]
--- NOTE | 2024-10-25 14:15 | Cardiology Consultation ---
Date of Consultation October 25, 2024 Assessment & Plan (1) Right atrial mass: 2. HFpEF 3. L1-L2 compression fractures/? discitis 4. Sacral osteomyelitis 5. GI bleed/Esophagitis/Diverticulosis 6. Anemia 7. Type 2 DM Right atrial mass appears to be clot extending from SVC, potentially involving PICC line from right upper extremity. Based on appearance suspicion for vegetation is very low. Mass hypermobile and does appear to partially prolapse across tricuspid valve. No mention of mass on prior echo report from previous hospitalization. Chest CTA obtained today revealed no evidence of PE. Repeat limited echo today right atrial mass appeared unchanged and no evidence of interatrial shunt. We discussed options for asymptomatic right heart thrombus. Does not appear to be a candidate for surgical embolectomy or full dose thrombolysis at this time with comorbidities. Transfer to tertiary center for consideration of catheter directed therapy could be a potential option although still risk and looks to be difficult from a technical standpoint. After discussing options with his partner patient at this time would like to avoid additional procedures if possible and continue on anticoagulation alone. I agree with this decision. Plan: Continue anticoagulation with IV heparin. Long-term consider DOAC Would not remove PICC line currently due to risk for embolization. Would need repeat echo imaging before removal Resume Bumex, continue daily weights. Long-term resume Jardiance as able History of Present Illness Attending Physician: Elin Reyes MD History of Present Illness Mr. Go was seen today in the setting of new right atrial mass seen yesterday on echo. Echo yesterday showed normal LV function, flattened septum with possible possible increased RV pressure, borderline dilated RV and large hypermobile mass which seem to extend from SVC and partially prolapsed across tricuspid valve. Hospitalized 08/2024 at [facility] before L1-L2 compression fracture with spinal stenosis and concern for possible discitis as well as new acute diastolic heart failure. Underwent biopsy with neurosurgery x 2 which was negative and decision to treat with 6 weeks of IV antibiotics, PICC line placed. Discharged on twice daily Bumex 1 mg twice daily. Echo at that time reported preserved LVEF and no mention of RA mass. Discharged to [facility] for rehab. Admitted to [facility]/09/2024 in the setting of ongoing back pain and questionable GI bleed. Underwent EGD, limited sigmoidoscopy and bleeding thought to be due to diverticulosis, also with esophagitis. Hemoglobin 7 on admit, transfused 2 units, recent hemoglobin stable at 8. Has sacral decubitus ulcer, left heel ulcer and initial CT A/P showed sacral osteomyelitis. On broad-spectrum antibiotics per ID, WBC down trended. Underwent sacral debridement and bone biopsy with Dr. Mcclellan yesterday. Today denies any chest pain or new shortness of breath. Sinus rhythm on te lemetry, no tachycardia. Intermittent brief desats on pulse ox on 4 L NC. Hemodynamically stable. Allergies Allergy/AdvReac Type Severity Reaction Status Date / Time No Known Allergies Allergy Verified 10/24/24 06:51 Home Medications Medication Instructions Recorded Confirmed Type acetaminophen 325 mg tablet 650 mg PO Q4 PRN PAIN 1-3 10/19/24 10/19/24 History acetaminophen 500 mg tablet 500 mg PO Q4 PRN TEMP > OR = 100.5 10/19/24 10/19/24 History atorvastatin 10 mg tablet 10 mg PO HS 10/19/24 10/19/24 History calcium carbonate 500 mg PO Q8 PRN Indigestion 10/19/24 10/19/24 History ceftriaxone 2 gram solution for 2,000 mg IV .QDL 10/19/24 10/19/24 History injection docusate sodium 100 mg capsule 100 mg PO .Q12 HR PRN Constipation 10/19/24 10/19/24 History (Colace) empagliflozin 25 mg tablet 25 mg PO QAM 10/19/24 10/19/24 History (Jardiance) ipratropium 0.5 mg-albuterol 3 mg 3 ml inhalation TID 10/19/24 10/19/24 History (2.5 mg base)/3 mL nebulization soln lidocaine 4 % topical patch 1 patch topical DAILY 10/19/24 10/19/24 History losartan 25 mg tablet 25 mg PO DAILY 10/19/24 10/19/24 History melatonin 3 mg tablet 6 mg PO HS 10/19/24 10/19/24 History naloxone 4 mg/actuation nasal spray 4 mg intranasal UD PRN Opioid 10/19/24 10/19/24 History Overdose nicotine 14 mg/24 hr daily 1 patch transdermal DAILY 10/19/24 10/19/24 History transdermal patch ondansetron 4 mg disintegrating 4 mg PO Q6H PRN NAUSEA OR VOMITING 10/19/24 10/19/24 History tablet oxycodone 20 mg tablet,crush 20 mg PO Q12H 10/19/24 10/19/24 History resistant,extended release 12 hr oxycodone 5 mg tablet 5 mg PO Q4 PRN PAIN 4-6 10/19/24 10/19/24 History pantoprazole 40 mg tablet,delayed 40 mg PO HS 10/19/24 10/19/24 History release pioglitazone 15 mg tablet (Actos) 15 mg PO BIDM 10/19/24 10/19/24 History polyethylene glycol 3350 17 17 g PO QDL PRN Constipation 10/19/24 10/19/24 History gram/dose oral powder (Miralax) sennosides 8.6 mg-docusate sodium 1 tab-cap PO QDL PRN Constipation 10/19/24 10/19/24 History 50 mg tablet (Senokot-S) vancomycin 1.25 gram intravenous 1,250 mg IV QDL 10/19/24 10/19/24 History solution bumetanide 1 mg tablet 1 mg PO BID 10/20/24 History oxycodone 5 mg tablet 10 mg PO Q4H PRN PAIN 7-10 10/20/24 10/20/24 History Patient History Surgical History (Updated 10/24/24 @ 09:07 by Lashawn Machuca RN) S/P debridement (10/24/24) Sacral Debridement and Bone Biopsy(Not Applicable) - Ariel Mcclellan DO Social History Smoking Status: Former smoker Hx Alcohol Use: Yes Alcohol type: beer Hx Substance Use: No Preferred Language: Botswanan Communication Ability: Effective Logistics Associate Required: No Beliefs That Will Affect Care: None Current Living Situation: Rehab Other Information That Helps Us Care for You: No Feels Safe at Home: Yes Safety Concerns: Feels Safe At This Time Assistive Devices: Denture - Upper, Denture - Lower, Glasses, Hospital Bed, Oxygen - Continuous and Walker Review of Systems Review of Systems: All systems reviewed & are unremarkable except as noted in HPI & below Physical Exam Physical Exam: General: Comfortable, frail HEENT: Sclerae anicteric Lungs: Decreased breath sounds at bases bilaterally. Cardiac: Regular rate and rhythm, no murmurs. No JVD Vascular: 2+ radial Abdomen: Soft, nontender Extremities: Well perfused, trace bilateral edema Psych: Alert orient x3, normal affect and mood Results & Data Vital Signs (Past 12 Hours) Vital Signs Temp Pulse Pulse Resp BP Pulse Ox O2 Del Method 10/25/24 11:22 Nasal Cannula 10/25/24 11:16 97.9 F 86 18 113/64 99 Nasal Cannula 10/25/24 10:38 85 10/25/24 07:55 97.5 F L 95 H 18 121/54 L 94 Nasal Cannula 10/25/24 03:20 98.1 F 89 18 132/65 99 Nasal Cannula O2 Flow Rate 10/25/24 11:22 4 10/25/24 11:16 4.0 10/25/24 10:38 10/25/24 07:55 4.0 10/25/24 03:20 2 PG Care Time/CCT Total # of Minutes Spent Total Time Spent with Patient: Total time spent is greater than 50% in coordination of care (as documented) at patient's floor/unit and/or counseling patient: Coding Level of Care Code 52279 INT INP/OBS CARE 3/75MIN Diagnoses Right atrial mass I51.89
[2024-10-26 04:45] LABS: Hematocrit (blood only) 22.6 % (42.0-52.0); Hemoglobin 7.2 g/dl (14.0-18.0)
--- NOTE | 2024-10-26 04:47 | Communication Note ---
Date of Service: October 26, 2024 Was contacted by RN after noting that patient had a large pool of blood that was bright red under him. On arrival to bedside, patient was found to be awake alert and oriented, calm, in no acute distress. Patient states that when he was passing flatus he felt a small gush coming from his rectal area. There was a small pool of bright red blood accumulated in patient's lap and sheets surrounding patient also had some bright red blood. when patient was turned on his side, there was a medium-large sized clot underneath him and there was a small stream of bright red blood coming from the rectal area. At the time, patient was not feeling pain, abdominal discomfort, nausea, diarrhea, chest pain, shortness of breath, palpitations, etc. Vital signs 1 hour before RN had contacted me showed a systolic blood pressure in the 120s and diastolic in the 60s. Repeat vital signs showed decreased blood pressure of 95/57 with associated tachycardia. 30 minutes later, blood pressure was lower at 85/51 also with associated tachycardia. Exam without abdominal tenderness or distention on palpation and no peritoneal signs. Large sacral wound without active bleeding or obvious exudates. Large inguinal hernia and Valentine catheter in place. Rest of exam overall unremarkable. Heparin drip, which patient was placed on due to noted clot on echocardiogram, was stopped and stat H&H was ordered. Blood consent was obtained and placed in patient's physical chart. H&H showing Hgb of 7.2, which when in the setting of likely active bleed plus present hypotension and tachycardia, meets criteria for transfusion. Type and cross of 2 units of PRBC which will transfuse now. Due to hypotension, will give both transfusion and LR bolus together since patient has a PIV and a PICC. I did contact on-call GI to notify of patient's current presentation, and recommended stabilization of hemoglobin if low and maintaining adequate blood pressures with fluids or PRBC transfusion. If patient were to deteriorate further would contact GI for likely intervention, otherwise will reassess later in the morning. Will continue close monitoring with [id number] vitals. Resident Activity Tracking Resident Involvement: Resident Care Provided Care Provided: [facility] Medicine
[2024-10-26] MEDS ORDERED: SODIUM CHLORIDE 0.9% 100 ML IV PRN ×7 (04:48→19:33)
[2024-10-26 05:02] LABS: Creatinine Clr Calc Pharmacy 87.2 ml/min
[2024-10-26 05:15] LABS: ANTI-Xa, UFH(UnfractionatedHep 0.11 IU/ml (0.3-0.7)
[2024-10-26] MEDS: LACTATED RINGER'S 1,000 ML IV ONE (05:35)
--- NOTE | 2024-10-26 06:55 | Gastroenterology Progress Note ---
Date of Service October 26, 2024 Assessment & Plan (1) Hematochezia: Plan: Recurrent lower GI bleeding bleed diverticular based on sigmoidoscopy findings. Suspect aggravated by anticoagulation. Hypotensive but asymptomatic. Agree with holding heparin and transfusing blood. Will reassess later today to determine need for urgent colonoscopy. If continued bleeding and persistent hypotension recommend transferring to ICU and proceed with CT angiography to bet ter localize bleeding. Admission and Anticipated Discharge Date Admission Date: October 20, 2024 Subjective Episodes of hematochezia over the night. Has some mild left lower quadrant. Denies shortness of breath or chest pain. Physical Exam Physical Exam: No acute distress Respiratory rate regular Cardiac rhythm regular Abdomen soft mild left lower quadrant tenderness no rebound no guarding Results & Data Results & Data Vital Signs (Past 12 Hours) Vital Signs Temp Pulse Pulse Pulse Resp BP BP 10/26/24 06:26 36.8 C 108 H 16 96/60 L 10/26/24 05:56 36.8 C 106 H 18 88/52 L 10/26/24 05:41 36.8 C 111 H 18 82/53 L 10/26/24 05:20 36.9 C 126 H 18 71/46 L 10/26/24 05:13 105 H 79/48 L 10/26/24 04:37 85/51 L 10/26/24 04:23 36.5 C 125 H 18 95/57 L 10/26/24 03:17 36.6 C 96 H 20 125/64 10/25/24 23:03 36.6 C 96 H 20 106/51 L 10/25/24 22:00 101 H 10/25/24 20:00 10/25/24 19:52 36.5 C 98 H 19 119/72 Pulse Ox O2 Del Method O2 Flow Rate 10/26/24 06:26 95 10/26/24 05:56 99 4 10/26/24 05:41 99 4 10/26/24 05:20 99 4 10/26/24 05:13 10/26/24 04:37 10/26/24 04:23 95 Oxymask 4 10/26/24 03:17 99 Nasal Cannula 4 10/25/24 23:03 97 Nasal Cannula 4 10/25/24 22:00 10/25/24 20:00 Nasal Cannula 4 10/25/24 19:52 100 Nasal Cannula 4 Laboratory Results Laboratory Results - last 48 hr 10/24/24 10/24/24 10/24/24 06:19 06:31 09:07 WBC 7.51 RBC 3.31 L Hgb 8.9 L Hct 27.8 L MCV 84.0 MCH 26.9 MCHC 32.0 RDW Std Deviation 58.1 H RDW Coeff of Arnulfo 19.2 H Plt Count 287 MPV 9.7 Heparin Anti-Xa, Unfract Sodium 138 Potassium 4.0 Chloride 100 Carbon Dioxide 34 H Anion Gap 4 BUN 33 H Creatinine 0.78 Est Cr Clr Drug Dosing 91.3 eGFR 90.71 BUN/Creatinine Ratio 42.3 H Glucose 103 H POC Glucose 145 H Calcium 8.9 B-Natriuretic Peptide Random Vancomycin Crossmatch See Detail 10/24/24 10/24/24 10/24/24 11:15 16:04 21:02 WBC RBC Hgb Hct MCV MCH MCHC RDW Std Deviation RDW Coeff of Arnulfo Plt Count MPV Heparin Anti-Xa, Unfract Sodium Potassium Chloride Carbon Dioxide Anion Gap BUN Creatinine Est Cr Clr Drug Dosing eGFR BUN/Creatinine Ratio Glucose POC Glucose 133 H 193 H 189 H Calcium B-Natriuretic Peptide Random Vancomycin Crossmatch 10/25/24 10/25/24 10/25/24 00:36 07:17 07:20 WBC 8.77 RBC 2.96 L Hgb 8.1 L Hct 24.7 L MCV 83.4 MCH 27.4 MCHC 32.8 RDW Std Deviation 58.3 H RDW Coeff of Arnulfo 19.3 H Plt Count 277 MPV 9.1 L Heparin Anti-Xa, Unfract 0.17 L 0.38 Sodium 136 Potassium 4.1 Chloride 99 Carbon Dioxide 35 H Anion Gap 2 L BUN 27 H Creatinine 0.66 Est Cr Clr Drug Dosing 108.3 eGFR 95.41 BUN/Creatinine Ratio 40.9 H Glucose 141 H POC Glucose 145 H Calcium 8.7 B-Natriuretic Peptide 250 H Random Vancomycin Crossmatch 10/25/24 10/25/24 10/25/24 08:57 11:18 16:15 WBC RBC Hgb Hct MCV MCH MCHC RDW Std Deviation RDW Coeff of Arnulfo Plt Count MPV Heparin Anti-Xa, Unfract Sodium Potassium Chloride Carbon Dioxide Anion Gap BUN Creatinine Est Cr Clr Drug Dosing eGFR BUN/Creatinine Ratio Glucose POC Glucose 158 H 97 Calcium B-Natriuretic Peptide Random Vancomycin 18.5 Crossmatch 10/25/24 10/26/24 20:43 04:29 WBC RBC Hgb 7.2 L Hct 22.6 L MCV MCH MCHC RDW Std Deviation RDW Coeff of Arnulfo Plt Count MPV Heparin Anti-Xa, Unfract 0.11 L Sodium Potassium Chloride Carbon Dioxide Anion Gap BUN Creatinine 0.82 Est Cr Clr Drug Dosing 87.2 eGFR 89.36 BUN/Creatinine Ratio Glucose POC Glucose 116 H Calcium B-Natriuretic Peptide Random Vancomycin Crossmatch PG Care Time/CCT Total # of Minutes Spent Total Time Spent with Patient: Total time spent is greater than 50% in coordination of care (as documented) at patient's floor/unit and/or counseling patient: Coding Level of Care Code 84726 SUB INP/OBS CARE 3/50MIN Diagnoses Hematochezia K92.1
[2024-10-26 08:52] LABS: BUN Creatinine Ratio 34.7 (10-20); Calcium 8.4 mg/dl (8.6-10.3); Creatinine Clr Calc Pharmacy 92.1 ml/min; Potassium 4.7 mmol/L (3.5-5.1)
[2024-10-26] MEDS: OPTIRAY 320 125ml IV ONE (09:31)
[2024-10-26] MEDS: LANTUS PER UNIT CHARGE SC SCH (09:56)
--- NOTE | 2024-10-26 10:13 | Consultation ---
Date of Consultation October 26, 2024 Assessment & Plan (1) Lumbar compression fracture: Dr. Garcia has reviewed imaging and treatment plan. Treatment is very conservative in light of his acute and multiple medical comorbidities. Ambulate ad amari. Continue with current infectious disease recommendations and IV antibiotic therapy regarding his discitis/osteomyelitis. No acute surgical intervention recommended at this time. History of Present Illness Reason for Consultation: Compression fractures Attending Physician: Elin Reyes MD History of Present Illness 79-year-old gentleman with significant multiple acute medical comorbidities that we are asked to see in consultation regarding compression fractures of his lumbar spine. Also has known discitis/osteomyelitis of the lumbar spine and recent sacral decubitus ulcer debridement by Dr. Mcclellan on October 24. He has been admitted to [facility] since October 19, 2024. Prior to this in late August for several weeks [facility] with known L1 and L2 compression fractures, discitis, heart failure, reactal bleeding. Neurosurgery and infectious disease were consulted during PH stay.. PICC line and IV antibiotics were recommended at that time. During this patient's hospital stay gastroenterology as well as cardiology has also been consulted. There is a concern today for acute rectal bleed as well. Allergies Allergy/AdvReac Type Severity Reaction Status Date / Time No Known Allergies Allergy Verified 10/24/24 06:51 Home Medications Medication Instructions Recorded Confirmed Type acetaminophen 325 mg tablet 650 mg PO Q4 PRN PAIN 1-3 10/19/24 10/19/24 History acetaminophen 500 mg tablet 500 mg PO Q4 PRN TEMP > OR = 100.5 10/19/24 10/19/24 History atorvastatin 10 mg tablet 10 mg PO HS 10/19/24 10/19/24 History calcium carbonate 500 mg PO Q8 PRN Indigestion 10/19/24 10/19/24 History ceftriaxone 2 gram solution for 2,000 mg IV .QDL 10/19/24 10/19/24 History injection docusate sodium 100 mg capsule 100 mg PO .Q12 HR PRN Constipation 10/19/24 10/19/24 History (Colace) empagliflozin 25 mg tablet 25 mg PO QAM 10/19/24 10/19/24 History (Jardiance) ipratropium 0.5 mg-albuterol 3 mg 3 ml inhalation TID 10/19/24 10/19/24 History (2.5 mg base)/3 mL nebulization soln lidocaine 4 % topical patch 1 patch topical DAILY 10/19/24 10/19/24 History losartan 25 mg tablet 25 mg PO DAILY 10/19/24 10/19/24 History melatonin 3 mg tablet 6 mg PO HS 10/19/24 10/19/24 History naloxone 4 mg/actuation nasal spray 4 mg intranasal UD PRN Opioid 10/19/24 10/19/24 History Overdose nicotine 14 mg/24 hr daily 1 patch transdermal DAILY 10/19/24 10/19/24 History transdermal patch ondansetron 4 mg disintegrating 4 mg PO Q6H PRN NAUSEA OR VOMITING 10/19/24 10/19/24 History tablet oxycodone 20 mg tablet,crush 20 mg PO Q12H 10/19/24 10/19/24 History resistant,extended release 12 hr oxycodone 5 mg tablet 5 mg PO Q4 PRN PAIN 4-6 10/19/24 10/19/24 History pantoprazole 40 mg tablet,delayed 40 mg PO HS 10/19/24 10/19/24 History release pioglitazone 15 mg tablet (Actos) 15 mg PO BIDM 10/19/24 10/19/24 History polyethylene glycol 3350 17 17 g PO QDL PRN Constipation 10/19/24 10/19/24 History gram/dose oral powder (Miralax) sennosides 8.6 mg-docusate sodium 1 tab-cap PO QDL PRN Constipation 10/19/24 10/19/24 History 50 mg tablet (Senokot-S) vancomycin 1.25 gram intravenous 1,250 mg IV QDL 10/19/24 10/19/24 History solution bumetanide 1 mg tablet 1 mg PO BID 10/20/24 History oxycodone 5 mg tablet 10 mg PO Q4H PRN PAIN 7-10 10/20/24 10/20/24 History Patient History Surgical History S/P debridement (10/24/24) Sacral Debridement and Bone Biopsy(Not Applicable) - Ariel Mcclellan, Social History Smoking Status: Former smoker Hx Alcohol Use: Yes Alcohol type: beer Hx Substance Use: No Preferred Language: Irish Communication Ability: Effective Search Consultant Required: No Beliefs That Will Affect Care: None Current Living Situation: Rehab Other Information That Helps Us Care for You: No Feels Safe at Home: Yes Safety Concerns: Feels Safe At This Time Assistive Devices: Denture - Upper, Denture - Lower, Glasses, Hospital Bed, Oxygen - Continuous and Walker Review of Systems Review of Systems: All systems reviewed & are unremarkable except as noted in HPI & below Results & Data Vital Signs (Past 12 Hours) Vital Signs Temp Pulse Pulse Pulse Resp BP BP 10/26/24 09:16 36.9 C 10/26/24 09:00 103/60 10/26/24 08:57 102 H 22 10/26/24 08:55 87/58 L 10/26/24 06:26 36.8 C 108 H 16 96/60 L 10/26/24 05:56 36.8 C 106 H 18 88/52 L 10/26/24 05:41 36.8 C 111 H 18 82/53 L 10/26/24 05:20 36.9 C 126 H 18 71/46 L 10/26/24 05:13 105 H 79/48 L 10/26/24 04:37 85/51 L 10/26/24 04:23 36.5 C 125 H 18 95/57 L 10/26/24 03:17 36.6 C 96 H 20 125/64 10/25/24 23:03 36.6 C 96 H 20 106/51 L Pulse Ox O2 Del Method O2 Flow Rate 10/26/24 09:16 10/26/24 09:00 10/26/24 08:57 100 4 10/26/24 08:55 10/26/24 06:26 95 10/26/24 05:56 99 4 10/26/24 05:41 99 4 10/26/24 05:20 99 4 10/26/24 05:13 10/26/24 04:37 10/26/24 04:23 95 Oxymask 4 10/26/24 03:17 99 Nasal Cannula 4 10/25/24 23:03 97 Nasal Cannula 4 Diagnostic Findings [facility] [place] [phone] CT Scan Report Patient: MALATHI RIVERS Admit Date: 10/20/24 MR#: [id number] Address1: [address] Acct ID:[id number] Address2: Date: 1945 [facility] Zip: [place] [address] Age: 79 Location: 2S Sex: M Room/Bed: [facility] Att Phy: Elin Reyes MD Diagnosis: GI BLEED Bettie Phy: Caden Roblero DO Service Date: 10/25/24 Fam Phy: Interpreting Phy: [facility]: Mark Baer MD Ordering Phy: Shaye Prince PA-C cc: ~ LUMBAR SPINE CT WITHOUT CONTRAST CLINICAL HISTORY: reveal compression fx vs bony destruction L1-L2 COMPARISON STUDY: CTA of the abdomen and pelvis October 20, 2024. TECHNIQUE: Axial images of the lumbar spine were obtained without IV contrast. Sagittal and coronal reformats were viewed. A dose lowering technique was uti lized adhering to the principles of ALARA. FINDINGS: Please note that the chest CT will be reported separately. Bilateral pleural effusions are better depicted on that exam. For purposes of numbering on this exam, the L5-S1 disc space is assigned to axial image 337 of [id number]. There is mild lumbar spine levoscoliosis. A severe L2 compression fractures unchanged in appearance since CT of October 20, 2024. There is extensive bony erosion involving the inferior endplate of the L1 vertebral body with 80% loss of vertebral body height. Bony fragmentation is noted. A 1 cm bone fragment within the canal r epresents a retropulsed bone fragment which results in severe central canal stenosis. This is unchanged. There is also a fracture involving the superior plate of L2, unchanged appearance. This results in 60% loss of vertebral body height. There is no retropulsion at this level. There are healing fractures of the right transverse process of L1 and the bilateral transverse processes of L2 as well as the posterior bilateral 12th ribs. Mild paravertebral edema at the L1-L2 level is present. No definitive osseous lesion is identified. Central canal and neural foramen are suboptimally assessed given CT technique. Moderate disc space narrowing, endplate osteophytosis and facet arthrosis within the lumbar spine is present. A 3.3 cm infrarenal abdominal aortic aneurysm is incidentally noted. IMPRESSION: 1. Severe L1 and L2 compression fractures, unchanged in appearance since CT of October 20, 2024. Extensive bony erosion involving the inferior endplate of L1 with an associated 1 cm retropulsed bone fragment at the L1 level which results in severe central canal stenosis, unchanged. Although age indeterminate, subacute fractures are favored. No CT evidence for underlying malignancy. Although fractures and bony erosion centered at the L1-L2 level, the findings are not highly suggestive of discitis/osteomyelitis although correlation with evidence for an infectious process is recommended. 2. Healing fractures of the right transverse process of L1, bilateral L2 transverse processes and posterior 12th ribs. 3. Moderate multilevel degenerative disc disease and facet arthrosis within the lumbar spine. 4. Mild lumbar spine levoscoliosis. ACT 112: Negative or not required by law. Electronically signed by: Terry Tanner M.D. 10/25/2024 12:12 PM Dictated: 10/25/24 1159 Transcribed: 10/25/24 1200
[2024-10-26] MEDS ORDERED: Nursing to Pharmacy Communication SCH ×3 (10:15→18:00)
--- NOTE | 2024-10-26 10:20 | Critical Care Consultation ---
Date of Consultation October 26, 2024 Assessment & Plan (1) GI bleed: (2) Discitis: (3) Type 2 diabetes mellitus: (4) (HFpEF) heart failure with preserved ejection fraction: (5) Anemia: (6) Osteomyelitis of sacrum: (7) Right atrial mass: (8) Lumbar compression fracture: (9) Hematochezia: Plan Reason Critically Ill: Patient is a 79-year-old male with discitis and sacral osteomyelitis concerning for ESBL and Pseudomonas who developed a GI bleed overnight after being placed on heparin drip after findings of RIGHT atrial thrombus. NEURO - * CAM ICU: NEGATIVE initially * Sedation: Versed * Pain: Fentanyl CARDIAC/VASCULAR - * RIGHT atrial thrombus: * Likely secondary to RIGHT upper extremity PICC line. * Patient initially started on heparin drip. Unfortunately, she developed impressive lower GI bleed overnight necessitating PRBC resuscitation. * Given that the patient has failed conservative measures in the form of stabilization of clot with eventual resolution, the patient likely needs transfer to higher level of care with interventional radiology with the potential for thrombectomy and/or clot retrieval. * Initially reached out to [facility], as this is where his initial management was performed and his preference, and spoke to a nurse practitioner in the medical ICU who declined transfer and recommend speaking with interventional radiology. I spoke with interventional radiology and provided my concerns. He recommended pulling the catheter a nd then transferring the patient if he were to decompensate from a cardiopulmonary perspective. I did express my concerns with this given the fact that our only intervention if the patient were to significantly decompensate from a clot burden would be for thrombolytic therapy which would be contraindicated in a patient with active GI bleeding. The provider reiterated that they would do nothing different. At this point, as the patient is currently hemodynamically stable, I did reach out to hospitalist and recommend reach out to tertiary care facility for transfer to higher level of care. I did confirm that cardiology also agrees that transfer with an institution with high-level IR capabilities would be warranted at this time. * Hypotension: * Secondary to acute blood loss. * Was contacted by nurses and informed that the patient was now having bright red blood output from his rectum. I presented to the room with nurse providing compression to the anus which was slowing the bleeding. We did have an extensive conversation with the patient regarding care moving forward. He and his partner were present at the time of discussion and they agree that they would want aggressive management and attempt to try and resuscitate. He verbally consents to central venous access, arterial access, and intubation. Additionally, he consents to endoscopic procedures as well. * Massive transfusion protocol was instituted after initial 2 units of blood did not give significant response. Patient also requiring vasopressor support in the form of Levophed and Kian-Synephrine. He received cryst alloid resuscitation as well. Patient also received FFP. * GI to scope the patient for hopeful control of bleeding. * Monitor on telemetry. RESPIRATORY - * Intubated preemptively given need for endoscopy and transfer: * Prior to intubation, the patient was saturating well on 2 L nasal cannula. * Chest CT was reviewed which demonstrated small bilateral pleural effusions with atelectasis. Additionally, emphysematous changes were appreciated. * Patient intubated and sedated. Wean ventilator settings as able. GI/NUTRITION - * GI bleed: * Lower GI bleed likely in the setting of diverticular bleed versus proctitis with brisk bleeding. Patient actively exsanguinating. Aggressive resuscitation measures as described above. GI medicine consulted and will perform endoscopy at bedside after intubation. Plan will be for transfer to higher level of care after assessment of the patient's GI tract. * Prophylaxis: Protonix twice daily. Uncertain of the utility of other medications given this is largely lower GI in source. RENAL/LYTES - * No significant electrolyte derangements. - * Valentine in place - Strict I&Os. ENDO - * DMII * BSGs per unit protocol. ISS --> gtt per unit policy. HEME - * Lower GI hemorrhage: * Patient with active exsanguination from the lower GI tract. Bright red blood appreciated pouring from the patient's rectum. Initially received 2 units PRBC without significant improvement. Massive transfusion protocol instituted for appropriate resuscitation of products. * Unfortunately, this certainly is complicated in a patient with RIGHT atrial clot and risk for increasing clot burden and subsequent cardiopulmonary consequences. Will be cautious with resuscitation with coagulation products/medications. ID - * Discitis/osteomyelitis/wound infections: * Positive for ESBL E. coli as well as Pseudomonas. * Currently on meropenem and vancomycin per ID management. LINES/IV ACCESS - * PIVs x1 * RIGHT upper extremity PICC * LEFT groin Cordis catheter * LEFT groin femoral arterial line * Valentine catheter * Endotracheal tube DVT PROPHYLAXIS - * Hold on DVT prophylaxis secondary to GI hemorrhage. * SCDs I have personally spent 120 minutes of critical care time in the direct management of this patient. This is a life/limb threatening event. This includes time spent evaluating patient, direct bedside care, chart review, placing orders, interpretation of diagnostic studies, discussion with consultants, patient, and family members, as well as other required patient management activities. This time is exclusive of all separately billable procedures, and teaching time and separate from and in addition to any other critical care service time. Thank you for allowing us to participate in the care of this patient. Please refer to my attending physician's documentation for any further recommendations. Supervising Physician Co-Signing Physician Notes Patient seen and examined on multiple occasions with and without the [facility]. EMR was independently reviewed and discussed with multiple consultants including general surgery and GI. Agree with assessment plan as noted. Patient has multiple issues which necessitate transfer from our facility. These include in no particular order: 1. Lower GI bleed potentially needing angiography or advanced GI intervention, 2. 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 Extensive right atrial thrombus associated with the PICC line measuring over 6 cm likely requiring long-term anticoagulation which is impossible given the patient's current GI bleeding issues and may necessitate IR guided catheter based thrombectomy. The patient arrived unstable. He was aggressively resuscitated. Femoral resuscitation lines and arterial lines were placed. He was aggressively resuscitated. He has had 9 units of packed red blood cells as well as multiple liters of crystalloid. He appears to be volume responsive but did require initiation of vasopressors, initially Kian-Synephrine and then due to bradycardia was transitioned to norepinephrine. Due to concern about his hemodynamic status and need for procedures, he was intubated. Discussed with GI. Repeat endoscopy was performed revealing a bleeding source at the rectum. They were unable to inject or place a hemostatic clip. He is required approximately 8 units of packed cells through rapid transfuser. Fortunately his coagulation status has remained stable. We have been unable to address at all of the right atrial thrombus. We are awaiting formal surgical opinion currently. Have discussed with [facility] who tentatively agreed to accept the patient in transfer however there was some deliberation on their end regarding appropriateness of medical ICU versus surgical ICU and which subspecialist might be necessary to be integrated into his care. Weather may be somewhat problematic getting the patient out. Will continue intubation and pressor support pending definitive therapy. A total of 270 minutes in critical care time was spent in evaluation management coordination of care for this critically ill patient with multiple medical comorbidities and life-threatening illness History of Present Illness Reason for Consultation: GI bleed, hypotension Requesting Physician: Dr. Reyes Attending Physician: Elin Reyes MD History of Present Illness Patient is an unfortunate 79-year-old male with a significant past medical history of type 2 diabetes, heart failure with preserved ejection fraction, and recent diagnosis of discitis who was admitted to this institution on 10/19 in the setting of lower GI bleeding. The patient was also found to have multiple pressure ulcers in different stages along his back and LEFT heel. He underwent upper and lower endoscopies early in the admission on 10/20 with findings of es ophagitis and sequela of diverticular bleed. The bleeding had seemed to resolve and the patient eventually underwent debridement of wounds on his back on 10/24. Wound cultures were positive for ESBL E. coli, Pseudomonas, and Bacteroides. He was placed on meropenem and vancomycin. The patient had an echocardiogram performed yesterday on 10/24 which demonstrated large 5.3 x 0.8 cm hypermobile mass in the RIGHT atrium that partially prolapses across the tricuspid valve. Findings concerning for thrombus or less likely vegetation. Patient was started on heparin drip given likelihood of thrombus versus vegetation. Unfortunately, the patient developed lower GI bleeding in the shop assistant hours and has been passing large amounts of clots since. The heparin drip was discontinued. He received 1 unit PRBC and was subsequently transferred to the ICU for monitoring evaluation. Patient had some transient hypotension, which resolved with transfusion. Upon evaluation in room 110, the patient is awake, alert, and oriented. He describes pain in his back which has been constant for the last few months. He offers no complaints of chest pain, palpitations, dizziness, lightheadedness, or presyncope. He has pain in the RIGHT sided lower abdomen and scrotal area which is unchanged. Allergies Allergy/AdvReac Type Severity Reaction Status Date / Time No Known Allergies Allergy Verified 10/24/24 06:51 Home Medications Medication Instructions Recorded Confirmed Type acetaminophen 325 mg tablet 650 mg PO Q4 PRN PAIN 1-3 10/19/24 10/19/24 History acetaminophen 500 mg tablet 500 mg PO Q4 PRN TEMP > OR = 100.5 10/19/24 10/19/24 History atorvastatin 10 mg tablet 10 mg PO HS 10/19/24 10/19/24 History calcium carbonate 500 mg PO Q8 PRN Indigestion 10/19/24 10/19/24 History ceftriaxone 2 gram solution for 2,000 mg IV .QDL 10/19/24 10/19/24 History injection docusate sodium 100 mg capsule 100 mg PO .Q12 HR PRN Constipation 10/19/24 10/19/24 History (Colace) empagliflozin 25 mg tablet 25 mg PO QAM 10/19/24 10/19/24 History (Jardiance) ipratropium 0.5 mg-albuterol 3 mg 3 ml inhalation TID 10/19/24 10/19/24 History (2.5 mg base)/3 mL nebulization soln lidocaine 4 % topical patch 1 patch topical DAILY 10/19/24 10/19/24 History losartan 25 mg tablet 25 mg PO DAILY 10/19/24 10/19/24 History melatonin 3 mg tablet 6 mg PO HS 10/19/24 10/19/24 History naloxone 4 mg/actuation nasal spray 4 mg intranasal UD PRN Opioid 10/19/24 10/19/24 History Overdose nicotine 14 mg/24 hr daily 1 patch transdermal DAILY 10/19/24 10/19/24 History transdermal patch ondansetron 4 mg disintegrating 4 mg PO Q6H PRN NAUSEA OR VOMITING 10/19/24 10/19/24 History tablet oxycodone 20 mg tablet,crush 20 mg PO Q12H 10/19/24 10/19/24 History resistant,extended release 12 hr oxycodone 5 mg tablet 5 mg PO Q4 PRN PAIN 4-6 10/19/24 10/19/24 History pantoprazole 40 mg tablet,delayed 40 mg PO HS 10/19/24 10/19/24 History release pioglitazone 15 mg tablet (Actos) 15 mg PO BIDM 10/19/24 10/19/24 History polyethylene glycol 3350 17 17 g PO QDL PRN Constipation 10/19/24 10/19/24 History gram/dose oral powder (Miralax) sennosides 8.6 mg-docusate sodium 1 tab-cap PO QDL PRN Constipation 10/19/24 10/19/24 History 50 mg tablet (Senokot-S) vancomycin 1.25 gram intravenous 1,250 mg IV QDL 10/19/24 10/19/24 History solution bumetanide 1 mg tablet 1 mg PO BID 10/20/24 History oxycodone 5 mg tablet 10 mg PO Q4H PRN PAIN 7-10 10/20/24 10/20/24 History Patient History Surgical History S/P debridement (10/24/24) Sacral Debridement and Bone Biopsy(Not Applicable) - Ariel Mcclellan, Social History Smoking Status: Former smoker Hx Alcohol Use: Yes Alcohol type: beer Hx Substance Use: No Preferred Language: Colombian Communication Ability: Effective Clinical Quality Rn Required: No Beliefs That Will Affect Care: None Current Living Situation: Rehab Other Information That Helps Us Care for You: No Feels Safe at Home: Yes Safety Concerns: Feels Safe At This Time Assistive Devices: Denture - Upper, Denture - Lower, Glasses, Hospital Bed, Oxygen - Continuous and Walker Review of Systems Review of Systems: A complete 10 point review of systems was reviewed with the patient with pertinent positives and negatives as per history of present illness. All else were negative. Physical Exam Physical Exam: VITAL SIGNS - Vital signs and nursing notes were reviewed. GENERAL - 79-year-old male appearing his stated age who is in no acute distress. Communicates well with provider and answers questions appropriately. SKIN - Wound dressings to the LEFT heel and multiple sites on the back are clean, dry, and intact HEAD - NC/AT. EYES - PERRL with EOMI bilaterally. Sclera anicteric. NOSE - Midline and without cyanosis. MOUTH/OROPHARYNX - Without perioral cyanosis. NECK - Neck with FROM. LUNGS -diminished breath sounds at the bases. No wheezes CARDIAC - RRR with S1/S2. No murmur, rubs, or gallops appreciated. ABDOMEN -abdomen flat with large RIGHT sided inguinal hernia. EXTREMITIES -dressing in place to the LEFT-sided heel. NEUROLOGIC - Cranial nerves II through XII grossly intact. Sensory intact to light touch throughout. Patellar reflexes +2/4. PSYCH - A&Ox3 and cooperates fully with examiner. Pt is very pleasant and interacts well with examiner. Results & Data Results & Data Vital Signs (Past 12 Hours) Vital Signs Temp Pulse Pulse Pulse Resp BP BP 10/26/24 09:16 36.9 C 10/26/24 09:00 103/60 10/26/24 08:57 102 H 22 10/26/24 08:55 87/58 L 10/26/24 06:26 36.8 C 108 H 16 96/60 L 10/26/24 05:56 36.8 C 106 H 18 88/52 L 10/26/24 05:41 36.8 C 111 H 18 82/53 L 10/26/24 05:20 36.9 C 126 H 18 71/46 L 10/26/24 05:13 105 H 79/48 L 10/26/24 04:37 85/51 L 10/26/24 04:23 36.5 C 125 H 18 95/57 L 10/26/24 03:17 36.6 C 96 H 20 125/64 10/25/24 23:03 36.6 C 96 H 20 106/51 L 10/25/24 22:00 101 H Pulse Ox O2 Del Method O2 Flow Rate 10/26/24 09:16 10/26/24 09:00 10/26/24 08:57 100 4 10/26/24 08:55 10/26/24 06:26 95 10/26/24 05:56 99 4 10/26/24 05:41 99 4 10/26/24 05:20 99 4 10/26/24 05:13 10/26/24 04:37 10/26/24 04:23 95 Oxymask 4 10/26/24 03:17 99 Nasal Cannula 4 10/25/24 23:03 97 Nasal Cannula 4 10/25/24 22:00 Coding Level of Care Code 01531 CRITICAL CARE EA ADD 30M Diagnoses GI bleed K92.2 GI bleed type/associated pathology: unspecified gastrointestinal hemorrhage type Discitis M46.40 Type 2 diabetes mellitus E11.9 (HFpEF) heart failure with preserved ejection fraction I50.30 Anemia D62 Anemia type: other cause Other causes of anemia: acute posthemorrhagic Osteomyelitis of sacrum M46.28 Right atrial mass I51.89 Lumbar compression fracture S32.000A Hematochezia K92.1 (1) GI bleed GI bleed type/associated pathology: unspecified gastrointestinal hemorrhage type Qualified Code(s): K92.2 - Gastrointestinal hemorrhage, unspecified (5) Anemia Anemia type: other cause Other causes of anemia: acute posthemorrhagic Qualified Code(s): D62 - Acute posthemorrhagic anemia
--- NOTE | 2024-10-26 10:23 | CT Scan Report ---
CT ANGIOGRAPHY OF THE ABDOMEN CLINICAL HISTORY: TIA bleed, hypotension. COMPARISON STUDY: CTA of the abdomen and pelvis October 21, 2024. Chest CT October 25, 2024. TECHNIQUE: Helical axial images of the abdomen and pelvis were obtained during arterial phase followi ng intravenous injection of 115 cc Optiray 320 IV. Sagittal and coronal reformats were viewed. A dose lowering technique was utilized adhering to the principles of ALARA. FINDINGS: Body wall edema is incidentally noted. Visualized portions of bilateral pleural effusions a nd extensive bilateral lower lobe airspace opacities are similar to chest CT of October 25, 2024. Lower lobe moderate loss is present. No pneumatosis, free air or portal venous gas within the abdomen is pr esent. There are gallstones within the gallbladder. There is no evidence for acute cholecystitis. Art erial phase images of the liver, spleen, right adrenal gland and pancreas are unremarkable. Is no artemio iary or pancreatic ductal dilatation. Left adrenal nodularity is of doubtful significance. The calibe r and wall thickness of visualized small and large bowel are normal. There is a moderate amount of st ool within visualized portions of the colon. No intraluminal contrast is identified within visualized portions of the bowel. A 2.5 cm right perirenal hyperdense focus remains unchanged. This is of quest ionable significance. There is no hydronephrosis. There is no abdominal lymphadenopathy. Extensive at herosclerotic plaque within the abdominal aorta is noted. There is a 3.2 cm infrarenal abdominal aort ic aneurysm. The superior mesenteric and inferior mesenteric arteries are patent. The bilateral renal arteries are patent. There is moderate plaque at the origins of the renal arteries without stenosis. There is mild to moderate narrowing of the proximal celiac axis. The configuration favors median arc uate ligament compression. There is mild dilatation of the proximal celiac axis, measuring 1.2 cm. No severe stenosis is identified. Apparent gastric fold thickening is noted. This may be due to underdi stention. Appearance of L1 and L2 compression fractures with vertebral body height loss and retropuls ion at the L1 level remains unchanged. IMPRESSION: 1. Extensive atherosclerotic plaque within the abdominal aorta with a 3.2 cm infrarenal abdominal aor tic aneurysm. 2. Patent SMA and ANJU. Mild to moderate narrowing of the proximal celiac axis, as described above, wi th mild dilatation of the celiac axis. 3. No intraluminal contrast within visualized portions of the bowel. 4. Gastric fold thickening. This is likely due to underdistention although is nonspecific and gastrit is could appear similar. 5. Partially visualize bilateral pleural effusions and extensive bilateral lower lobe airspace opacit ies with volume loss, similar to chest CT of October 25, 2024. 6. No change in appearance of the L1 and L2 compression fractures, as determined above. ACT 112: Negative or not required by law. Electronically signed by: Terry Tanner M.D. 10/26/2024 10:22 AM
[2024-10-26 10:36] LABS: Hematocrit (blood only) 21.6 % (42.0-52.0)
--- NOTE | 2024-10-26 11:07 | Cardiology Progress Note ---
Date of Service October 26, 2024 Assessment & Plan (1) Right atrial mass: Plan: 2. HFpEF 3. L1-L2 compression fractures/? discitis 4. Sacral osteomyelitis 5. GI bleed/Esophagitis/Diverticulosis 6. Anemia 7. Type 2 DM Recurrent GI bleeding with anticoagulation. Persistent bilateral pleural effusions No signs to suggest PE. Complex situation. Now that he has failed trial of anticoagulation feel patient would be better served at higher level facility with potential capabilities for catheter directed therapy for his RA clot either preemptively or if were to develop a PE. Discussed with involved consulting services and primary team. Agree with continuing to hold heparin, antihypertensives. Diuretics when hemodynamically stable. Admission and Anticipated Discharge Date Admission Date: October 20, 2024 Subjective Episodes of hematochezia over the night with hypotension to 70s. Transferred to ICU and transfused additional unit. Hgb down to 7. Has some mild left lower quadrant. Denies shortness of breath or chest pain. Review of Systems Review of Systems: All systems reviewed & are unremarkable except as noted in HPI & below Physical Exam Physical Exam: General: Comfortable, frail HEENT: Sclerae anicteric Lungs: Decreased breath sounds at bases bilaterally. Cardiac: Regular rate and rhythm, no murmurs. No JVD Vascular: 2+ radial Abdomen: Soft, nontender Extremities: Well perfused, trace bilateral edema Psych: Alert orient x3, normal affect and mood Results & Data Vital Signs (Past 12 Hours) Vital Signs Temp Pulse Pulse Pulse Resp BP BP 10/26/24 10:52 98.4 F 90 18 105/58 L 10/26/24 09:16 98.4 F 10/26/24 09:00 103/60 10/26/24 08:57 102 H 22 10/26/24 08:55 87/58 L 10/26/24 06:26 98.2 F 108 H 16 96/60 L 10/26/24 05:56 98.2 F 106 H 18 88/52 L 10/26/24 05:41 98.2 F 111 H 18 82/53 L 10/26/24 05:20 98.4 F 126 H 18 71/46 L 10/26/24 05:13 105 H 79/48 L 10/26/24 04:37 85/51 L 10/26/24 04:23 97.7 F 125 H 18 95/57 L 10/26/24 03:17 97.9 F 96 H 20 125/64 10/25/24 23:03 97.9 F 96 H 20 106/51 L Pulse Ox O2 Del Method O2 Flow Rate 10/26/24 10:52 97 2 10/26/24 09:16 10/26/24 09:00 10/26/24 08:57 100 4 10/26/24 08:55 10/26/24 06:26 95 10/26/24 05:56 99 4 10/26/24 05:41 99 4 10/26/24 05:20 99 4 10/26/24 05:13 10/26/24 04:37 10/26/24 04:23 95 Oxymask 4 10/26/24 03:17 99 Nasal Cannula 4 10/25/24 23:03 97 Nasal Cannula 4 PG Care Time/CCT Total # of Minutes Spent Total Time Spent with Patient: Total time spent is greater than 50% in coordination of care (as documented) at patient's floor/unit and/or counseling patient: Coding Level of Care Code 93593 SUB INP/OBS CARE 3/50MIN Diagnoses Right atrial mass I51.89
[2024-10-26] MEDS: PANTOprazole 40 MG/10 ML SYR IV SCH (11:23)
--- NOTE | 2024-10-26 12:45 | Procedure Note ---
Procedure Note Date of Service October 26, 2024 Procedure: Femoral Central Line Placement - Cordis Attending: Dr. Poole APC: Rc Thornton PA-C Indication: Central Drug Administration, Poor Venous Access, Multiple Lab Draws Necessary, etc. Anesthesia: Lidocaine 1% Prep consent obtained. Emergent consent by the setting of active extremis from exsanguination from lower GI bleeding necessitating aggressive blood product resuscitation, vasopressor support, etc. A time-out was completed verifying correct patient, procedure, site, positioning, and implants(s) or special equipment if applicable. Patient's LEFT groin was cleansed and draped in the typical sterile fashion using Chloraprep. The Femoral Vein and Femoral Artery were identified using ultrasound. The superficial tissue was anesthetized using 4.0 mL of 1% lidocaine without epinephrine under direct visualization with the ultrasound. After adequate an esthetization was achieved, the Femoral Vein was cannulated under direct ultrasound guidance using an introducer needle on a syringe. Good venous blood return was maintained prior to removal of syringe from introducer needle. Using Seldinger Technique, a guide wire was advanced through the introducer needle without resistance. The introducer needle was removed and ultrasound images were obtained of the guide wire within the Femoral Vein and saved to the patient's medical record. A small incision was made in penetrating fashion at the guide wire insertion site utilizing an 11 blade scalpel. The dilator with cordis in place was advanced to the vessel without resistance. The dilator and guide wire were removed intact from the catheter without issue. Clave was placed on each catheter tip with confirmation of good blood flow from the lumen. Port was easily flushed with sterile saline. The catheter was placed at the hub and sutured in place. BioPatch was applied to the catheter and a sterile Tegaderm dressing was applied over the catheter with careful attention to sterility. Patient tolerated procedure well. No immediate complications were met. Images obtained are saved for permanent record Procedural Ultrasound Guidance: Procedure Date: 10/27/2023 Indication: Aggressive product resuscitation, pressor support, poor peripheral access Attending: Dr. Poole APC: Rc Thornton PA-C Artery AND Vein visualized: YES Compressible Vein: YES Guidewire or Short Catheter seen in vein prior to dilation: YES Line confirmed in Vein with ultrasound: YES Images obtained are saved for permanent record. [facility] [place] Procedure Codes (Charges) Tubes, Drains, and Vasc Access Procedure 1: Tubes, Drains, and Vasc Access: [id number] Place catheter in vein superior or inferior vena cava Procedure 2: Tubes, Drains, and Vasc Access: [id number] Ultrasonic Guide For Needle Placement Coding CPT Codes Tubes, Drains, and Vasc Access - Tubes, Drains, and Vasc Access: [id number] Place catheter in vein superior or inferior vena cava ([id number]) Tubes, Drains, and Vasc Access - Tubes, Drains, and Vasc Access: [id number] Ultrasonic Guide For Needle Placement ([id number]) Additional Codes Date of Service (PG.SURGERY)
--- NOTE | 2024-10-26 12:46 | Procedure Note ---
Procedure Note Date of Service October 26, 2024 Procedure: Femoral Arterial Line Placement Attending: Dr. Poole APC: Rc Thornton PA-C Indication: Central Drug Administration, Poor Venous Access, Multiple Lab Draws Necessary, etc. Anesthesia: Lidocaine 1% Emergent consent implied in the setting of active exsanguination from lower GI hemorrhage. Patient verbally consents. A time-out was completed verifying correct patient, procedure, site, positioning, and implants(s) or special equipment if applicable. Patient's LEFT Groin was cleansed and draped in the typical sterile fashion using Chloraprep. The Femoral Vein and Femoral Artery were identified using ultrasound. The superficial tissue was anesthetized using 4.0 mL of 1% lidocaine without epinephrine under direct visualization with the ultrasound. After adequate anesthetization was achieved, the Femoral Artery was cannulated under direct ultrasound guidance using an introducer needle on a syringe. Good arterial blood return was maintained prior to removal of syringe from introducer needle. Using Seldinger Technique, a guide wire was advanced through the introducer needle without resistance. The introducer needle was removed and ultrasound images were obtained of the guide wire within the Femoral Artery and saved to the patient's medical record. The 12 cm arterial catheter was advanced into the vessel without resistance. The guide wire was removed intact from the catheter without issue. Good pulsatile arterial blood was appreciated. Line was attached to tubing and was transducer was attached. Good waveform was noted. Line was sutured in place. BioPatch was applied to the catheter and a sterile Tegaderm dressing was applied over the catheter with careful attention to sterility. Patient tolerated procedure well. No immediate complications were met. Images obtained are saved for permanent record Procedural Ultrasound Guidance: Procedure Date: 10/26/2024 Indication: Hemodynamic monitoring, pressors, frequent ABGs, etc. Attending: Dr. Poole APC: Rc Thornton PA-C Images obtained are saved for permanent record. [facility] [place] Procedure Codes (Charges) Tubes, Drains, and Vasc Access Procedure 1: Tubes, Drains, and Vasc Access: [id number] Arterial Cath/Cannulation Sampling/Monitoring/Transfusion Coding CPT Codes Tubes, Drains, and Vasc Access - Tubes, Drains, and Vasc Access: [id number] Arterial Cath/Cannulation Sampling/Monitoring/Transfusion ([id number]) Additional Codes Date of Service (PG.SURGERY)
[2024-10-26] MEDS: NOREPINEPHRINE/D5W 4 MG/250 ML PLCT IV SCH (13:00)
[2024-10-26 13:04] LABS: iSTAT Art Bld Gas pCO2 Correct 48 mmHg (35-46); iSTAT Art Bld Gas pH Corrected 7.398 (7.35-7.45); iSTAT Arterial Blood Gas HCO3 30 meg/L (19-24); iSTAT Arterial Blood Gas pCO2 49 mmHg (35-46); iSTAT Arterial Blood Gas pO2 71 mmHg (80-95); iSTAT Arterial Blood Gas pO2 C 70; iSTAT Carbon Dioxide 31 mmol/L (24-31); iSTAT Hematocrit 21 % (42-52); iSTAT Hemoglobin 7.1 g/dl (14.0-18.0); iSTAT Potassium 4.5 mmol/L (3.3-5.0); iSTAT Sample Type Arterial; iSTAT Site Art Line; iSTAT Sodium 134 mmol/L (135-144); iSTAT SpO2 91
[2024-10-26] MEDS ORDERED: STAT IV Infusion **Titration per Protocol STA ×2 (13:15→14:42)
[2024-10-26] MEDS ORDERED: MIDAZOLAM BOLUS FROM BAG IV PRN (13:15)
[2024-10-26 13:21] LABS: BUN Creatinine Ratio 39.4 (10-20); Calcium 8.1 mg/dl (8.6-10.3); Creatinine Clr Calc Pharmacy 104.6 ml/min; Potassium 4.5 mmol/L (3.5-5.1)
--- NOTE | 2024-10-26 13:41 | Infectious Disease Progress Nt ---
Date of Service October 26, 2024 Assessment & Plan (1) Osteomyelitis of sacrum: (2) Discitis: (3) Type 2 diabetes mellitus: Plan ID Problem List: # Sacral wound SSTI with chronic osteomyelitis, sacral wound Cx + ESBL E. 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 vegetation Impression: Eddie Go is a 79-year-old man with a history of sacral ulcers, PUD, HTN, T2DM, recent admission 09/1209/28/24 at [facility] (CHF exacerbation, pna, and found to have presumed discitis on 6 weeks of empiric vancomycin and ceftriaxone), who presents from rehab to [facility] on 10/20/23 with rectal bleed, found to have sacral wound infection and sacral osteomyelitis, /5 sacral superficial wound Cx + ESBL E. coli and Pseudomonas aeruginosa. ID is consulted for sacral wound infection. The patient was previously admitted 09/1209/28/24 at [facility] with heart failure exacerbation and possible pna. At that visit, he was found to have back pain, with initial back MRI showing L1-L2 compression fracture with retropulsion; a repeat MRI showed possible progression, and thus a diagnosis of presumed discitis was made. Neurosurgery and ID both recommended to treat with antibiotics for presumed discitis he was recommended to complete a 6-week course of vancomycin and ceftriaxone via PICC. Of note, the patient was also found to have a large R inguinal hernia but declined surgery at the time. This admission, he presents with rectal bleeding. Upon admission, afebrile, WBC 8.18. On 10/22, WBC increased to 15.9. The patient was noted to have sacral wound on admission with suspected sacral wound infection. 10/20 CT A/P showed sacral decubitus ulcer with coccyx osteomyelitis, age-indeterminate compression Fx of L1-L2 with moderate retropulsion, proctitis, large R inguinal hernia; bibasilar pulmonary densities c/f atelectasis vs. pna. General surgery was consulted with plan to go to OR for debridement and bone Bx on 10/24. A superficial wound Cx of the sacrum on 10/21 was + ESBL E. coli and Pseudomonas aeruginosa. The patient was initially on ceftriaxone -> cefepime -> and changed to meropenem on 10/23. Of note, pt underwent EGD on 10/20 which was negative for bleeding, and C-scope which showed old blood in the colon. Discussion Pt had presumed discitis/osteomyelitis diagnosed at [facility] based on back pain and imaging; 2 vertebral biopsies were reportedly Cx-negative per OSH note from 09/26/24. He was seen by NSGY who recommended abx, and seen by ID who recommended an empiric 6-week course of vancomycin and ceftriaxone (EOT 11/03/24 ). This admission, a repeat 10/25 CT L-spine showing L1-L2 compression fracture and bony erosion, at this time not highly suggestive of discitis/osteomyelitis though this is after several weeks of IV abx. Notably, OSH records also mentioned that the patient had RV failure. This admission, 10/24 TTE showing long (5.3 x 0.8 cm) hypermobile mass in RA partially prolapses across TR. Per cardiology, the appearance suggestive of thrombus, less likely vegetation, and it appears to be PICC-associated. OSH TTE results reportedly did not mention this finding, thus the finding is of unclear duration. Per cardiology, holding off on PICC removal at this time due to concern that it could dislodge the thrombus. In the setting of RV failure at the OSH, possible discitis/osteomyelitis, concern that the patients RA thrombus may actually be superinfected and represent endocarditis as well. On 10/26, pt with GI bleeding requiring ICU transfer, thus unable to receive anticoagulation. 10/25 BCx ordered, however pt has been on long-term abx prior to admission and during hospitalization, thus may be low yield. Pt with multiple sacral and back pressure wounds with central necrosis. S/p OR 10/24 for I&D 3 back/sacral wounds were debrided down to bone with >100 sq cm of tissue debrided. Oftentimes, unable to cure chronic sacral osteomyelitis unless there is an intensive wound care and pressure offloading plan; sometimes for more severe wounds, this also involves definitive surgical plan involving plastic surgery and flap procedure, and stool/urinary management such as ostomy. On 10/24, discussed with Dr. Mcclellan of surgery the patient was previously ambulatory and it is his first time with a sacral wound, and thus despite the large wound, is currently favoring a trial of IV abx, along with nutrition, offloading, and possible wound vac. In that case, may be reasonable to trial a 6-week course of IV abx, though have concern that the wounds may progress despite abx therapy. Superficial wound swab with ESBL E. coli, PsA, Bacteroides ovatus; these may be wound colonizers but can continue meropenem for now. 10/24 OR Cx NGTD (though was after broad-spectrum abx). Currently on vancomycin (finishing up the 6-week course of vertebral discitis/osteomyelitis) and meropenem (for sacral SSTI, also encompasses broad empiric discitis/osteomyelitis treatment). Will have received a 6-week course of IV abx by 11/03/24 for empiric vertebral discitis/osteomyelitis however if also treating for sacral osteomyelitis, and if uncertainty about potential for infected cardiac thrombus, may consider extending course for another 6 weeks. Recommendations: - Continue meropenem for ESBL/Pseudomonas sacral wound infection, if treating for sacral osteomyelitis then anticipate a 6-week course - Continue IV vancomycin - Appreciate cardiology following, discussing transfer to tertiary care for management of PICC-associated RA thrombus vs. vegetation. Consider BERNABE, consider cardiac surgery evaluation. - S/p I&D on 10/24 will follow bone and tissue Cx - F/u BCx 10/25 - Ensure a multi-modal approach to healing of sacral/back pressure wounds, including wound offloading, possible wound vac, and close outpatient follow-up with surgery and wound care ID will continue to follow. Shweta Lee MD, MHS Infectious Diseases [facility]/ID Connect ID Connect direct line: [phone] Admission and Anticipated Discharge Date Admission Date: October 20, 2024 Subjective This patient recommendation is based on a telemedicine consult request which was completed asynchronously through chart review and information provided by the primary physician. The patient was not seen or examined today. The evaluation is consultative in nature and all patient care and treatment decisions can either be accepted or rejected by the patient's primary hospital-based treating physician using their own independent medical judgment for their patient. Time Spent Reviewing Chart: 31+ minutes PLEASE NOTE: E-consult was performed for this visit given technical issues on the telepresenter side. - Afebrile, WBC 8.77 - Patient with GI bleeding while on anticoagulation, transferred to ICU. Discussing possibility of transfer to tertiary care for his RA thrombus and catheter-directed therapy. Keeping PICC in place until a plan is made. Results & Data Vital Signs (Past 12 Hours) Vital Signs Temp Pulse Pulse Pulse Resp BP BP 10/26/24 12:26 36.8 C 93 H 20 100/48 L 10/26/24 11:56 36.8 C 106 H 18 79/43 L 10/26/24 11:36 10/26/24 11:33 95 H 18 10/26/24 11:32 98/51 L 10/26/24 11:26 36.8 C 94 H 18 98/51 L 10/26/24 11:18 109 H 15 10/26/24 11:15 105/67 10/26/24 11:11 36.8 C 97 H 18 105/67 10/26/24 11:06 19 10/26/24 10:52 36.9 C 90 18 105/58 L 10/26/24 10:30 102 H 17 10/26/24 10:30 113/58 L 10/26/24 10:16 104/59 L 10/26/24 10:15 94 H 18 10/26/24 10:03 92 H 15 10/26/24 10:00 93/68 L 10/26/24 09:48 95 H 12 10/26/24 09:45 98/58 L 10/26/24 09:24 107 H 18 10/26/24 09:16 36.9 C 10/26/24 09:00 103/60 10/26/24 08:57 102 H 22 10/26/24 08:55 87/58 L 10/26/24 06:26 36.8 C 108 H 16 96/60 L 10/26/24 05:56 36.8 C 106 H 18 88/52 L 10/26/24 05:41 36.8 C 111 H 18 82/53 L 10/26/24 05:20 36.9 C 126 H 18 71/46 L 10/26/24 05:13 105 H 79/48 L 10/26/24 04:37 85/51 L 10/26/24 04:23 36.5 C 125 H 18 95/57 L 10/26/24 03:17 36.6 C 96 H 20 125/64 Pulse Ox O2 Del Method O2 Flow Rate 10/26/24 12:26 96 2 10/26/24 11:56 95 2 10/26/24 11:36 Nasal Cannula 2 10/26/24 11:33 100 10/26/24 11:32 10/26/24 11:26 96 2 10/26/24 11:18 96 10/26/24 11:15 10/26/24 11:11 97 2 10/26/24 11:06 92 10/26/24 10:52 97 2 10/26/24 10:30 95 10/26/24 10:30 10/26/24 10:16 10/26/24 10:15 95 10/26/24 10:03 100 10/26/24 10:00 10/26/24 09:48 100 10/26/24 09:45 10/26/24 09:24 100 10/26/24 09:16 10/26/24 09:00 10/26/24 08:57 100 4 10/26/24 08:55 10/26/24 06:26 95 10/26/24 05:56 99 4 10/26/24 05:41 99 4 10/26/24 05:20 99 4 10/26/24 05:13 10/26/24 04:37 10/26/24 04:23 95 Oxymask 4 10/26/24 03:17 99 Nasal Cannula 4 Diagnostic Findings Diagnostics: 10/25 TTE with limited views: hypermobile mass in RA noted again 10/25 L-spine CT 1. Severe L1 and L2 compression fractures, unchanged in appearance since CT of October 20, 2024. Extensive bony erosion involving the inferior endplate of L1 with an associated 1 cm retropulsed bone fragment at the L1 level which results in severe central canal stenosis, unchanged. Although age indeterminate, subacute fractures are favored. No CT evidence for underlying malignancy. Although fractures and bony erosion centered at the L1-L2 level, the findings are not highly suggestive of discitis/osteomyelitis although correlation with evidence for an infectious process is recommended. 2. Healing fractures of the right transverse process of L1, bilateral L2 transverse processes and posterior 12th ribs. 3. Moderate multilevel degenerative disc disease and facet arthrosis within the lumbar spine. 4. Mild lumbar spine levoscoliosis. 10/25 CTA chest No evidence of pulmonary embolism. Bilateral pleural effusions with compressive atelectasis and/or consolidation in both lower lobes. Fragmented fractures of L1 and L2 with paraspinous soft tissue prominence and spinal canal stenosis. Recommend correlation with CT or MRI. Pathologic fractures or infection not excluded. 10/24 TTE Long (5.3 x 0.8 cm) hypermobile mass in RA partially prolapses across TR. Appearance suggestive of thrombus, less likely vegetation 10/24 I&D op note Specimens 1. debrided ulcer tissue 2. sacral bone biopsy We began by using a 10 blade scalpel to cut down through the periphery of each back wound. These were all irregularly shaped. They all had black central eschar. We used cautery to remove all the overlying tissue and sent 3 pieces of soft tissue as specimen. Each wound was carried down through skin and soft tissue down to bone. The total square cm of debridement was over 100 square cm. We controlled all bleeding using cautery. I used a rongeur to obtain a bone biopsy of the sacrum. 10/20 CT A/P Proctitis with increased arterial vascularity along the wall of the inflamed rectum. This may represent the source of bleeding. Large right inguinal hernia containing a significant portion of the nondistended ascending colon. 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 Age-indeterminate compression fractures of L1 and L2 vertebral bodies with moderate retropulsion. Small pleural fluids with subjacent bibasilar pulmonary densities that may represent atelectasis and pneumonia. Micro Data: 10/25 BC x2: PEND 10/24 Sacral wound OR Cx: NGTD 10/21 Sacral wound Cx: ESBL E. coli (S-clyde/erta/cipro/levo/Bactrim), Pseudomonas aeruginosa (solomon-S), Bacteroides ovatus Antibiotic Summary: vancomycin (10/06/, 10/20 present) meropenem (10/23 present) prior cefepime (10/22) ceftriaxone (10/06 10/19, 10/20 10/21)
[2024-10-26 14:04] LABS: Fibrinogen 414 mg/dl (184-400); INR 1.2 (0.9-1.1); Partial Thromboplastin Ratio 1.1; Partial Thromboplastin Time 30 Seconds (21-31)
[2024-10-26 14:06] LABS: D Dimer 2320 ug/L FEU (0-500)
--- NOTE | 2024-10-26 14:13 | Procedure Note ---
Procedure Note Date of Service October 26, 2024 INTUBATION PROCEDURE NOTE: Provider: Jose Poole MD A time-out was completed verifying correct patient, procedure, site, positioning. Patient was evaluated and required intubation for hemodynamically significant GI bleed necessitating endoscopy and aggressive fluid resuscitation. Sedative agent used: Etomidate 40 mg Paralysis agent used: None Emergent consent was implied given patients rapidly declining clinical status and need for airway protection. Procedure was discussed with the patient. He was agreeable to proceed and verbal consent was obtained The patient was prepared in the appropriate fashion. Sedation was achieved utilizing etomidate. The patient was easily ventilated using [id number] to achieve adequate oxygenation. Video laryngoscopy was performed. The cords were easily visualized. A 8.0 Greenlandic endotracheal tube was placed under direct visualization. The stylette was removed and balloon was inflated with 10mL of air. Appropriate Colorimetric change was appreciated. Bilateral breath sounds were heard without air sounds in the abdomen. Tube was verified bronchoscopically. See separate procedure note [facility] [place] Procedure Codes (Charges) Resuscitation Resuscitation: 39451 Endotracheal Intubation, emergency Coding CPT Codes Resuscitation - Resuscitation: 00576 Endotracheal Intubation, emergency ([id number]) Additional Codes Date of Service (PG.SURGERY)
--- NOTE | 2024-10-26 14:15 | Procedure Note ---
Procedure Note Date of Service October 26, 2024 Procedure: Fiberoptic bronchoscopy Therapeutic aspiration of secretions, initial Provider: Jose Poole MD Consent: Procedure was emergent. Patient had just been intubated and had very coarse breath sounds. Bronchoscopy was warranted to verify to position and to clear tracheobronchial tree Procedure: Had been intubated in the ICU. He is placed on 100% FiO2. The fiberoptic scope was advanced through the existing endotracheal tube. There were thick copious secretions present within the endotracheal tube extending down into the main trachea. These were lavaged extensively and eventually cleared. At that point in time we were able to verify that the tip of the endotracheal tube was in good position of the trachea approximately 4 cm above the edith. The airways were sequentially examined at that point in time. There were thick purulent mucoid secretions emanating from both mainstem bronchi which again were lavaged free. Once they were cleared up, we were able to examine the mucosa. There was a small polypoid mucosal nodule present in the takeoff to the left lower lobe bronchus at about the 5 o'clock position. Otherwise no endobronchial lesions were identified. Impression: 1. Endotracheal tube in good position. 2. Thick mucoid secretions throughout the tracheobronchial tree. 3. Small polypoid mucosal lesion at the takeoff to the left lower lobe bronchus. Recommend follow-up bronchoscopy in 3 months [facility] [place] Procedure Codes (Charges) Pulmonary/Thoracic Procedure 1: Pulmonary and Thoracic: 58982 Bronchoscopy, clear airways Coding CPT Codes Pulmonary/Thoracic - Pulmonary and Thoracic: 82330 Bronchoscopy, clear airways ([id number]) Additional Codes Date of Service (PG.SURGERY)
[2024-10-26] MEDS: MIDAZOLAM HCL 125 MG/250 ML BAG IV SCH (14:33)
[2024-10-26] MEDS: fentaNYL citrate 2,500 MCG/250 ML BAG IV SCH (14:33)
[2024-10-26 14:51] LABS: iSTAT Art Bld Gas pCO2 Correct 59 mmHg (35-46); iSTAT Art Bld Gas pH Corrected 7.275 (7.35-7.45); iSTAT Arterial Blood Gas HCO3 28 meg/L (19-24); iSTAT Arterial Blood Gas pCO2 59 mmHg (35-46); iSTAT Arterial Blood Gas pH 7.28 (7.35-7.45); iSTAT Arterial Blood Gas pO2 257 mmHg (80-95); iSTAT Arterial Blood Gas pO2 C 257; iSTAT Carbon Dioxide 29 mmol/L (24-31); iSTAT FiO2 60 %; iSTAT Hematocrit 31 % (42-52); iSTAT Hemoglobin 10.5 g/dl (14.0-18.0); iSTAT Potassium 4.3 mmol/L (3.3-5.0); iSTAT Sample Type Arterial; iSTAT Site Art Line; iSTAT Sodium 136 mmol/L (135-144); iSTAT SpO2 100
[2024-10-26] MEDS: PROPOFOL IV EMULSION 10 MG/ML 100 ML VIAL IV ONE (15:13)
[2024-10-26] MEDS: NOREPINEPHRINE/D5W 4 MG/250 ML IV ONE (15:13)
[2024-10-26] MEDS: PHENYLEPHRINE HCL 25 MG/250 ML NSS IV ONE (15:13)
[2024-10-26] MEDS: RAPID SEQUENCE INDUCTION BAG ONE (15:13)
[2024-10-26] MEDS ORDERED: GELATIN SPONGE SZ 100 ONE (15:14)
[2024-10-26] MEDS: MIDAZOLAM HCL 5 MG/ML 2ML VIAL ONE ×2 (15:14)
--- NOTE | 2024-10-26 15:28 | GI REPORT ---
[facility] Patient: MALATHI RIVERS : 1945 Sex at : Male Age: 79 Years Procedure: Colonoscopy Date: 10/26/2024 Attending Physician: Easton Nunez MD Referring MD: Elin Reyes Md; Jose Poole Md Indications: - Hematochezia Medications: - Monitored Anesthesia Care Complications: - No immediate complications. Procedure: - Prior to the procedure, a History and Physical was performed, and patient medications, allergies and sensitivities were reviewed. The patient's tolerance of previous anesthesia was reviewed. - The risks and benefits of the procedure and the sedation options and risks were discussed with the patient. All questions were answered and informed consent was obtained. - ASA Grade Assessment: I - A normal, healthy patient. - Prior Anticoagulants: The patient has taken no anticoagulant or antiplatelet agents. - Prior to the procedure, a History and Physical was performed, and patient medications and allergies were reviewed. The patient's tolerance of previous anesthesia was also reviewed. The risks and benefits of the procedure and the sedation options and risks were discussed with the patient. All questions were answered, and informed consent was obtained. [Anticoagulant Agents] [Days Prior to Procedure]. [ASA Grade]. After reviewing the risks and benefits, the patient was deemed in satisfactory condition to undergo the procedure. - The adult colonoscope was introduced through the anus and advanced to the descending colon. - The colonoscopy was performed without difficulty. - The patient tolerated the procedure well. - The quality of the bowel preparation was adequate. Findings: - Red blood was found in the distal rectum. No definitive mucosal site identified. 2 mL of 1:10,000 epinephrine injected around the area of active bleeding. Good hemostasis achieved. More proximal colon to descending colon was free of blood with solid brown stool present. Impression: - Active bleeding in distal rectum. - 2 mL of 1:10,000 epinephrine injected around the area of active bleeding. - Hemostasis achieved. Recommendation: - Keep NPO - Monitor H/H - Consult surgery for anorectal exam to look for bleeding site and possibly treat. - Continue to pursue transfer to tertiary care facility equipped with interventional radiology. Procedure Code(s): - 25423-58, Colonoscopy, flexible; diagnostic, including collection of specimen(s) by brushing or washing, when performed (separate procedure) Diagnosis Code(s): - K62.5, Hemorrhage of anus and rectum CPT(R) - 2023 copyright [employer]. All Rights Reserved. The CPT codes, CCI edits and ICD codes generated are intended as suggestions and were generated based on input data. These codes are preliminary and upon ring sorter review may be revised to meet current compliance and payer requirements. The provider is responsible for the final determination of appropriate codes, and modifiers. Easton Nunez MD This document has been electronically signed. Note Initiated:10/26/2024 Note Completed:10/26/2024 3:27 PM \\[email or web address]\Results\LIVE\[id number]
[2024-10-26 15:30] LABS: Hemoglobin 10.5 g/dl (14.0-18.0); Mean Corpuscular Hemoglobin 29.6 pg (25.0-34.0); Mean Corpuscular Hgb Conc 33.9 g/dL (32.0-36.0); Mean Corpuscular Volume 87.3 fL (80.0-100.0); Mean Platelet Volume 9.7 fL (9.4-12.4); Platelet Count 176 K/uL (130-400); RDW Coefficient of Variation 15.2 % (11.5-14.5); RDW Standard Deviation 48.5 fL (36.4-46.3); Red Blood Count 3.55 M/uL (4.70-6.10); White Blood Count 15.31 K/ul (4.8-10.8)
--- NOTE | 2024-10-26 15:30 | Surgery Consultation ---
Date of Consultation October 26, 2024 Assessment & Plan (1) Hematochezia: (2) Anemia: (3) GI bleed: 79 yo male with active GI bleed , 2 days s/p I&D debridement of sacral wound. Transferred to ICU this morning due to active rectal bleeding with hypotension. s/p 7 units of blood 2 units FFP 6 liters of fluid Sigmoidoscopy by GI showed low rectal bleed, injected with 2 cc of epinephrine which controlled the bleeding temporarily. Bedside sigmoid-proctoscopy performed and gel-foam inserted by Dr. Scott. Patient needs transfer to tertiary center for IR embolization. Dr. Scott has seen and examined patient, performed bedside procedure. 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 He is 2 days s/p debridement of sacral wound by Dr. Mcclellan. Found to have active rectal bleeding this morning and transferred to ICU in which he has now been intubated with artial line and central line on pressors and underwent massive transfusion protocol , now s/p 6 units of PRBCs, 2 units of FFP and 6 liters of fluid. GI did bedside sigmoidoscopy which showed lower rectal bleed and injected 2 cc of epinephrine which slowed/controlled bleeding. Awaiting transfer to [place] however they wanted patients rectum packed given the bleeding prior to transfer. Allergies Allergy/AdvReac Type Severity Reaction Status Date / Time No Known Allergies Allergy Verified 10/24/24 06:51 Home Medications Medication Instructions Recorded Confirmed Type acetaminophen 325 mg tablet 650 mg PO Q4 PRN PAIN 1-3 10/19/24 10/19/24 History acetaminophen 500 mg tablet 500 mg PO Q4 PRN TEMP > OR = 100.5 10/19/24 10/19/24 History atorvastatin 10 mg tablet 10 mg PO HS 10/19/24 10/19/24 History calcium carbonate 500 mg PO Q8 PRN Indigestion 10/19/24 10/19/24 History ceftriaxone 2 gram solution for 2,000 mg IV .QDL 10/19/24 10/19/24 History injection docusate sodium 100 mg capsule 100 mg PO .Q12 HR PRN Constipation 10/19/24 10/19/24 History (Colace) empagliflozin 25 mg tablet 25 mg PO QAM 10/19/24 10/19/24 History (Jardiance) ipratropium 0.5 mg-albuterol 3 mg 3 ml inhalation TID 10/19/24 10/19/24 History (2.5 mg base)/3 mL nebulization soln lidocaine 4 % topical patch 1 patch topical DAILY 10/19/24 10/19/24 History losartan 25 mg tablet 25 mg PO DAILY 10/19/24 10/19/24 History melatonin 3 mg tablet 6 mg PO HS 10/19/24 10/19/24 History naloxone 4 mg/actuation nasal spray 4 mg intranasal UD PRN Opioid 10/19/24 10/19/24 History Overdose nicotine 14 mg/24 hr daily 1 patch transdermal DAILY 10/19/24 10/19/24 History transdermal patch ondansetron 4 mg disintegrating 4 mg PO Q6H PRN NAUSEA OR VOMITING 10/19/24 10/19/24 History tablet oxycodone 20 mg tablet,crush 20 mg PO Q12H 10/19/24 10/19/24 History resistant,extended release 12 hr oxycodone 5 mg tablet 5 mg PO Q4 PRN PAIN 4-6 10/19/24 10/19/24 History pantoprazole 40 mg tablet,delayed 40 mg PO HS 10/19/24 10/19/24 History release pioglitazone 15 mg tablet (Actos) 15 mg PO BIDM 10/19/24 10/19/24 History polyethylene glycol 3350 17 17 g PO QDL PRN Constipation 10/19/24 10/19/24 History gram/dose oral powder (Miralax) sennosides 8.6 mg-docusate sodium 1 tab-cap PO QDL PRN Constipation 10/19/24 10/19/24 History 50 mg tablet (Senokot-S) vancomycin 1.25 gram intravenous 1,250 mg IV QDL 10/19/24 10/19/24 History solution bumetanide 1 mg tablet 1 mg PO BID 10/20/24 History oxycodone 5 mg tablet 10 mg PO Q4H PRN PAIN 7-10 10/20/24 10/20/24 History Patient History Surgical History S/P debridement (10/24/24) Sacral Debridement and Bone Biopsy(Not Applicable) - Ariel Mcclellan, DO Social History Smoking Status: Former smoker Hx Alcohol Use: Yes Alcohol type: beer Hx Substance Use: No Preferred Language: Iranian Communication Ability: Effective Box Bender Required: No Beliefs That Will Affect Care: None Current Living Situation: Rehab Other Information That Helps Us Care for You: No Feels Safe at Home: Yes Safety Concerns: Feels Safe At This Time Assistive Devices: Denture - Upper, Denture - Lower, Glasses, Hospital Bed, Oxygen - Continuous and Walker Physical Exam Constitutional: WD/WN, vitals as above + ill appearing, + frail appearing and + mechanically ventilated Gastrointestinal (Abdomen): Rectal exam: there is some active bleeding present, large sacral wound with granulation tissue present. Neurologic: sedated, intubated Results & Data Vital Signs (Past 12 Hours) Vital Signs Temp Pulse Pulse Resp BP BP Pulse Ox 10/26/24 14:58 22 10/26/24 14:41 37 C 10/26/24 14:25 10/26/24 14:00 10/26/24 13:51 83 16 96 10/26/24 13:45 77 14 100 10/26/24 13:39 76 16 100 10/26/24 13:35 76 16 100 10/26/24 13:31 146/77 H 10/26/24 13:25 116/73 10/26/24 13:25 116/73 10/26/24 13:23 72 14 100 10/26/24 13:20 140/63 10/26/24 13:20 140/63 10/26/24 13:20 140/63 10/26/24 13:19 77 16 100 10/26/24 13:17 83 16 100 10/26/24 13:15 114/61 10/26/24 13:15 114/61 10/26/24 13:15 114/61 10/26/24 13:10 10/26/24 13:02 110 H 15 100 10/26/24 13:01 145/58 H 10/26/24 13:01 145/58 H 10/26/24 12:47 97 H 21 99 10/26/24 12:31 97/52 L 10/26/24 12:26 36.8 C 93 H 20 100/48 L 96 10/26/24 12:25 100/48 L 10/26/24 12:23 88/56 L 10/26/24 12:20 108 H 14 10/26/24 12:20 91/58 L 10/26/24 12:20 91/58 L 10/26/24 12:18 85/60 L 10/26/24 12:18 85/60 L 10/26/24 12:17 107 H 14 10/26/24 12:15 91/61 L 10/26/24 12:12 108 H 15 10/26/24 12:11 109 H 17 10/26/24 12:06 114 H 21 10/26/24 12:01 79/43 L 10/26/24 12:01 79/43 L 10/26/24 11:56 36.8 C 106 H 18 79/43 L 95 10/26/24 11:54 113 H 23 10/26/24 11:54 70/41 L 10/26/24 11:54 70/41 L 10/26/24 11:54 70/41 L 10/26/24 11:42 91 H 13 99 10/26/24 11:39 89 15 100 10/26/24 11:36 10/26/24 11:33 95 H 18 100 10/26/24 11:32 98/51 L 10/26/24 11:26 36.8 C 94 H 18 98/51 L 96 10/26/24 11:18 109 H 15 96 10/26/24 11:15 105/67 10/26/24 11:11 36.8 C 97 H 18 105/67 97 10/26/24 11:06 19 92 10/26/24 10:52 36.9 C 90 18 105/58 L 97 10/26/24 10:30 102 H 17 95 10/26/24 10:30 113/58 L 10/26/24 10:16 104/59 L 10/26/24 10:15 94 H 18 95 10/26/24 10:03 92 H 15 100 10/26/24 10:00 93/68 L 10/26/24 09:48 95 H 12 100 10/26/24 09:45 98/58 L 10/26/24 09:24 107 H 18 100 10/26/24 09:16 36.9 C 10/26/24 09:00 103/60 10/26/24 08:57 102 H 22 100 10/26/24 08:55 87/58 L 10/26/24 06:26 36.8 C 108 H 16 96/60 L 95 10/26/24 05:56 36.8 C 106 H 18 88/52 L 99 10/26/24 05:41 36.8 C 111 H 18 82/53 L 99 10/26/24 05:20 36.9 C 126 H 18 71/46 L 99 10/26/24 05:13 105 H 79/48 L 10/26/24 04:37 85/51 L 10/26/24 04:23 36.5 C 125 H 18 95/57 L 95 O2 Del Method O2 Flow Rate FiO2 10/26/24 14:58 40 10/26/24 14:41 10/26/24 14:25 60 10/26/24 14:00 100 10/26/24 13:51 10/26/24 13:45 10/26/24 13:39 10/26/24 13:35 10/26/24 13:31 10/26/24 13:25 10/26/24 13:25 10/26/24 13:23 10/26/24 13:20 10/26/24 13:20 10/26/24 13:20 10/26/24 13:19 60 10/26/24 13:17 10/26/24 13:15 10/26/24 13:15 10/26/24 13:15 10/26/24 13:10 Mechanical Vent 10/26/24 13:02 10/26/24 13:01 10/26/24 13:01 10/26/24 12:47 10/26/24 12:31 10/26/24 12:26 2 10/26/24 12:25 10/26/24 12:23 10/26/24 12:20 10/26/24 12:20 10/26/24 12:20 10/26/24 12:18 10/26/24 12:18 10/26/24 12:17 10/26/24 12:15 10/26/24 12:12 10/26/24 12:11 10/26/24 12:06 10/26/24 12:01 10/26/24 12:01 10/26/24 11:56 2 10/26/24 11:54 10/26/24 11:54 10/26/24 11:54 10/26/24 11:54 10/26/24 11:42 10/26/24 11:39 10/26/24 11:36 Nasal Cannula 2 10/26/24 11:33 10/26/24 11:32 10/26/24 11:26 2 10/26/24 11:18 10/26/24 11:15 10/26/24 11:11 2 10/26/24 11:06 10/26/24 10:52 2 10/26/24 10:30 10/26/24 10:30 10/26/24 10:16 10/26/24 10:15 10/26/24 10:03 10/26/24 10:00 10/26/24 09:48 10/26/24 09:45 10/26/24 09:24 10/26/24 09:16 10/26/24 09:00 10/26/24 08:57 4 10/26/24 08:55 10/26/24 06:26 10/26/24 05:56 4 10/26/24 05:41 4 10/26/24 05:20 4 10/26/24 05:13 10/26/24 04:37 10/26/24 04:23 Oxymask 4 Laboratory Results 10/26/24 10/26/24 10/26/24 Range/Units 14:42 14:38 12:51 WBC Pending RBC Pending Hgb Pending (14.0-18.0) g/dl POC Hgb 10.5 L 7.1 L (14.0-18.0) g/dl Hct Pending (42.0-52.0) % POC Hct 31 L 21 L (42-52) % MCV Pending MCH Pending MCHC Pending Plt Count Pending PT (9.0-12.0) Seconds INR (0.9-1.1) APTT (21-31) Seconds PTT Ratio Fibrinogen (184-400) mg/dl D-Dimer (0-500) ug/L FEU Heparin Anti-Xa, Unfract (0.3-0.7) IU/ml Specimen Type Arterial Arterial Sample Site Art Line Art Line POC pH 7.28 L 7.40 (7.35-7.45) POC pCO2 59 H 49 H (35-46) mmHg POC pO2 257 H 71 L (80-95) mmHg POC HCO3 28 H 30 H (19-24) alo/L POC Total CO2 29 31 (24-31) mmol/L POC Base Excess 1.0 5.0 H (-9-1.8) alo/L O2 Sat Pulse Oximetry 100 91 ABG pH (Temp Correct) 7.275 L 7.398 (7.35-7.45) ABG pCO2 (Temp Corrct 59 H 48 H (35-46) mmHg POC ABG pO2 at Pt Temp 257 70 POC ABG O2 Sat 100.0 H 94.0 (90-95) % Atif Test NA NA O2 Delivery Device Ventilator Cannula Vent Mode AC POC FiO2 60 % End Tidal CO2 32 POC Sodium 136 134 L (135-144) mmol/L Sodium (136-145) mmol/L POC Potassium 4.3 4.5 (3.3-5.0) mmol/L Potassium (3.5-5.1) mmol/L Chloride (98-107) mmol/L Carbon Dioxide (21-32) mmol/L Anion Gap (3-11) BUN (6-23) mg/dl Creatinine (0.6-1.4) mg/dl Est Cr Clr Drug Dosing ml/min eGFR BUN/Creatinine Ratio (10-20) Glucose (70-99(Fasting)) mg/dl POC Glucose (70-99) mg/dl Lactate 0.9 (0.4-2.0) mmol/L Calcium (8.6-10.3) mg/dl Ionized Calcium (1.12-1.32) mmol/L Blood Type Antibody Screen Crossmatch 10/26/24 10/26/24 10/26/24 Range/Units 12:47 12:44 09:52 WBC RBC Hgb 7.0 L (14.0-18.0) g/dl POC Hgb (14.0-18.0) g/dl Hct 21.6 L (42.0-52.0) % POC Hct (42-52) % MCV MCH MCHC Plt Count PT 13.0 H (9.0-12.0) Seconds INR 1.2 H (0.9-1.1) APTT 30 (21-31) Seconds PTT Ratio 1.1 Fibrinogen 414 H (184-400) mg/dl D-Dimer 2320 H* (0-500) ug/L FEU Heparin Anti-Xa, Unfract (0.3-0.7) IU/ml Specimen Type Sample Site POC pH (7.35-7.45) POC pCO2 (35-46) mmHg POC pO2 (80-95) mmHg POC HCO3 (19-24) alo/L POC Total CO2 (24-31) mmol/L POC Base Excess (-9-1.8) alo/L O2 Sat Pulse Oximetry ABG pH (Temp Correct) (7.35-7.45) ABG pCO2 (Temp Corrct (35-46) mmHg POC ABG pO2 at Pt Temp POC ABG O2 Sat (90-95) % Atif Test O2 Delivery Device Vent Mode POC FiO2 % End Tidal CO2 POC Sodium (135-144) mmol/L Sodium 134 L (136-145) mmol/L POC Potassium (3.3-5.0) mmol/L Potassium 4.5 (3.5-5.1) mmol/L Chloride 101 (98-107) mmol/L Carbon Dioxide 32 (21-32) mmol/L Anion Gap 1 L (3-11) BUN 26 H (6-23) mg/dl Creatinine 0.66 (0.6-1.4) mg/dl Est Cr Clr Drug Dosing 104.6 ml/min eGFR 95.41 BUN/Creatinine Ratio 39.4 H (10-20) Glucose 161 H (70-99(Fasting)) mg/dl POC Glucose (70-99) mg/dl Lactate 2.1 H* (0.4-2.0) mmol/L Calcium 8.1 L (8.6-10.3) mg/dl Ionized Calcium 1.26 (1.12-1.32) mmol/L Blood Type Antibody Screen Crossmatch 10/26/24 10/26/24 10/26/24 Range/Units 08:23 07:15 04:29 WBC RBC Hgb 7.2 L (14.0-18.0) g/dl POC Hgb (14.0-18.0) g/dl Hct 22.6 L (42.0-52.0) % POC Hct (42-52) % MCV MCH MCHC Plt Count PT (9.0-12.0) Seconds INR (0.9-1.1) APTT (21-31) Seconds PTT Ratio Fibrinogen (184-400) mg/dl D-Dimer (0-500) ug/L FEU Heparin Anti-Xa, Unfract 0.11 L (0.3-0.7) IU/ml Specimen Type Sample Site POC pH (7.35-7.45) POC pCO2 (35-46) mmHg POC pO2 (80-95) mmHg POC HCO3 (19-24) alo/L POC Total CO2 (24-31) mmol/L POC Base Excess (-9-1.8) alo/L O2 Sat Pulse Oximetry ABG pH (Temp Correct) (7.35-7.45) ABG pCO2 (Temp Corrct (35-46) mmHg POC ABG pO2 at Pt Temp POC ABG O2 Sat (90-95) % Atif Test O2 Delivery Device Vent Mode POC FiO2 % End Tidal CO2 POC Sodium (135-144) mmol/L Sodium 133 L (136-145) mmol/L POC Potassium (3.3-5.0) mmol/L Potassium 4.7 (3.5-5.1) mmol/L Chloride 99 (98-107) mmol/L Carbon Dioxide 34 H (21-32) mmol/L Anion Gap 0 L (3-11) BUN 26 H (6-23) mg/dl Creatinine 0.75 0.82 (0.6-1.4) mg/dl Est Cr Clr Drug Dosing 92.1 87.2 ml/min eGFR 91.80 89.36 BUN/Creatinine Ratio 34.7 H (10-20) Glucose 274 H (70-99(Fasting)) mg/dl POC Glucose 212 H (70-99) mg/dl Lactate 1.0 (0.4-2.0) mmol/L Calcium 8.4 L (8.6-10.3) mg/dl Ionized Calcium (1.12-1.32) mmol/L Blood Type Antibody Screen Crossmatch 10/25/24 10/25/24 10/24/24 Range/Units 20:43 16:15 06:31 WBC RBC Hgb (14.0-18.0) g/dl POC Hgb (14.0-18.0) g/dl Hct (42.0-52.0) % POC Hct (42-52) % MCV MCH MCHC Plt Count PT (9.0-12.0) Seconds INR (0.9-1.1) APTT (21-31) Seconds PTT Ratio Fibrinogen (184-400) mg/dl D-Dimer (0-500) ug/L FEU Heparin Anti-Xa, Unfract (0.3-0.7) IU/ml Specimen Type Sample Site POC pH (7.35-7.45) POC pCO2 (35-46) mmHg POC pO2 (80-95) mmHg POC HCO3 (19-24) alo/L POC Total CO2 (24-31) mmol/L POC Base Excess (-9-1.8) alo/L O2 Sat Pulse Oximetry ABG pH (Temp Correct) (7.35-7.45) ABG pCO2 (Temp Corrct (35-46) mmHg POC ABG pO2 at Pt Temp POC ABG O2 Sat (90-95) % Atif Test O2 Delivery Device Vent Mode POC FiO2 % End Tidal CO2 POC Sodium (135-144) mmol/L Sodium (136-145) mmol/L POC Potassium (3.3-5.0) mmol/L Potassium (3.5-5.1) mmol/L Chloride (98-107) mmol/L Carbon Dioxide (21-32) mmol/L Anion Gap (3-11) BUN (6-23) mg/dl Creatinine (0.6-1.4) mg/dl Est Cr Clr Drug Dosing ml/min eGFR BUN/Creatinine Ratio (10-20) Glucose (70-99(Fasting)) mg/dl POC Glucose 116 H 97 (70-99) mg/dl Lactate (0.4-2.0) mmol/L Calcium (8.6-10.3) mg/dl Ionized Calcium (1.12-1.32) mmol/L Blood Type A Positive Antibody Screen NEGATIVE Crossmatch See Detail Diagnostic Findings CT ANGIOGRAPHY OF THE ABDOMEN CLINICAL HISTORY: TIA bleed, hypotension. COMPARISON STUDY: CTA of the abdomen and pelvis October 21, 2024. Chest CT October 25, 2024. TECHNIQUE: Helical axial images of the abdomen and pelvis were obtained during arterial phase following intravenous injection of 115 cc Optiray 320 IV. Sagittal and coronal reformats were viewed. A dose lowering technique was utilized adhering to the principles of ALARA. FINDINGS: Body wall edema is incidentally noted. Visualized portions of bilateral pleural effusions and extensive bilateral lower lobe airspace opacities are similar to chest CT of October 25, 2024. Lower lobe moderate loss is present. No pneumatosis, free air or portal venous gas within the abdomen is present. There are gallstones within the gallbladder. There is no evidence for acute cholecystitis. Arterial phase images of the liver, spleen, right adrenal gland and pancreas are unremarkable. Is no biliary or pancreatic ductal dilatation. Left adrenal nodularity is of doubtful significance. The caliber and wall thickness of visualized small and large bowel are normal. There is a moderate amount of stool within visualized portions of the colon. No intraluminal contrast is identified within visualized portions of the bowel. A 2.5 cm right perirenal hyperdense focus remains unchanged. This is of questionable significance. There is no hydronephrosis. There is no abdominal lymphadenopathy. Extensive atherosclerotic plaque within the abdominal aorta is noted. There is a 3.2 cm infrarenal abdominal aortic aneurysm. The superior mesenteric and inferior mesenteric arteries are patent. The bilateral renal arteries are patent. There is moderate plaque at the origins of the renal arteries without stenosis. There is mild to moderate narrowing of the proximal celiac axis. The configuration favors median arcuate ligament compression. There is mild dilatation of the proximal celiac axis, measuring 1.2 cm. No severe stenosis is identified. Apparent gastric fold thickening is noted. This may be due to underdistention. Appearance of L1 and L2 compression fractures with vertebral body height loss and retropulsion at the L1 level remains unchanged. IMPRESSION: 1. Extensive atherosclerotic plaque within the abdominal aorta with a 3.2 cm i nfrarenal abdominal aortic aneurysm. 2. Patent SMA and ANJU. Mild to moderate narrowing of the proximal celiac axis, as described above, with mild dilatation of the celiac axis. 3. No intraluminal contrast within visualized portions of the bowel. 4. Gastric fold thickening. This is likely due to underdistention although is nonspecific and gastritis could appear similar. 5. Partially visualize bilateral pleural effusions and extensive bilateral lower lobe airspace opacities with volume loss, similar to chest CT of October 25, 2024. 6. No change in appearance of the L1 and L2 compression fractures, as determined above. (2) Anemia Anemia type: other cause Other causes of anemia: acute posthemorrhagic Qualified Code(s): D62 - Acute posthemorrhagic anemia (3) GI bleed GI bleed type/associated pathology: unspecified gastrointestinal hemorrhage type Qualified Code(s): K92.2 - Gastrointestinal hemorrhage, unspecified
[2024-10-26] MEDS: INSULIN ASPART PER UNIT CHARGE SC SCH (15:51)
--- NOTE | 2024-10-26 16:17 | XRay Report ---
EXAM: Radiograph of the Chest 1 View INDICATION: Postintubation TECHNIQUE: Frontal view of the chest. COMPARISON: 10/20/2024 FINDINGS: Lungs and pleural spaces: Stable small basilar pleural effusions. There is stable airspace consolidation in the left lung base. There is improved aeration of the right lung base. No pneumothorax. Heart: Stable large cardiac shadow. Mediastinum: Normal contour. Bones/joints: No fracture, erosion or dislocation. Soft tissues: No abnormality noted. No radiopaque foreign body noted. Vasculature: Stable ectatic calcified aorta. Tubes, lines and devices: The endotracheal tube terminates approximately 5.5 cm above the edith. Right peripherally inserted central catheter (PICC) tip in the distal superior vena cava. Upper abdomen: No abnormality noted. IMPRESSION: 1. Lines and tubes as above. 2. Improved aeration right lung base. 3. Stable pleural effusions and left basilar airspace consolidation. ACT 112: N/A Electronically signed by Melody Russo 10-26-2024 4:16 PM
--- NOTE | 2024-10-26 16:57 | Discharge Summary ---
Discharge Summary Date of Service October 26, 2024 Principal Dx & Hospital Course #1 = Principal Diagnosis (1) GI bleed: (2) Sacral wound: (3) Discitis: (4) Hyponatremia: Plan 79-year-old male PMHx sacral ulcers, GERD, PUD w/ h/o UGI, HTN, HLD, and T2DM presenting for rectal bleed. Had recent stay at [facility] with CHF, PNA and discitis. as having ongoing back pain, total duration of 6 months; found to have L1-L2 compression fracture with retropulsion at that time. Repeat MRI performed with persistent changes and possibility of mild progression, neurosurgery and infectious disease recommended 6 weeks ceftriaxone and vancomycin for possibility of discitis. Does also have history of large right inguinal hernia but had refused surgical consultation at . From [facility] he was discharged to [facility] on 09/28. On 10/16 he left [facility] for home, but presented back on 10/18. On 10/19 he was transferred from [facility] to [place] for rectal bleeding with hgb of 7. #GI bleed CTA of abdomen & pelvis on admission: proctitis. GI consulted - s/p EGD 10/20 without cause of bleed, started colo but not fully prepped, will require colonoscopy at some point when stable however given complexity of his case this was deferred. Received 1 unit PRBCs on 10/20 and again on 10/23. Overnight 10/25-10/26 acute GI bleed with hypotension. Transferred down to the ICU and initiated on levophed and mass transfusion protocol. On 10/26 Received 8 units of PRBCs and 2 Units of FFP. Bedside colonoscopy was performed by Dr. Nunez without source of bleed, however noting to be coming from the rectum. 2cc epi was injected, no clips were placed. Seen by General surgery and had sigmoid-proctoscopy preformed and gel-foam placed. Patient was accepted to [facility] by Dr. Macy Lawton. Requested 1 unit FFP/ PRBCs/Platelets to be hung prior to transportation. Blood blank and primary RN aware. #Sacral ulcer - present on admission *Pressure ulcer of left heel, stage 3, POA *Pressure ulcer right lateral back, stage 3, POA *Pressure ulcer middle back, stage 3, POA *Pressure ulcer of sacral region, stage 4, POA General surgery consulted- s/p Sacral Debridement and Bone Bx with Dr. Mcclellan 10/24, WC RN consulted for post op management - no wound vac has been placed yet. Superifical Wound culture 10/20: + for E coli ESBL and Pseudomonas -- abx switched to meropenem 10/23. ID consulted - continue meropenem and vancomycin, check blood cultures, multi-modal approach for wound healing OR wound culture: no growth to date #Right Intra-Atrial Mass 5.3 Seen on Echo 10/24, suspect clot, heparin drip started 10/24, however stopped with GI bleeding 0415 10/26. Concern that this is connected to his PICC Line. Cardiology recommending tertiary canter for catheter directed therapy. terminal system operator consider DOAC #Discitis / Compression fractures Per PH d/c summary "Noted to have probable osteomyelitis and discitis and had 2 biopsies both which yield was negative. Due to high clinical suspicion, it was recommended that we treat him for 6 weeks with IV antibiotics by neurosurgery. ID was involved and infectious disease recommends 6 weeks of IV antibiotics with vancomycin and Rocephin" [6 week end date of 11/03] ID following - continue vanco and meropenem. Repeat MRI T/L spine ordered 10/24 but patient refusing, even with premedication. CT L-spine 10/25 showing unchanged severe L1 and L2 fractures, extensive bony erosion with retropulsion. Favor subacute fractures. [facility] consulted - severe degeneration, likely not infected, observation only #T2DM Home regimen: metformin, pioglitazone, Jardiance - HELD. A1c 8.4% Pharm glycemic management consult - on lantus 10units + SSI CF 35, Cr 14 #Chronic HFpEF H/o HFpEF per report, PH d/c summary states "noted to have right ventricular failure. he was started on lasix and will need a right heart cath as an outpatient" However no lasix dose listed on D/c summary (but does have jardiance). Effusions on chest CTA 10/25 - has not received any diuretic therapy because of low BPs #COPD- No O2 at baseline, presumed COPD per last hospital course; continue bronchodilator therapy Now intubated for procedures, had bronchoscopy and found secretions, polypid lesion-needs repeat bronchoscopy in 3 months #HTN- Losartan on hold secondary to hypotension #HLD- Atorvastatin #R inguinal hernia- Identified on prior CTAP with some loops of bowel present in the hernia, patient is at risk for developing incarcerated bowel but had refused surgical consult for such Dispo: transfer to [facility] Partner updated at bedside 10/23 & 10/24 & 10/[address] Paulson and Dr. Johnson, Dr. Nunez, Dr. Poole, [place] - ICU [place], and [facility] - MICU attening, SICU attending, and GI attending. Greater than 180 minutes spent on this case today Admission HPI Per Admitting Provider 79-year-old male PMHx sacral ulcers, GERD, PUD w/ h/o UGI, HTN, HLD, and T2DM presenting for rectal bleed. He was at [facility] rehab and the staff noted rectal bleeding on the day of arrival. Patient states that he is presenting today because of the wound on his backside which has been causing him pain. Reports that staff saw blood in his diaper earlier in the day, which was bright red in nature. States that he is having pain at the site specifically when moving. Reports that he does have a history of UGI but no liver disease. Some lower abdominal pain, no N/V/D/C per patient. Denies chest pain, SOB, palpitations, weakness, dizziness, or syncope. Patient without infectious symptoms or F/C. Was sent from [facility] for reported H/H 7.3/24.0 with overt blood in briefs. ED evaluation reveals no leukocytosis, H&H 10.1/32, PT/INR 12.1/1.1; CMP sodium 134, potassium 3.6, chloride 93, CO2 38, BUN 48, ratio 43.2, glucose 191, protein 5.8, albumin 2.7; EKG pending; CXR pending; Provided with Pantoprazole 80mg IV in ED. Patient brought to [facility] rehab, admitted 09/28/2024 after presenting to acute care on 09/12/2024 for back pain with increased edema and urinary frequency. Found to have diastolic congestive heart failure and then was transferred to [facility] given acute exacerbation of heart failure with PNA. Was having ongoing back pain, total duration of 6 months; found to have L1-L2 compression fracture with retropulsion at that time. Repeat MRI performed with persistent changes and possibility of mild progression, neurosurgery and infectious disease recommended 6 weeks ceftriaxone and vancomycin for possibility of discitis. Does also have history of large right inguinal hernia but had refused surgical consultation. Please see Dr. Baer's attestation for adjustments/additions to treatment plan. Discharge Exam General: intubated and sedated Resp: on vent CV: RRR, no murmur, Abd: normal bowel sounds, soft extremities: No LE pitting edema Discharge Plan Discharge Items Patient Disposition: Transfer Acute Care Hospital Reason For Visit: GI BLEED Discharge Diagnosis: GI bleed Activity: As commented below Activity Comment: pending dispo at [facility] Non-emergency contact: Primary Care Provider Call non-emergency contact if: you have any medication questions Follow-up/Referrals: Caden Roblero, DO [Primary Care Provider] - Diet: Other - See Diet Comment Addtl Attending Provider Instructions: Mr. Go, You are being transferred to [facility] for your acute medical issues. Finalized Med list will be on [place] [facility] discharge summary. Please follow up with your PCP after discharge from [place] [facility]. For [place] [facility] - Acute Issues: GI bleed - s/p colonscopy 10/26, likely bleeding source in rectum, no clips placed, 2cc epi injected. S/p 8 unit PRBCs and 2 units FFP. POC Hgb 10.5 at 1440 Sacral ulcer - debrided on 10/24. Continues on Vanco and Meropenen. 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 Heparin stopped 0415 10/26 Also with compression fractures with extensive bony erosion. Other isses - DM and HFpEf Pending Studies at Discharge: No Stand-Alone Forms: My [facility] Skilled Items Patient informed of condition?: Yes DNR: Yes Discharge Level of Care: Other Communicable Disease: No Discharge Prognosis: Deteriorating Lines: Peripheral IV and PICC Urinary Catheter: Yes Medications and DC Order Prescriptions: Continued atorvastatin 10 mg Tablet 10 mg PO HS melatonin 3 mg Tablet 6 mg PO HS nicotine 14 mg/24 hr Patch 24 Hour 1 patch TRANSDERMAL DAILY pantoprazole 40 mg Tablet,Delayed Release (Dr/Ec) 40 mg PO HS acetaminophen 325 mg Tablet 650 mg PO Q4 PRN (Reason: PAIN 1-3) lidocaine 4 % Adhesive Patch,Medicated 1 patch TOPICAL DAILY Rx Instructions: LOWER BACK APPLY IN MORNING AND REMOVE AT HS naloxone 4 mg/actuation [place],Non-Aerosol 4 mg INTRANASAL UD PRN (Reason: Opioid Overdose) ipratropium-albuterol 0.5 mg-3 mg(2.5 mg base)/3 mL Solution For Nebulization 3 ml INHALATION TID calcium carbonate 500 mg calcium (1,250 mg) Tablet,Chewable 500 mg PO Q8 PRN (Reason: Indigestion) ondansetron 4 mg Tablet,Disintegrating 4 mg PO Q6H PRN (Reason: NAUSEA OR VOMITING) oxycodone 20 mg Tablet,Oral Only,Ext.Rel.12 Hr 20 mg PO Q12H vancomycin 1.25 gram Recon Soln 1,250 mg IV QDL Rx Instructions: 1250 MG = 250 ML..IV PIGGYBACK INFUSE OVER 2.5 HR oxycodone 5 mg tablet 5 mg PO Q4 PRN (Reason: PAIN 4-6) oxycodone 5 mg Tablet 10 mg PO Q4H PRN (Reason: PAIN 7-10) Held Jardiance 25 mg Tablet 25 mg PO QAM Hold Instructions: Provider's Order losartan 25 mg tablet 25 mg PO DAILY Hold Instructions: Provider's Order sennosides-docusate sodium [Senokot-S] 8.6-50 mg Tablet 1 tab-cap PO QDL PRN (Reason: Constipation) Hold Instructions: Provider's Order docusate sodium [Colace] 100 mg Capsule 100 mg PO .Q12 HR PRN (Reason: Constipation) Hold Instructions: Provider's Order polyethylene glycol 3350 [Miralax] 17 gram/dose Powder 17 g PO QDL PRN (Reason: Constipation) Hold Instructions: Provider's Order pioglitazone [Actos] 15 mg Tablet 15 mg PO BIDM Hold Instructions: Provider's Order bumetanide 1 mg Tablet 1 mg PO BID Hold Instructions: Provider's Order Discontinued acetaminophen 500 mg Tablet 500 mg PO Q4 PRN (Reason: TEMP > OR = 100.5) ceftriaxone 2 gram recon soln 2,000 mg IV .QDL Rx Instructions: 2000MG = 1 VIAL, IV PIGGYBACK RATE 200 ML/HR. INFUSE OVER 30 MINUTES WITH TOTAL VOLUME 100 ML...STOP DATE 11/03/24 Discharge Orders: Discharge Order (Routine); Ordered 10/26/24 Ordered By: Shaye Brian/Other Patient Handouts: Managing Type 2 Diabetes Admission Data Admit Date/Time: 10/20/24 00:00 Attending Provider: Elin Reyes Admit Provider: Mark Baer Primary Care Provider: Caden Roblero Other Providers: [facility]; Mark Baer; Dagoberto Moe; Ariel Mcclellan; Lisa Flores; Ingrid Nj; Jaelyn Ruelas; Quinn Hart; Ashley Ziegler; Shweta Lee; Ciro Mariano; Jose Garcia Other Interventions: Discharge Summary Assessment (RN) Last Done: 10/20/24 14:07 Hospital Stay Data Consultations 10/19/24 23:55 ED Decision to Admit Stat 10/20/24 01:34 Consult Gastroenterology Routine Consult General Surgery Routine 10/23/24 08:38 Consult Infectious Diseases Routine 10/24/24 17:09 Consult Cardiology Routine 10/25/24 10:33 Consult Orthopedic Spine Surgery Routine 10/26/24 14:39 Radiology Transfer Of Images Stat Procedures Performed Operation Date: 10/26/24 17:00 Actual Procedures p Colonoscopy Zoey - [place]on Nunez MD Diagnostic Imagining Performed Chest X-Ray 10/20/24 00:59 EXAM: XR chest 1V portable CLINICAL HISTORY: HF. TECHNIQUE: An X-ray image of the chest is obtained in AP projection. COMPARISON: No prior studies are available for comparison. FINDINGS: Pulmonary Parenchyma: The right middle zone and bilateral lower zone have inhomogeneous areas. Prominent perihilar bronchovascular markings with peribronchial cuffing. Obscuration of right diaphragm and right costophrenic angle. The left costophrenic angle is not seen. Heart and Mediastinum: Mild cardiomegaly. No mediastinal widening or masses. No hilar or mediastinal lymphadenopathy. Bony Thorax: Age indeterminate displaced fracture of the left clavicle. Soft Tissues: Soft tissues overlying the chest wall are unremarkable. IMPRESSION: 1. Mild cardiomegaly. Perihilar pulmonary congestion. 2. The right middle zone and bilateral lower consolidation could represent an infectious process/Pulmonary edema. This could be due to CHF. 3. Mild right pleural effusion. The left costophrenic angle is not properly seen. 4. Age indeterminate displaced fracture of the left clavicle. Electronically signed by Kelton Patiño 10-20-2024 02:30 AM Chest X-Ray 10/20/24 07:00 XR chest 2V PA/lateral CLINICAL HISTORY: Hypoxia. COMPARISON STUDY: Chest radiograph performed earlier today. FINDINGS: Subacute to chronic distal left clavicular fracture is incidentally noted. A right PICC is in place. Tip projects over the cavoatrial junction. No pneumothorax. Moderate right and small left pleural effusions are similar to prior exam. Perihilar and bibasilar opacities are noted. Left basilar opacity has slightly increased. Pulmonary edema has slightly progressed. The heart is mildly enlarged. IMPRESSION: 1. Mild cardiomegaly with increase in interstitial pulmonary edema. 2. Moderate right and small left pleural effusions. Associated perihilar and bibasilar opacities, greater on the right, may represent atelectasis or consolidation. Radiographic follow-up is recommended. ACT 112: Negative or not required by law. Electronically signed by: Terry Tanner M.D. 10/20/2024 8:48 AM Abdomen/Pelvis CTA 10/20/24 16:35 CT ABDOMEN and PELVIS with INTRAVENOUS CONTRAST HISTORY: Abdominal pain TECHNIQUE: CT abdomen and pelvis with contrast. IV CONTRAST: 100 mL of OMNIPAQUE 300 ENTERIC CONTRAST: Not Given COMPARISON: FINDINGS: LOWER CHEST: Cardiac enlargement. Small right greater than left pleural fluids. Adjacent confluent pulmonary densities are likely atelectasis with possible superimposed pneumonia. LIVER: No focal lesion identified. GALLBLADDER/BILIARY: Small layering intraluminal hyperdense material may represent small gallstones and/or sludge. No evidence of cholecystitis on CT. No abnormal biliary dilatation. SPLEEN: Unremarkable. PANCREAS: Unremarkable. ADRENALS: Unremarkable. KIDNEYS: Small cortical cysts. No stones or hydronephrosis identified. PERITONEUM/RETROPERITONEUM. No lymphadenopathy by size criteria. Extensive atherosclerosis with stenoses of the celiac trunk, the SMA, the renal arteries and the ANJU. Stenoses of the iliac arteries. Infrarenal abdominal aortic aneurysm measuring up to 3.3 cm. GASTROINTESTINAL: No obstruction. There are inflammatory changes of the rectum with extensive wall thickening. Areas of increased vascularity along the wall of the inflamed rectum. Small hiatal hernia. ABDOMINAL WALL: Evidence of prior repair along the anterior abdominal and pelvic wall with mesh. There is a large right inguinal hernia containing a significant portion of the nondistended ascending colon. 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 REPRODUCTIVE: No pelvic mass detected. URINARY BLADDER: Valentine catheter in place. Intraluminal air likely relates to current instrumentation. BONES: Age-indeterminate compression fractures of L1 and L2 vertebral bodies with moderate retropulsion. IMPRESSION: Proctitis with increased arterial vascularity along the wall of the inflamed rectum. This may represent the source of bleeding. Large right inguinal hernia containing a significant portion of the nondistended ascending colon. 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 Age-indeterminate compression fractures of L1 and L2 vertebral bodies with moderate retropulsion. Small pleural fluids with subjacent bibasilar pulmonary densities that may represent atelectasis and pneumonia. Electronically signed by Jean Cox 10-20-2024 7:19 PM Chest CTA 10/25/24 09:59 CT angio chest PE protocol CT DOSE: 1943.16mGy*cm HISTORY: PE. TECHNIQUE: Multiple CTA images of the chest were obtained after the intravenous administration of 118 ml Optiray. Coronal and sagittal MIPS were obtained from the axial data set and were submitted for review. All measurements were obtained according to NASCET criteria. A dose lowering technique was utilized adhering to the principles of ALARA. COMPARISON STUDY: Chest radiograph dated 10/20/2024 FINDINGS: There is no evidence of a pulmonary embolism. There are moderate-sized bilateral pleural effusions. There is bilateral compressive atelectasis and/or consolidation of the lower lobes as well as2 a small component of the right middle lobe. There is no aortic aneurysm. There is no pericardial effusion. The heart is increased in transverse diameter. The upper abdominal images demonstrate compression deformities of L1 and L2 associated with the fragmentation and as this significant spinal canal stenosis as a result of retropulsion. It is unclear based upon this study whether these represent traumatic or pathologic fractures. Correlation with lumbar spine as CT or MRI is suggested. There is a low attenuation thickening of both limbs of the left adrenal gland. IMPRESSION: No evidence of pulmonary embolism. Bilateral pleural effusions with compressive atelectasis and/or consolidation in both lower lobes. Fragmented fractures of L1 and L2 with paraspinous soft tissue prominence and spinal canal stenosis. Recommend correlation with CT or MRI. Pathologic fractures or infection not excluded. ACT 112: Negative or not required by law. The above report was generated using voice recognition software. It may contain grammatical, syntax or spelling errors. Electronically signed by: Dipti Mcgovern M.D. 10/25/2024 12:[address] 10/25/24 10:[address] WITHOUT CONTRAST CLINICAL HISTORY: reveal compression fx vs bony destruction L1-L2 COMPARISON STUDY: CTA of the abdomen and pelvis October 20, 2024. TECHNIQUE: Axial images of the lumbar spine were obtained without IV contrast. Sagittal and coronal reformats were viewed. A dose lowering technique was utilized adhering to the principles of ALARA. FINDINGS: Please note that the chest CT will be reported separately. Bilateral pleural effusions are better depicted on that exam. For purposes of numbering on this exam, the L5-S1 disc space is assigned to axial image 337 of [id number]. There is mild lumbar spine levoscoliosis. A severe L2 compression fractures unchanged in appearance since CT of October 20, 2024. There is extensive bony erosion involving the inferior endplate of the L1 vertebral body with 80% loss of vertebral body height. Bony fragmentation is noted. A 1 cm bone fragment within the canal represents a retropulsed bone fragment which results in severe central canal stenosis. This is unchanged. There is also a fracture involving the superior plate of L2, unchanged appearance. This results in 60% loss of vertebral body height. There is no retropulsion at this level. There are healing fractures of the right transverse process of L1 and the bilateral transverse processes of L2 as well as the posterior bilateral 12th ribs. Mild paravertebral edema at the L1-L2 level is present. No definitive osseous lesion is identified. Central canal and neural foramen are suboptimally assessed given CT technique. Moderate disc space narrowing, endplate osteophytosis and facet arthrosis within the lumbar spine is present. A 3.3 cm infrarenal abdominal aortic aneurysm is incidentally noted. IMPRESSION: 1. Severe L1 and L2 compression fractures, unchanged in appearance since CT of October 20, 2024. Extensive bony erosion involving the inferior endplate of L1 with an associated 1 cm retropulsed bone fragment at the L1 level which results in severe central canal stenosis, unchanged. Although age indeterminate, subacute fractures are favored. No CT evidence for underlying malignancy. Although fractures and bony erosion centered at the L1-L2 level, the findings are not highly suggestive of discitis/osteomyelitis although correlation with evidence for an infectious process is recommended. 2. Healing fractures of the right transverse process of L1, bilateral L2 transverse processes and posterior 12th ribs. 3. Moderate multilevel degenerative disc disease and facet arthrosis within the lumbar spine. 4. Mild lumbar spine levoscoliosis. ACT 112: Negative or not required by law. Electronically signed by: Terry Tanner M.D. 10/25/2024 12:12 PM Abdomen CTA 10/26/24 08:19 CT ANGIOGRAPHY OF THE ABDOMEN CLINICAL HISTORY: TIA bleed, hypotension. COMPARISON STUDY: CTA of the abdomen and pelvis October 21, 2024. Chest CT October 25, 2024. TECHNIQUE: Helical axial images of the abdomen and pelvis were obtained during arterial phase following intravenous injection of 115 cc Optiray 320 IV. Sagittal and coronal reformats were viewed. A dose lowering technique was utilized adhering to the principles of ALARA. FINDINGS: Body wall edema is incidentally noted. Visualized portions of bilateral pleural effusions and extensive bilateral lower lobe airspace opacities are similar to chest CT of October 25, 2024. Lower lobe moderate loss is present. No pneumatosis, free air or portal venous gas within the abdomen is present. There are gallstones within the gallbladder. There is no evidence for acute cholecystitis. Arterial phase images of the liver, spleen, right adrenal gland and pancreas are unremarkable. Is no biliary or pancreatic ductal dilatation. Left adrenal nodularity is of doubtful significance. The caliber and wall thickness of visualized small and large bowel are normal. There is a moderate amount of stool within visualized portions of the colon. No intraluminal contrast is identified within visualized portions of the bowel. A 2.5 cm right perirenal hyperdense focus remains unchanged. This is of questionable significance. There is no hydronephrosis. There is no abdominal lymphadenopathy. Extensive atherosclerotic plaque within the abdominal aorta is noted. There is a 3.2 cm infrarenal abdominal aortic aneurysm. The superior mesenteric and inferior mesenteric arteries are patent. The bilateral renal arteries are patent. There is moderate plaque at the origins of the renal arteries without stenosis. There is mild to moderate narrowing of the proximal celiac axis. The configuration favors median arcuate ligament compression. There is mild dilatation of the proximal celiac axis, measuring 1.2 cm. No severe stenosis is identified. Apparent gastric fold thickening is noted. This may be due to underdistention. Appearance of L1 and L2 compression fractures with vertebral body height loss and retropulsion at the L1 level remains unchanged. IMPRESSION: 1. Extensive atherosclerotic plaque within the abdominal aorta with a 3.2 cm infrarenal abdominal aortic aneurysm. 2. Patent SMA and ANJU. Mild to moderate narrowing of the proximal celiac axis, as described above, with mild dilatation of the celiac axis. 3. No intraluminal contrast within visualized portions of the bowel. 4. Gastric fold thickening. This is likely due to underdistention although is nonspecific and gastritis could appear similar. 5. Partially visualize bilateral pleural effusions and extensive bilateral lower lobe airspace opacities with volume loss, similar to chest CT of October 25, 2024. 6. No change in appearance of the L1 and L2 compression fractures, as determined above. ACT 112: Negative or not required by law. Electronically signed by: Terry Tanner M.D. 10/26/2024 10:22 AM Chest X-Ray 10/26/24 15:41 EXAM: Radiograph of the Chest 1 View INDICATION: Postintubation TECHNIQUE: Frontal view of the chest. COMPARISON: 10/20/2024 FINDINGS: Lungs and pleural spaces: Stable small basilar pleural effusions. There is stable airspace consolidation in the left lung base. There is improved aeration of the right lung base. No pneumothorax. Heart: Stable large cardiac shadow. Mediastinum: Normal contour. Bones/joints: No fracture, erosion or dislocation. Soft tissues: No abnormality noted. No radiopaque foreign body noted. Vasculature: Stable ectatic calcified aorta. Tubes, lines and devices: The endotracheal tube terminates approximately 5.5 cm above the edith. Right peripherally inserted central catheter (PICC) tip in the distal superior vena cava. Upper abdomen: No abnormality noted. IMPRESSION: 1. Lines and tubes as above. 2. Improved aeration right lung base. 3. Stable pleural effusions and left basilar airspace consolidation. ACT 112: N/A Electronically signed by Melody Russo 10-26-2024 4:16 PM Pending Results Patient Have Any Pending Studies at Discharge: No Discharge Instructions Given to Patient (Per Discharging Provider) Mr. Go, You are being transferred to [facility] for your acute medical issues. Finalized Med list will be on [facility] discharge summary. Please follow up with your PCP after discharge from [facility]. For [facility] - Acute Issues: GI bleed - s/p colonscopy 10/26, likely bleeding source in rectum, no clips placed, 2cc epi injected. S/p 8 unit PRBCs and 2 units FFP. POC Hgb 10.5 at 1440 Sacral ulcer - debrided on 10/24. Continues on Vanco and Meropenen. 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 Heparin stopped 04110/26 Also with compression fractures with extensive bony erosion. Other isses - DM and HFpEf Supervising Physician Co-Signing Physician Notes PA Supervision Note: I personally saw and examined the patient. I verified all bruce points and agree with BRENT Prince with the following exceptions and/or additions: S-Pt seen on day of discharge, anxious about if he will . Discussed his critical condition and prognosis, treatment plan recommended. 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 -plan as above, [place] [facility] [place] Time Total Time Spent Total Time Spent (In Minutes): Time spent day of discharge 180 minutes including direct patient care, medication reconciliation, documentation, review of labs and images, and coordination of care. Coding Level of Care Code 76537 INP/OBS DISCH >30 MIN Diagnoses GI bleed K92.2 GI bleed type/associated pathology: unspecified gastrointestinal hemorrhage type Sacral wound S31.000A Encounter type: initial encounter Discitis M46.40 Hyponatremia E87.1
[2024-10-26 16:59] LABS: Hematocrit (blood only) 29.1 % (42.0-52.0); Hemoglobin 10.1 g/dl (14.0-18.0); Mean Corpuscular Hemoglobin 29.2 pg (25.0-34.0); Mean Corpuscular Hgb Conc 34.7 g/dL (32.0-36.0); Mean Corpuscular Volume 84.1 fL (80.0-100.0); Mean Platelet Volume 10.1 fL (9.4-12.4); Platelet Count 158 K/uL (130-400); RDW Coefficient of Variation 15.3 % (11.5-14.5); RDW Standard Deviation 46.2 fL (36.4-46.3); Red Blood Count 3.46 M/uL (4.70-6.10); White Blood Count 11.38 K/ul (4.8-10.8)
[2024-10-26] MEDS: LACTATED RINGER'S 1,000 ML IV SCH (17:39)
[2024-10-26] MEDS: CALCIUM CHLORIDE 10% 1,000 MG in DEXTROSE 5% 50 ML IV ONE ×2 (18:13→18:32)
[2024-10-26 18:18] LABS: Hematocrit (blood only) 26.3 % (42.0-52.0)
[2024-10-26] MEDS: fentaNYL BOLUS from BAG IV PRN (20:31)
[2024-10-26 20:51] LABS: Hemoglobin 8.4 g/dl (14.0-18.0); Platelet Count 154 K/uL (130-400)
[2024-10-26] MEDS ORDERED: INSULIN ASPART PER UNIT CHARGE SC SCH (21:00)
[2024-10-26] MEDS ORDERED: ETOMIDATE 2 MG/ML 20 ML VIAL IV ONE (22:07)
--- NOTE | 2024-10-31 13:18 | Coding Query ---
ANEMIA To promote full compliance with coding requirements relating to patient care, physician participation is requested in all cases of c2 tactical analysis technician uncertainty. Please assist us with the question(s) below: Coding Question(s): The record reflects the following clinical findings: GI Bleed/Diverticulosis w/bleed, Anemia requiring MTP, with multiple units, hypotension, tachycardia... Please specify the known or suspected type by placing an "X" within the parenthesis (x). If other, please document type. Examples are: (x ) Acute blood loss anemia ( ) Acute Postoperative blood loss anemia ( ) Acute postoperative anemia due to dilutional fluids ( ) Chronic blood loss anemia ( ) Anemia of chronic disease ( ) Aplastic anemia ( ) Anemia due to renal disease ( ) Anemia in neoplastic disease ( ) Iron deficient anemia ( ) Anemia, unspecified or other ( ) Other: (please specify) Thank you Omayra VILLASEÑOR
--- NOTE | 2024-10-31 13:20 | Coding Query ---
CODING QUERY To promote full compliance with coding requirements relating to patient care, provider participation is requested in all cases of recreation therapy aides teacher uncertainty. Please assist us with the question(s) below: Coding Question(s): Pt developed RA thromus, thought to be due to/involving PICC line. Please clarify below what the thrombus is due to. Physician's Response(s): Right atrial thrombus due to associated PICC line Thank you Omayra Patiño Principal Diagnosis: "that condition established after study, to be chiefly responsible for occasioning the admission of the patient to the hospital for care." Co-Existing Principal Diagnosis: "when two or more diagnoses equally meet the criteria for principal diagnosis as determined by the circumstances of admission, diagnostic work up, and/or therapy provided, and the Alphabetic Index, Tabular List, or another coding guideline does not provide sequencing direction, any one of the diagnoses may be sequenced first." "When the physician has documented what appears to be a current diagnosis in the body of the record, but has not included the diagnosis in the final diagnostic statement, the physician should be asked whether the diagnosis should be added." (Source [facility] 2 QTR90. p3-4) KASI
--- NOTE | 2024-11-04 10:21 | Operative Report ---
Post Operative Report Pre & Post Diagnosis Operation Date: 10/26/24 17:00 Pre-Op Diagnosis: GI BLEED Post-Op Diagnosis: GI bleed I identified the patient and participated in the time-out.: Yes Procedure Operation Date: 10/26/24 17:00 Rigid sigmoidoscopy and gel foam packing Surgeon Krystian Scott MD Professional Services Specialist none Estimated Blood Loss 50 Findings Consistent with Post-Op Diagnosis rectal bleed not easily identified Specimens none Drains none Anesthesia Type RN Sedation Complications none Indications 79YO with rectal bleed that will need transfer for possible further GI evalu ation or IR emblization. Description of Procedure Patient was placed in a lateral position in the ICU. He was sedated. A rigid sigmoidoscope was then obtained and then inserted into his distal rectum. No obvious source of bleeding was seen. Some Gelfoam was then inserted. He tolerated procedure without complications. I attest to the content of the Intraoperative Record and any orders documented therein. Any exceptions are noted below.
== END 2024-10-26 22:08 | DRG 356 ==
LOC: ED 21:10 → SUATTDRO 10-20 → 2S 10-20 → 1E 10-26 08:41